=== PATIENT | female | born 1955 | race Caucasian/White ===

== ENCOUNTER → 2017-08-07 | Outpatient (CLI) | payer OTHER ==
--- NOTE | 2017-08-08 08:01 | MM ---
Reason for exam: screening (asymptomatic). Last mammogram was performed 1 year ago. History: Patient is postmenopausal. Physical Findings: A clinical breast exam by your physician is recommended on an annual basis and results should be correlated with mammographic findings. MG Screening Mammo w CAD Bilateral CC and MLO view(s) were taken. Prior study comparison: August 02, 2016, bilateral MG screening mammo w CAD. July 15, 2015, bilateral MG screening mammo w CAD. The breast tissue is heterogeneously dense. This may lower the sensitivity of mammography. There is no discrete abnormality. No significant changes when compared with prior studies. ASSESSMENT: Negative, BI-RAD 1 RECOMMENDATION: Routine screening mammogram of both breasts in 1 year.
== END | disposition home or self-care (01) ==
LOC: RADMAMWWP 10:19
PROVIDERS: ATTEND Family Medicine
DX: Z12.31 Encounter for screening mammogram for malignant neoplasm of breast (principal)

== ENCOUNTER → 2018-08-22 | Outpatient (CLI) | payer OTHER ==
--- NOTE | 2018-08-23 12:25 | MM ---
Reason for exam: screening (asymptomatic). Last mammogram was performed 1 year ago. History: Patient is postmenopausal. Physical Findings: A clinical breast exam by your physician is recommended on an annual basis and results should be correlated with mammographic findings. MG Screening Mammo w CAD Bilateral CC and MLO view(s) were taken. Prior study comparison: August 07, 2017, bilateral MG screening mammo w CAD. August 02, 2016, bilateral MG screening mammo w CAD. The breast tissue is heterogeneously dense. This may lower the sensitivity of mammography. There is chronic nodularity in the left breast. There is no dominant lesion. No significant changes when compared with prior studies. ASSESSMENT: Benign, BI-RAD 2 RECOMMENDATION: Routine screening mammogram of both breasts in 1 year.
== END | disposition home or self-care (01) ==
LOC: RADMAMWWP 09:32
PROVIDERS: ATTEND Family Medicine
DX: Z12.31 Encounter for screening mammogram for malignant neoplasm of breast (principal)
CPT/HCPCS: 77067

== ENCOUNTER → 2019-10-04 | Outpatient (CLI) | payer OTHER ==
--- NOTE | 2019-10-10 10:01 | MM ---
Reason for exam: screening (asymptomatic). Last mammogram was performed 1 year and 1 month ago. History: Patient is postmenopausal. Physical Findings: A clinical breast exam by your physician is recommended on an annual basis and results should be correlated with mammographic findings. MG 3D Screening Mammo W/Cad Bilateral CC and MLO view(s) were taken. Prior study comparison: August 22, 2018, bilateral MG screening mammo w CAD. August 07, 2017, bilateral MG screening mammo w CAD. There are scattered fibroglandular densities. There is chronic nodularity in the left breast. No significant changes when compared with prior studies. ASSESSMENT: Benign, BI-RAD 2 RECOMMENDATION: Routine screening mammogram of both breasts in 1 year.
== END | disposition home or self-care (01) ==
LOC: RADMAMWWP 09:51
PROVIDERS: ATTEND Family Medicine
DX: Z12.31 Encounter for screening mammogram for malignant neoplasm of breast (principal)
CPT/HCPCS: 77063; 77067

== ENCOUNTER → 2021-01-19 | Outpatient (CLI) | payer OTHER ==
--- NOTE | 2021-01-19 15:41 | US ---
EXAMINATION TYPE: US thyroid st tissue head/neck DATE OF EXAM: 01/19/2021 COMPARISON: NONE CLINICAL HISTORY: R94.6 Abn thyroid labs. Tekes Levothyroxine GLAND SIZE: Right Lobe: 6.1 x 3.5 x 3.6 cm Overall Parenchyma: heterogenous Left Lobe: 5.7 x 2.3 x 2.6 cm Overall Parenchyma: heterogeneous Isthmus Thickness: 0.9 cm NODULES RIGHT: # of nodules measured on right: 3 largest of multiple 1. 1.8 X 1.9 x 2.0 cm, upper, solid, hyperechoic nodule, which is taller than wide, with smooth mar gins, without echogenic foci. 2. 1.8 X 2.0 x 2.0 cm, mid pole, solid or almost completely solid, hypoechoic nodule, which is wide as tall, with smooth margins, without echogenic foci. 3. 1.9 1.3x 1.5m, lower pole, mixed cystic and solid, hypoechoic nodule, which is taller than wide, with ill-defined margins, with echogenic foci. LEFT: # of nodules measured on left: 2 largest of multiple 1.1.4 X 1.7 x 1.0 cm, mid pole , solid or almost completely solid, hyperechoic nodule, which is wide r than tall, with ill-defined margins, without echogenic foci. 2. 0.6 X 0.4 x 0.4 cm, lower , mixed cystic and solid, hyperechoic nodule, which is wide as is milton l, with ill-defined margins, with echogenic foci. ISTHMUS: # of nodules measured in the isthmus: 0 Bilateral neck scanned: no evidence of lymphadenopathy. IMPRESSION: 1. Thyroidomegaly with nonspecific, multiple thyroid nodules as noted above. The need to biopsy shoul d be made clinically.
--- NOTE | 2021-01-19 15:44 | US ---
EXAMINATION TYPE: US carotid duplex BILAT DATE OF EXAM: 01/19/2021 COMPARISON: NONE CLINICAL HISTORY: I10 HTN R09.89 Carotid bruit.... Controlled HTN EXAM MEASUREMENTS: RIGHT: Peak Systolic Velocity (PSV) cm/sec ----- Right CCA: 76.3 ----- Right ICA: 87.9 ----- Right ECA: 73.3 ICA/CCA ratio: 1.2 RIGHT: End Diastole cm/sec ----- Right CCA: 22.3 ----- Right ICA: 22.2 ----- Right ECA: 21.2 LEFT: Peak Systolic Velocity (PSV) cm/sec ----- Left CCA: 66.9 ----- Left ICA: 91.0 ----- Left ECA: 89.9 ICA/CCA ratio: 1.4 LEFT: End Diastole cm/sec ----- Left CCA: 19.6 ----- Left ICA: 32.6 ----- Left ECA: 10.6 VERTEBRALS (direction of flow): Right Vertebral: Antegrade Left Vertebral: Antegrade Rhythm: Arrhythmia Very mild intimal wall thickening is noted at bilateral carotid bifurcation. IMPRESSION: No evidence for hemodynamically significant stenosis. Criteria for Assigning % of Stenosis / Diameter reduction (Estimation based on the indirect measurements of the internal carotid artery velocities (ICA PSV). 1. Normal (no stenosis)=ICA PSV < 125 cm/s: ratio < 2.0: ICA EDV<40 cm/s. 2. Less than 50% stenosis=ICA PSV < 125 cm/s: ratio < 2.0: ICA EDV<40 cm/s. 3. 50 to 69% stenosis=ICA PSV of 125 to 230 cm/s: ration 2.0 ? 4.0: ICA EDV 40-100 cm/s. 4. Greater than 70% stenosis to near occlusion= ICA PSV > 230 cm/s: ratio > 4.0: ICA EDV > 100 cm/s. 5. Near occlusion= ICA PSV velocities may be low or undetectable: variable ratio and ICA EDV. 6. Total occlusion=unable to detect flow.
--- NOTE | 2021-01-20 10:52 | ECHOF ---
Referral Reason:R94.1 Abn EKG I10 HTN R09.89 Carotid bruit... MEASUREMENTS -------- HEIGHT: 160.0 cm WEIGHT: 120.2 kg BP: IVSd: 1.4 cm (0.6 - 1.1) LVIDd: 4.3 cm (3.9 - 5.3) LVPWd: 1.4 cm (0.6 - 1.1) EDV(Teich): 84 ml IVSs: 1.6 cm LVIDs: 2.8 cm LVPWs: 1.8 cm %IVS Thck: 14 % ESV(Teich): 30 ml EF(Teich): 64 % %FS: 35 % SV(Teich): 54 ml RVIDd: 3.8 cm (< 3.3) IVC: 24.78 mm RA Diam: 5.1 cm LALs A4C: 5.3 cm LAAs A4C: 19.1 cm LAESV A-L A4C: 58 ml LAESV MOD A4C: 56 ml LALs A2C: 6.0 cm LAAs A2C: 23.7 cm LAESV A-L A2C: 80 ml LAESV MOD A2C: 76 ml LAESV(A-L): 72 ml LAESV Index (A-L): 33.11 ml/m Ao Diam: 2.9 cm (2.0 - 3.7) LA Diam: 4.6 cm (2.7 - 3.8) AV Cusp: 2.2 cm (1.5 - 2.6) EPSS: 0.4 cm MV E [place]: 1.19 m/s MV DecT: 209 ms MV Dec [place]: 5.7 m/s MV A [place]: 1.37 m/s MV E/A Ratio: 0.87 MV PHT: 61 ms LVOT Vmax: 1.14 m/s LVOT maxP.20 mmHg AV Vmax: 1.75 m/s AV maxP.47 mmHg TR Vmax: 3.18 m/s TR maxP.37 mmHg RAP: 5.00 mmHg RVSP: 45.37 mmHg MV EF SLOPE: 43.85 mm/s (70 - 150) MV EXCURSION: 13.26 mm (> 18.000) FINDINGS -------- Sinus rhythm. This was a technically difficult study with suboptimal apical views. The left ventricular size is normal. There is moderate concentric left ventricular hypertrophy. O verall left ventricular systolic function is normal with, an EF between 55 - 60 %. The right ventricle is mild to moderately enlarged. LA is midly dilated 29-33ml/m2. The right atrium is mildly enlarged. 5.0mg of Lumason was utilized for enhancement of images Interatrial and interventricular septum intact. There is no evidence of aortic regurgitation. There is no evidence of aortic stenosis. [id number]-fncggtng mitral regurgitation is present. Moderate tricuspid regurgitation present. There is moderate pulmonary hypertension. The right mariza tricular systolic pressure, as measured by Doppler, is 45.37mmHg. There is no pulmonic regurgitation present. The aortic root size is normal. The inferior vena cava is mildly dilated. There is no pericardial effusion. CONCLUSIONS -------- 1. The left ventricular size is normal. 2. There is moderate concentric left ventricular hypertrophy. 3. Overall left ventricular systolic function is normal with, an EF between 55 - 60 %. 4. The right ventricle is mild to moderately enlarged. 5. LA is midly dilated 29-33ml/m2. 6. The right atrium is mildly enlarged. 7. Rcpm-in-itmhsnkh mitral regurgitation is present. 8. Moderate tricuspid regurgitation present. 9. There is moderate pulmonary hypertension. 10. The right ventricular systolic pressure, as measured by Doppler, is 45.37mmHg. 11. The inferior vena cava is mildly dilated. SENIOR WEB ARCHITECT: Anuja Mcguire RDCS
== END | disposition home or self-care (01) ==
LOC: RADECHMAIN 12:55
PROVIDERS: ATTEND Family Medicine
DX: I08.1 Rheumatic disorders of both mitral and tricuspid valves (principal); I27.20 Pulmonary hypertension, unspecified; E04.2 Nontoxic multinodular goiter
CPT/HCPCS: 76536; 93880; C8929; Q9950; 93306

== ENCOUNTER → 2021-02-24 | Outpatient (CLI) | payer MEDICARE, OTHER ==
--- NOTE | 2021-02-25 13:17 | MM ---
Reason for exam: screening (asymptomatic). Last mammogram was performed 1 year and 5 months ago. History: Patient is postmenopausal. Physical Findings: A clinical breast exam by your physician is recommended on an annual basis and results should be correlated with mammographic findings. MG Screening Mammo w CAD Bilateral CC and MLO view(s) were taken. XCCL view(s) were taken of the left breast. Prior study comparison: October 04, 2019, bilateral MG 3d screening mammo w/cad. August 22, 2018, bilateral MG screening mammo w CAD. There are scattered fibroglandular densities. There is no discrete abnormality. No significant changes when compared with prior studies. ASSESSMENT: Negative, BI-RAD 1 RECOMMENDATION: Routine screening mammogram of both breasts in 1 year.
== END | disposition home or self-care (01) ==
LOC: RADMAMWWP 08:48
PROVIDERS: ATTEND Family Medicine
DX: Z12.31 Encounter for screening mammogram for malignant neoplasm of breast (principal); Z78.0 Asymptomatic menopausal state
CPT/HCPCS: 77067

== ENCOUNTER → 2022-03-22 | Outpatient (CLI) | payer MEDICARE, OTHER ==
--- NOTE | 2022-03-23 16:44 | BD ---
EXAMINATION TYPE: Axial Bone Density DATE OF EXAM: 03/22/2022 COMPARISON: NONE CLINICAL HISTORY: 67 years year old Female. ICD-10 CODE: N95.1 POST MENOPAUSAL SYMPTOMS Height: 63.5 Weight: 251 FRAX RISK QUESTIONS: Alcohol (3 or more units per day): NO Family History (Parent hip fracture): YES MOTHER AND FATHER Glucocorticoids (More than 3mos): NO History of Fracture in Adulthood: NO Secondary Osteoporosis: 1. Type 1 Diabetes: NO 2. Hyperthyroidism: NO 3. Menopause before 45: NO 4. Malnutrition: NO 5. Chronic liver disease: NO Rheumatoid Arthritis: NO Current Tobacco Use: NO RISK FACTORS HISTORY OF: Hip Fracture (Right/Left): NO Spine Fracture: NO History of Wrist Fracture: NO Surgery to Spine/Hip(right/left)/Wrist (right/left): NO Family History of Osteoporosis: NO Active: NO Diet low in dairy products/other sources of calcium: NO Postmenopausal woman: YES Take estrogen and/or progesterone medications: NO Lost more than 2 inches in height since high school: NO Frequent falls: NO Poor Health: NO Hyperparathyroidism: NO Adrenal Insufficiency: NO MEDICATIONS: Prednisone or other steroids: NO` Thyroid Medications: LEVOTHYROXINE How Long: PAST 4 YEARS Osteoporosis Medications:NO Additional Medications: ENALAPRIL, CHOLESTEROL MEDS, MULTI VIT., EXAM MEASUREMENTS: Bone mineral densitometry was performed using the Videoflow System. Bone mineral density as measured about the Lumbar spine is: ----- L1-L4(G/cm2): 1.158 T Score Values are as follows: ----- L1: -0.9 ----- L2: -1.0 ----- L3: 1.4 ----- L4: -0.6 ----- L1-L4: -0.2 BASELINE STUDY Bone mineral density about the R hip (g/cm2): 0.932 Bone mineral density about the L hip (g/cm2): 0.912 T Score values are as follows: -----R Neck: -0.8 -----L Neck: -0.9 -----R Total: -0.2 -----L Total: 0.1 BASELINE STUDY FRAX%s: The graph provided illustrates a 4.9% chance for a major osteoporotic fx and a 0.4% chance fo r the hips probability for fx in 10 years time. IMPRESSION: Normal (Values between +1 and -1 indicate normal bone mass). Consider repeating this study in 5 year s or sooner if there is some new clinical indication. NOTE: T-SCORE=SD OF THE YOUNG ADULT MEAN.
--- NOTE | 2022-03-27 17:37 | MM ---
Reason for Exam: Screening (asymptomatic). Last mammogram was performed 1 year(s) and 1 month(s) ago. Patient History: Menarche at age 14. Patient has no children. Postmenopausal. Risk Values: Shahana 5 year model risk: 1.9%. NCI Lifetime model risk: 6.7%. Prior Study Comparison: 08/22/2018 Bilateral Screening Mammogram, [facility]. 10/04/2019 Bilateral Screening Mammogram, [facility]. 02/24/2021 Bilateral Screening Mammogram, [facility]. Tissue Density: There are scattered fibroglandular densities. Findings: Analyzed By CAD. Chronic nodularity central left breast. No significant change from prior exams. Overall Assessment: Benign, BI-RAD 2 Management: Screening Mammogram of both breasts in 1 year. 1. A clinical breast exam by your physician is recommended on an annual basis and results should be correlated with mammographic findings. 2. The patient should continue monthly self breast exams. 3. A negative mammogram should not preclude additional follow-up of suspicious palpable abnormalities. Electronically signed and approved by: Michael Silva M.D. Radiologist
== END | disposition home or self-care (01) ==
LOC: RADMAMWWP 14:27
PROVIDERS: ATTEND Family Medicine
DX: Z12.31 Encounter for screening mammogram for malignant neoplasm of breast (principal); Z78.0 Asymptomatic menopausal state
CPT/HCPCS: 77067; 77080

== ENCOUNTER 2022-04-09 08:03 | Emergency (ER) | payer MEDICARE, OTHER ==
[2022-04-09 08:11] VITALS: RESP 16
--- NOTE | 2022-04-09 08:22 | ED ---
Fall HPI - General Chief Complaint: Fall Stated Complaint: Abd pain/IHS Time Seen by Provider: 04/09/22 08:13 Source: patient, RN notes reviewed Mode of arrival: ambulatory Limitations: no limitations - History of Present Illness Initial Comments: This is a 67-year-old female presents emergency Department chief complaint of right-sided rib pain. Patient states that she had a trip and fall on falling onto the ground. Patient states she no other injuries but melena right side is complaining of right-sided rib pain. She denies any significant bruising or shortness breath at rest she does complain of pain with certain movements especially twisting, bending and deep inspiration. Patient denies any hematuria and no abdominal bruising or abdominal pain. - Related Data Previous Rx's Medication Instructions Recorded traMADol HCl [Ultram] 50 mg PO Q6H PRN #12 tab 04/09/22 Allergies Allergy/AdvReac Type Severity Reaction Status Date / Time acetaminophen Allergy Rash/Hives Verified 04/09/22 08:05 Review of Systems ROS Statement: Those systems with pertinent positive or pertinent negative responses have been documented in the HPI. ROS Other: All systems not noted in ROS Statement are negative. Past Medical History Past Medical History: Hyperlipidemia, Hypertension, Thyroid Disorder History of Any Multi-Drug Resistant Organisms: None Reported Past Surgical History: No Surgical Hx Reported Past Psychological History: No Psychological Hx Reported Smoking Status: Current every day smoker Past Alcohol Use History: None Reported Past Drug Use History: None Reported General Exam Limitations: no limitations General appearance: alert, in no apparent distress Head exam: Present: atraumatic, normocephalic, normal inspection Eye exam: Present: normal appearance, PERRL, EOMI. Absent: scleral icterus, conjunctival injection, periorbital swelling Neck exam: Present: normal inspection, full ROM. Absent: tenderness, meningismus, lymphadenopathy Respiratory exam: Present: normal lung sounds bilaterally, chest wall tenderness (Right sided anterior lateral rib tenderness). Absent: respiratory distress, wheezes, rales, rhonchi, stridor Cardiovascular Exam: Present: regular rate, normal rhythm, normal heart sounds. Absent: systolic murmur, diastolic murmur, rubs, gallop, clicks Back exam: Present: full ROM. Absent: tenderness, paraspinal tenderness, vertebral tenderness Neurological exam: Present: alert, oriented X3, CN II-XII intact, reflexes normal. Absent: motor sensory deficit Skin exam: Present: warm, dry, intact, normal color. Absent: rash Course Vital Signs 04/09/22 08:06 Temperature 97.9 F Pulse Rate 105 H Respiratory 16 Rate Blood Pressure 150/76 O2 Sat by Pulse 99 Oximetry Medical Decision Making - Medical Decision Making X-rays and is negative for acute fracture, pneumothorax. Patient has right- sided rib contusion. Patient discharged with pain control return parameters were discussed rediscussed deep inspiration. Disposition Clinical Impression: Fall, Contusion of rib on right side Disposition: HOME SELF-CARE Condition: Stable Instructions (If sedation given, give patient instructions): Rib Contusion (ED) Additional Instructions: Please return to the Emergency Department if symptoms worsen or any other concerns. Prescriptions: traMADol HCl [Ultram] 50 mg PO Q6H PRN #12 tab PRN Reason: Pain Is patient prescribed a controlled substance at d/c from ED?: Yes When asked, does pt state using other controlled substances?: No If prescribed controlled substance>3 days was MAPS reviewed?: Prescribed <3 Days If opioid is for acute pain is fill amount 7 days or less?: Yes If Rx opioid, was Start Talking consent form obtained?: Yes Referrals: Page Stahl MD [Primary Care Provider] - 1-2 days Time of Disposition: 09:03
--- NOTE | 2022-04-09 08:44 | XR ---
EXAMINATION TYPE: XR ribs RT w pa chest xray DATE OF EXAM: 04/09/2022 COMPARISON: NONE HISTORY: Pain TECHNIQUE: Single view of the chest 4 views of the ribs are submitted. FINDINGS: The lungs are clear. No Evidence for pneumothorax. No evidence for focal contusion. Medi astinal structures are midline. Evaluation of the ribs fails to demonstrate evidence for displaced r ib fracture or secondary sign of rib fracture. IMPRESSION: Negative study
[2022-04-09 09:14] VITALS: BP 175/84; PULSE 87; TEMP 98
== END 2022-04-09 09:12 | disposition home or self-care (01) ==
LOC: EC 08:03
DX: S20.211A Contusion of right front wall of thorax, initial encounter (principal); I10 Essential (primary) hypertension; E78.5 Hyperlipidemia, unspecified; F17.200 Nicotine dependence, unspecified, uncomplicated; W01.0XXA Fall on same level from slipping, tripping and stumbling without subsequent striking against object, initial encounter
CPT/HCPCS: 99284

== ENCOUNTER → 2022-04-13 | Outpatient (CLI) | payer MEDICARE, OTHER ==
--- NOTE | 2022-04-13 12:50 | US ---
EXAMINATION TYPE: US thyroid st tissue head/neck DATE OF EXAM: 04/13/2022 COMPARISON: US 01/19/2021 CLINICAL HISTORY: E04.2 NONTOXIC MULTINODULAR GOITER. Multinodular Goiter, Enlarged Thyroid GLAND SIZE: Right Lobe: 6.9 x 3.1 x 2.9 cm Overall Parenchyma: heterogenous Left Lobe: 4.8 x 2.9 x 2.5 cm Overall Parenchyma: heterogeneous Isthmus Thickness: 0.6 cm NODULES RIGHT: # of nodules measured on right: 3 1. 2.1 X 2.0 x 2.2 cm, upper , solid , hyperechoic nodule, which is wider than tall, with smooth ma rgins, without echogenic foci. Prior size: 1.8 x 1.9 x 2.0 cm 2. 1.8 X 2.0 x 1.9 cm, mid pole, solid, hypoechoic nodule, which is taller than wide, with smooth m argins, without echogenic foci. Prior size: 1.8 x 2.0 x 2.0 cm 3. 1.1 X 1.2 x 1.4 cm, lower pole, mixed cystic and solid, hypoechoic nodule, which is wider than t all, with ill-defined margins, with echogenic foci. Prior size: 1.9 x 1.3 x 1.5 cm LEFT: # of nodules measured on left: 2 1. 2.2 X 1.3 x 1.9 cm, mid pole, solid or almost completely solid, hypoechoic nodule, which is wide r than tall, with ill-defined margins, without echogenic foci. Prior size: 1.4 x 1.7 x 1.5 cm 2. 0.5 X 0.5 x 0.7 cm, lower polemixed cystic and solid, hyperechoic nodule, which is wider than ta ll, with ill-defined margins, with echogenic foci. Prior size: 0.6x0.4x 0.4m ISTHMUS: # of nodules measured in the isthmus: 0 Bilateral neck scanned, no evidence of lymphadenopathy. IMPRESSION: 1. Enlarging nodule midpole left thyroid lobe. Remaining nodularity remains stable. Glandular heterog eneity.
== END | disposition home or self-care (01) ==
LOC: RADUSWWP 10:48
PROVIDERS: ATTEND Internal Medicine
DX: E04.2 Nontoxic multinodular goiter (principal)
CPT/HCPCS: 76536

== ENCOUNTER → 2022-08-16 | Outpatient (CLI) | payer MEDICARE, OTHER ==
--- NOTE | 2022-08-16 18:10 | CT ---
EXAMINATION TYPE: CT abdomen pelvis w con CT DLP: 2475.9 mGycm, Automated exposure control for dose reduction was used. DATE OF EXAM: 08/16/2022 5:35 PM COMPARISON: None CLINICAL INDICATION:Female, 67 years old with history of R10.11 RIGHT UPPER QUADRANT PAIN,[id number]; RIGH T UPPER QUADRANT PAIN TECHNIQUE: Axial CT of the abdomen and pelvis. Sagittal and coronal reformats were created on a [employer] workstation. Contrast used:70ml mL of Isovue 300 with IV Contrast, Oral contrast used: with Oral Contrast FINDINGS: LOWER CHEST: Unremarkable ABDOMEN LIVER: Unremarkable GALLBLADDER AND BILE DUCTS: Unremarkable. PANCREAS: Unremarkable. SPLEEN: Unremarkable. ADRENAL GLANDS: Unremarkable. KIDNEYS AND URETERS: Is a dominant mass within the right kidney measuring 10.4 x 9.4 x 10.7 cm. Saccu lar outpouching extends more cephalad measuring at least 4.3 x 1.8 cm which is better appreciated on sagittal imaging series 8 image 52. No evidence of hydronephrosis within either kidney. There is no c ontrast seen on delayed imaging of the right kidney. Around the right renal mass there is vascular re cruitment with tortuous vessels noted. This mass displaces the IVC medially. PELVIS BLADDER: Unremarkable REPRODUCTIVE: Somewhat lobulated contour to the uterus. ABDOMEN & PELVIS STOMACH AND BOWEL: No evidence of bowel obstruction. PERITONEUM: No evidence of pneumoperitoneum or free fluid. VASCULATURE: No evidence of aortic aneurysm. MUSCULOSKELETAL: No acute osseous abnormalities, multilevel disc degeneration changes are seen throug hout the spine. LYMPH NODES: No gross evidence for lymphadenopathy. SOFT TISSUE/ABDOMINAL WALL: Small fat-containing umbilical hernia. IMPRESSION: 1. Right renal mass measuring up to at least 10.7 cm which extends beyond the renal margin is felt t o be extending more superiorly. Findings highly concerning for renal cell carcinoma. Further workup i s recommended. 2. Lobulated uterus which could represent underlying fibroid changes. Consider pelvic ultrasound if n ot recently performed for evaluation of the endometrium.
== END | disposition home or self-care (01) ==
LOC: RADCTMAIN 15:11
PROVIDERS: ATTEND Family Medicine
DX: N28.89 Other specified disorders of kidney and ureter (principal); N85.8 Other specified noninflammatory disorders of uterus
CPT/HCPCS: 74177; Q9967

== ENCOUNTER 2022-08-21 11:44 | Observation (INO) | payer MEDICARE, OTHER ==
[2022-08-21 12:13] LABS: Basophils % (A) 0 %; Eosinophils # (A) 0.1 k/uL (0-0.7); Eosinophils % (A) 1 %; HCT 34.2 % (34.0-46.0); HGB 11.1 gm/dL (11.4-16.0); Hypochromasia Slight; Lymphocytes # (A) 0.5 k/uL (1.0-4.8); Lymphocytes % (A) 3 %; MCH 27.5 pg (25.0-35.0); MCHC 32.4 g/dL (31.0-37.0); MCV 84.7 fL (80.0-100.0); Mean Platelet Volume 8.3; Monocytes # (A) 0.6 k/uL (0-1.0); Monocytes % (A) 4 %; Neutrophils # (A) 13.5 k/uL (1.3-7.7); Neutrophils % (A) 91 %; Platelet Count 437 k/uL (150-450); RBC 4.04 m/uL (3.80-5.40); WBC 14.9 k/uL (3.8-10.6)
[2022-08-21 12:35] LABS: Albumin 3.8 g/dL (3.5-5.0); Calcium 8.6 mg/dL (8.4-10.2); Potassium 4.2 mmol/L (3.5-5.1); Total Bilirubin 0.5 mg/dL (0.2-1.3); Total Protein 6.9 g/dL (6.3-8.2)
[2022-08-21 12:36] LABS: INR 1.1 (<1.2); Partial Thromboplastin Time 26.6 sec (22.0-30.0); Prothrombin Time 11.8 sec (9.0-12.0)
--- NOTE | 2022-08-21 12:58 | ED ---
General Adult HPI - General Source: patient, RN notes reviewed, old records reviewed Mode of arrival: ambulatory Limitations: no limitations - History of Present Illness -: hour(s) Location: chest (ribs right side) Radiation: flank (right) Severity scale (1-10): 5 Quality: aching Consistency: constant Improves with: immobilization Worsens with: other (palpation) Associated Symptoms: syncope Treatments Prior to Arrival: none <Pool Alonso - Last Filed: 08/21/22 15:50> <Pedro Luis Hudson - Last Filed: 08/21/22 19:15> - General Chief complaint: Syncope Stated complaint: rt sided chest pain, syncope Time Seen by Provider: 08/21/22 12:55 - History of Present Illness Initial comments: 67-year-old female presents to the emergency room with complaints of having a syncopal episode while at work today. Patient states that she was walking and felt a little dizzy and then woke up on the ground. She landed on her right side and is complaining of right rib pain. States she has a history of hypertension. Recently had a CT scan for right sided abdominal pain by her primary care doctor and was found to have a right renal carcinoma. She did call her primary care doctor today after her syncopal episode who recommended she come to the emergency room for evaluation. She denies any chest pain or difficulty in breathing. States that she did not hit her head when she fell. (Pool Alonso) - Related Data Home Medications Medication Instructions Recorded Confirmed Enalapril [Vasotec] 10 mg PO BID 08/21/22 08/21/22 Levothyroxine Sodium 25 mcg PO DAILY 08/21/22 08/21/22 Simvastatin [Zocor] 20 mg PO HS 08/21/22 08/21/22 Allergies Allergy/AdvReac Type Severity Reaction Status Date / Time acetaminophen Allergy Rash/Hives Verified 08/21/22 15:50 Review of Systems ROS Other: All systems not noted in ROS Statement are negative. <Pool Alonso - Last Filed: 08/21/22 15:50> ROS Other: All systems not noted in ROS Statement are negative. <Pedro Luis Hudson - Last Filed: 08/21/22 19:15> ROS Statement: Those systems with pertinent positive or pertinent negative responses have been documented in the HPI. Past Medical History Past Medical History: Hyperlipidemia, Hypertension, Thyroid Disorder History of Any Multi-Drug Resistant Organisms: None Reported Past Surgical History: No Surgical Hx Reported Past Psychological History: No Psychological Hx Reported Smoking Status: Current every day smoker Past Alcohol Use History: None Reported Past Drug Use History: None Reported <Pool Alonso - Last Filed: 08/21/22 15:50> General Exam Limitations: no limitations General appearance: alert, in no apparent distress Head exam: Present: atraumatic, normocephalic. Absent: normal inspection Eye exam: Absent: scleral icterus, conjunctival injection, periorbital swelling ENT exam: Present: mucous membranes moist Neck exam: Present: normal inspection, full ROM. Absent: tenderness, meningismus Respiratory exam: Present: normal lung sounds bilaterally. Absent: respiratory distress, wheezes, rales, rhonchi, stridor, chest wall tenderness, accessory muscle use Cardiovascular Exam: Present: normal rhythm. Absent: regular rate GI/Abdominal exam: Present: soft, tenderness (right upper). Absent: distended, guarding, rebound, rigid Extremities exam: Present: normal inspection, full ROM, normal capillary refill. Absent: pedal edema, calf tenderness Back exam: Present: normal inspection, full ROM, tenderness, CVA tenderness (R). Absent: muscle spasm, paraspinal tenderness, vertebral tenderness, rash noted Neurological exam: Present: alert, oriented X3 Psychiatric exam: Present: normal affect, normal mood Skin exam: Present: warm, dry, normal color. Absent: cyanosis, diaphoretic, petechiae, pallor <Pool Alonso - Last Filed: 08/21/22 15:50> Course Vital Signs 08/21/22 08/21/22 08/21/22 11:47 16:00 18:00 Temperature 98 F 98.9 F Pulse Rate 87 93 75 Respiratory 16 18 18 Rate Blood Pressure 145/72 147/70 148/95 O2 Sat by Pulse 99 97 96 Oximetry EKG Findings - EKG Results: EKG: sinus rhythm (Ventricular rate 70, LA interval 0.136, QRS 0.100, QTC 0.400) <Pool Alonso Last Filed: 08/21/22 15:50> Medical Decision Making - Lab Data Result diagrams: 08/21/22 11:56 08/21/22 11:56 <Pool Alonso - Last Filed: 08/21/22 15:50> - Lab Data Result diagrams: 08/21/22 11:56 08/21/22 11:56 - Radiology Data Radiology results: report reviewed (CT angios chest shows suboptimal study without central acute pulmonary embolism. Mild cardiomegaly and suggesting edema versus poor inspiration) <Pedro Luis Hudson - Last Filed: 08/21/22 19:15> - Medical Decision Making Patient presents with a syncopal episode today at work. Did feel dizzy before falling from standing position. States landed on her right side and has right- sided pain. Patient had an outpatient CT scan of the abdomen pelvis on August 16 for right sided pain and was found to have a right renal mass measuring 10.7 cm highly concerning for renal cell carcinoma. White blood cell count 14.9 with a left shift. Troponin negative at 0.012 , EKG shows sinus rhythm. Creatinine 1.31 with a GFR of 42. D-dimer elevated 10. IV fluids were given prior to and will be given post CT. Case signed out to Dr. Hudson. (Pool Alonso) Patient reevaluated and resting complain bed. Patient does have right-sided chest discomfort however feels this is likely how she landed when she passed out. No dyspnea. Patient was recently diagnosed with renal mass this week and has not had a chance follow-up yet. Case was discussed with Dr. Logan, who will admit covering Dr. Freedman. (Pedro Luis Hudson) - Lab Data Lab Results 08/21/22 08/21/22 08/21/22 Range/Units 11:56 11:56 11:56 WBC 14.9 H (3.8-10.6) k/uL RBC 4.04 (3.80-5.40) m/uL Hgb 11.1 L (11.4-16.0) gm/dL Hct 34.2 (34.0-46.0) % MCV 84.7 (80.0-100.0) fL MCH 27.5 (25.0-35.0) pg MCHC 32.4 (31.0-37.0) g/dL RDW 13.0 (11.5-15.5) % Plt Count 437 (150-450) k/uL MPV 8.3 Neutrophils % 91 % Lymphocytes % 3 % Monocytes % 4 % Eosinophils % 1 % Basophils % 0 % Neutrophils # 13.5 H (1.3-7.7) k/uL Lymphocytes # 0.5 L (1.0-4.8) k/uL Monocytes # 0.6 (0-1.0) k/uL Eosinophils # 0.1 (0-0.7) k/uL Basophils # 0.0 (0-0.2) k/uL Hypochromasia Slight PT 11.8 (9.0-12.0) sec INR 1.1 (<1.2) APTT 26.6 (22.0-30.0) sec D-Dimer 10.63 H (<0.60) mg/L FEU Sodium 139 (137-145) mmol/L Potassium 4.2 (3.5-5.1) mmol/L Chloride 102 (98-107) mmol/L Carbon Dioxide 27 (22-30) mmol/L Anion Gap 10 mmol/L BUN 17 (7-17) mg/dL Creatinine 1.31 H (0.52-1.04) mg/dL Est GFR (CKD-EPI)AfAm 49 (>60 ml/min/1.73 sqM) Est GFR (CKD-EPI)NonAf 42 (>60 ml/min/1.73 sqM) Glucose 141 H (74-99) mg/dL Calcium 8.6 (8.4-10.2) mg/dL Magnesium 2.0 (1.6-2.3) mg/dL Total Bilirubin 0.5 (0.2-1.3) mg/dL AST 24 (14-36) U/L ALT 22 (4-34) U/L Alkaline Phosphatase 118 (38-126) U/L Troponin I (0.000-0.034) ng/mL Total Protein 6.9 (6.3-8.2) g/dL Albumin 3.8 (3.5-5.0) g/dL Urine Color Urine Appearance (Clear) Urine pH (5.0-8.0) Ur Specific [place] (1.001-1.035) Urine Protein (Negative) Urine Glucose (UA) (Negative) Urine Ketones (Negative) Urine Blood (Negative) Urine Nitrite (Negative) Urine Bilirubin (Negative) Urine Urobilinogen (<2.0) mg/dL Ur Leukocyte Esterase (Negative) Urine RBC (0-5) /hpf Urine WBC (0-5) /hpf Ur Squamous Epith Cells (0-4) /hpf Urine Bacteria (None) /hpf Hyaline Casts (0-2) /lpf Urine Mucus (None) /hpf 08/21/22 08/21/22 Range/Units 11:56 16:20 WBC (3.8-10.6) k/uL RBC (3.80-5.40) m/uL Hgb (11.4-16.0) gm/dL Hct (34.0-46.0) % MCV (80.0-100.0) fL MCH (25.0-35.0) pg MCHC (31.0-37.0) g/dL RDW (11.5-15.5) % Plt Count (150-450) k/uL MPV Neutrophils % % Lymphocytes % % Monocytes % % Eosinophils % % Basophils % % Neutrophils # (1.3-7.7) k/uL Lymphocytes # (1.0-4.8) k/uL Monocytes # (0-1.0) k/uL Eosinophils # (0-0.7) k/uL Basophils # (0-0.2) k/uL Hypochromasia PT (9.0-12.0) sec INR (<1.2) APTT (22.0-30.0) sec D-Dimer (<0.60) mg/L FEU Sodium (137-145) mmol/L Potassium (3.5-5.1) mmol/L Chloride (98-107) mmol/L Carbon Dioxide (22-30) mmol/L Anion Gap mmol/L BUN (7-17) mg/dL Creatinine (0.52-1.04) mg/dL Est GFR (CKD-EPI)AfAm (>60 ml/min/1.73 sqM) Est GFR (CKD-EPI)NonAf (>60 ml/min/1.73 sqM) Glucose (74-99) mg/dL Calcium (8.4-10.2) mg/dL Magnesium (1.6-2.3) mg/dL Total Bilirubin (0.2-1.3) mg/dL AST (14-36) U/L ALT (4-34) U/L Alkaline Phosphatase (38-126) U/L Troponin I <0.012 (0.000-0.034) ng/mL Total Protein (6.3-8.2) g/dL Albumin (3.5-5.0) g/dL Urine Color Yellow Urine Appearance Cloudy H (Clear) Urine pH 5.5 (5.0-8.0) Ur Specific [place] 1.032 (1.001-1.035) Urine Protein 1+ H (Negative) Urine Glucose (UA) Negative (Negative) Urine Ketones Negative (Negative) Urine Blood Negative (Negative) Urine Nitrite Negative (Negative) Urine Bilirubin Negative (Negative) Urine Urobilinogen 3.0 (<2.0) mg/dL Ur Leukocyte Esterase Large H (Negative) Urine RBC 5 (0-5) /hpf Urine WBC 47 H (0-5) /hpf Ur Squamous Epith Cells 10 H (0-4) /hpf Urine Bacteria Rare H (None) /hpf Hyaline Casts 8 H (0-2) /lpf Urine Mucus Moderate H (None) /hpf Disposition <Pool Alonso - Last Filed: 08/21/22 15:50> Is patient prescribed a controlled substance at d/c from ED?: No Time of Disposition: 19:14 <Pedro Luis Hudson - Last Filed: 08/21/22 19:15> Clinical Impression: Syncope, Renal mass Disposition: ADMITTED IP TO THIS HOSP Referrals: Page Stahl MD [Primary Care Provider] - 1-2 days
[2022-08-21] MEDS ORDERED: SODIUM CHLORIDE 0.9% 500 ML 500 ML IV STA (13:50)
[2022-08-21] MEDS ORDERED: SODIUM CHLORIDE 0.9% 500 ML 500 ML IV ONE (13:51)
--- NOTE | 2022-08-21 16:19 | CT ---
EXAMINATION TYPE: CT angio chest DATE OF EXAM: 08/21/2022 COMPARISON: Chest x-ray April 09, 2022 HISTORY: weakness, fall right side chest pain CT DLP: 634.4 mGycm. Automated Exposure Control for Dose Reduction was Utilized. CONTRAST: CTA scan of the thorax is performed with IV Contrast, patient injected with 80 mL of Isovue 370, pulm onary embolism protocol. MIP Images are created on CT scanner and reviewed. FINDINGS: LUNGS: Exam suboptimal as patient unable to hold breath causing motion artifact limiting evaluation f or subcentimeter nodules. Overall Mosaic attenuation. No suspicious consolidation. No pleural effusio n or pneumothorax seen bilaterally. Low lung volumes noted. MEDIASTINUM: There is near equal contrast in the aorta versus main pulmonary arteries. Most dense con trast noted in the SVC. Heterogeneity in the periphery. No central pulmonary embolism. Cardiomegaly i s redemonstrated. No pericardial effusion. No greater than 1 cm mediastinal lymph nodes. No thoracic aortic aneurysm or dissection. Heterogeneous enlarged right thyroid with calcified lateral nodules. M ultinodular goiter seen on thyroid ultrasound April 13, 2022. OTHER: Partial visualization of known right renal mass or neoplasm correlating with CT abdomen and pe lvis study 5 days earlier. Some residual oral contrast in distal colon is partially imaged. IMPRESSION: 1. Suboptimal study without central acute pulmonary embolism. 2. Mild cardiomegaly and mosaic attenuation suggesting mild edema. Correlate for CHF exacerbation mike jose product of poor inspiration.
[2022-08-21 16:39] LABS: Appearance,Urine Cloudy (Clear); Bacteria,Urine Rare /hpf; Bilirubin,Urine Negative (Negative); Blood,Urine Negative (Negative); Color,Urine Yellow; Glucose,Urine (UA) Negative (Negative); Hyaline Casts,Urine 8 /lpf (0-2); Ketones,Urine Negative (Negative); Leukocyte Esterase,Urine Large (Negative); Mucus,Urine Moderate /hpf; Nitrite,Urine Negative (Negative); PH, Urine 5.5 (5.0-8.0); Protein,Urine 1+ (Negative); RBC,Urine 5 /hpf (0-5); Specific Gravity,Urine 1.032 (1.001-1.035); Squamous Epithelial Cell,Urine 10 /hpf (0-4); WBC,Urine 47 /hpf (0-5)
[2022-08-21] MEDS ORDERED: NALOXONE 0.4 MG/ML 1 ML VIAL IV PRN (19:16)
[2022-08-21] MEDS: ATORVASTATIN 10 MG TAB PO SCH (21:26)
[2022-08-21] MEDS: lisinopriL 20 MG TAB PO SCH (21:26)
[2022-08-21] MEDS: SODIUM CHLORIDE 0.9% 1,000 ML IV SCH (21:26)
--- NOTE | 2022-08-22 03:01 | P.HPIM ---
History of Present Illness H&P Date: 08/21/22 The patient is a 67-year-old female with a PMH of hypertension, hyperlipidemia, and hypothyroidism who presents to the emergency room after of syncope. The patient reports that over the past few weeks, she has been experiencing a vague diffuse abdominal discomfort, rated as mild, for which she was following up with her PCP. She underwent a CT abdomen and pelvis on 08/16, which revealed a right renal mass measuring up to at least 10.7 cm extending beyond the renal margin, highly concerning for renal cell carcinoma. The patient was called this morning at around 8 AM while she was at work by her PCP and informed that she has this renal mass, suspicious for malignancy. The patient states that that at around 10:30 AM, she developed lightheadedness, no positional, for which she attempted to sit down and take some deep breaths, for roughly 30 minutes. She denied experiencing palpitations, chest discomfort, or shortness of breath during this time. States that she subsequently lost consciousness, where a coworker saw her fall to the ground, hitting the right hip and right shoulder. The patient reportedly regained consciousness within 1-2 minutes with no reported seizure-like activity, urinary incontinence, or tongue biting. The patient had no post ictal confusion but did appear to be pale by her colleagues. The patient denied ever experiencing such symptoms in the past. She reported that soon after, her symptoms resolved and at time of interview, that she feels esse ntially back at her baseline except for right lateral chest wall pain, sharp in nature, nonpleuritic. The patient denies a history of anxiety or panic disorder. In the emergency room, an EKG revealed sinus rhythm at 70 bpm with LVH and T-wave inversion in lead 3. Chest CTA revealed a suboptimal study without central acute PE with mild cardiomegaly with findings consistent with mild CHF versus poor inspiration. Laboratory evaluation was remarkable for leukocytosis of 14.9, d-dimer 10.63, creatinine 1.31, and troponin less than 0.012, with UA consistent with UTI. Review of systems: Pertinent positives and negatives as discussed in HPI, a complete review of systems was performed and all other systems are negative. Physical examination: General: non toxic, no distress, appears at stated age, obese Derm: no unusual rashes/lesions, warm Head: atraumatic, normocephalic, symmetric Eyes: EOMI, no lid lag, anicteric sclera, pupils equal round reactive to light ENT: Nose and ears atraumatic Neck: No cervical lymphadenopathy, trachea midline, supple Mouth: no lip lesion, mucus membranes moist Cardiovascular: S1S2 reg, no murmur, positive dorsalis pedis pulse bilateral, no edema Lungs: CTA bilateral, no rhonchi, no rales, no accessory muscle use, no chest wall bruising noted Abdominal: soft, nontender to palpation, no guarding Ext: muscle strength 5 out of 5 in all 4 extremities grossly, no gross muscle atrophy, no contractures, Neuro: CN II-XI grossly intact, no gross focal neuro deficits Psych: Alert, oriented, appropriate affect Assessment/plan Syncope, unclear etiology, possibly secondary to panic attack -Cardiac monitoring -Fall precautions -Echocardiogram -Obtain orthostatics Elevated d-dimer -Suspect may be elevated due to ongoing malignancy Recently diagnosed large renal mass -Urology consulted UTI -Continue ceftriaxone -Follow up urine cultures DVT prophylaxis -Heparin subq The patient is admitted with an anticipated [] than 2 midnight stay for evaluation of []. CODE STATUS: Full Code Discussed with: Patient Anticipated discharge date: [] Anticipated discharge place: Home Past Medical History Past Medical History: Hyperlipidemia, Hypertension, Thyroid Disorder History of Any Multi-Drug Resistant Organisms: None Reported Past Surgical History: No Surgical Hx Reported Past Psychological History: No Psychological Hx Reported Smoking Status: Current every day smoker Past Alcohol Use History: None Reported Past Drug Use History: None Reported - Past Family History Mother Family Medical History: Hypertension Medications and Allergies Home Medications Medication Instructions Recorded Confirmed Type Enalapril [Vasotec] 10 mg PO BID 08/21/22 08/21/22 History Levothyroxine Sodium 25 mcg PO DAILY 08/21/22 08/21/22 History Simvastatin [Zocor] 20 mg PO HS 08/21/22 08/21/22 History Allergies Allergy/AdvReac Type Severity Reaction Status Date / Time acetaminophen Allergy Rash/Hives Verified 08/21/22 15:50 Physical Exam Vitals: Vital Signs Temp Pulse Resp BP Pulse Ox 08/21/22 21:25 85 18 118/70 99 08/21/22 18:00 98.9 F 75 18 148/95 96 08/21/22 16:00 93 18 147/70 97 08/21/22 11:47 98 F 87 16 145/72 99 Intake and Output 08/21/22 08/21/22 08/21/22 06:59 14:59 22:59 Other: Weight 107.501 kg Results CBC & Chem 7: 08/21/22 11:56 11 11:56 Labs: Abnormal Lab Results - Last 24 Hours (Table) 08/21/22 08/21/22 08/21/22 Range/Units 11:56 11:56 11:56 WBC 14.9 H (3.8-10.6) k/uL Hgb 11.1 L (11.4-16.0) gm/dL Neutrophils # 13.5 H (1.3-7.7) k/uL Lymphocytes # 0.5 L (1.0-4.8) k/uL D-Dimer 10.63 H (<0.60) mg/L FEU Creatinine 1.31 H (0.52-1.04) mg/dL Glucose 141 H (74-99) mg/dL Urine Appearance (Clear) Urine Protein (Negative) Ur Leukocyte Esterase (Negative) Urine WBC (0-5) /hpf Ur Squamous Epith Cells (0-4) /hpf Urine Bacteria (None) /hpf Hyaline Casts (0-2) /lpf Urine Mucus (None) /hpf 08/21/22 Range/Units 16:20 WBC (3.8-10.6) k/uL Hgb (11.4-16.0) gm/dL Neutrophils # (1.3-7.7) k/uL Lymphocytes # (1.0-4.8) k/uL D-Dimer (<0.60) mg/L FEU Creatinine (0.52-1.04) mg/dL Glucose (74-99) mg/dL Urine Appearance Cloudy H (Clear) Urine Protein 1+ H (Negative) Ur Leukocyte Esterase Large H (Negative) Urine WBC 47 H (0-5) /hpf Ur Squamous Epith Cells 10 H (0-4) /hpf Urine Bacteria Rare H (None) /hpf Hyaline Casts 8 H (0-2) /lpf Urine Mucus Moderate H (None) /hpf Microbiology - Last 24 Hours (Table) 08/21/22 16:20 Urine Culture - Preliminary Urine,Voided
[2022-08-22] MEDS: LEVOTHYROXINE 25 MCG TAB PO SCH (06:45)
[2022-08-22] MEDS ORDERED: HEPARIN SODIUM,PORCINE/PF 5,000 UNIT/0.5 ML SYRINGE SQ SCH (08:00)
[2022-08-22] MEDS: lisinopriL 20 MG TAB PO SCH ×2 (08:37→20:08)
[2022-08-22] MEDS: SODIUM CHLORIDE 0.9% 1,000 ML IV SCH (08:38)
--- NOTE | 2022-08-22 09:41 | P.GSCN ---
History of Present Illness Consult date: 08/22/22 Reason for Consult: Right renal mass Requesting physician: Pedro Luis Hudson History of present illness: The patient is a 67-year-old female with a PMH of hypertension, hyperlipidemia, and hypothyroidism. She presented to the emergency room on 08/21/22 after syncope. The patient reports that over the past few weeks, she has been experiencing a vague diffuse abdominal discomfort, rated as mild, for which she was following up with her PCP. She underwent a CT abdomen and pelvis on 08/16, which revealed a right renal mass measuring up to at least 10.7 cm extending beyond the renal margin, highly concerning for renal cell carcinoma. The patient states that she developed lightheadedness, not positional, for which she attempted to sit down and take some deep breaths, for roughly 30 minutes. She denied experiencing palpitations or shortness of breath. States that she subsequently lost consciousness, where a coworker saw her fall to the ground, hitting the right hip and right shoulder. The patient reportedly regained consciousness within 1-2 minutes with no reported seizure-like activity, urinary incontinence, or tongue biting. The patient had no post ictal confusion but did appear to be pale by her colleagues. The patient denied ever experiencing such symptoms in the past. She also reported right lateral chest wall pain, sharp in nature, nonpleuritic. The patient denies a history of anxiety or panic dis order. In the emergency room, an EKG revealed sinus rhythm at 70 bpm with LVH and T-wave inversion in lead 3. Chest CTA revealed a suboptimal study without central acute PE with mild cardiomegaly with findings consistent with mild CHF versus poor inspiration. Laboratory evaluation was remarkable for leukocytosis of 14.9, d-dimer 10.63, creatinine 1.31, and troponin less than 0.012, with UA consistent with UTI. Review of Systems - Constitutional Reports weight loss, Denies chills, Denies fever - EENT Ears, nose, mouth and throat: Denies dysphagia - Cardiovascular Denies edema, Denies palpitations, Denies shortness of breath - Gastrointestinal Reports abdominal pain, Reports loss of appetite, Denies nausea, Denies vomiting - Genitourinary Genitourinary: Denies difficulty voiding, Denies flank pain - Integumentary Denies rash, Denies unusual bruising - Neurological Reports syncope Past Medical History Past Medical History: Hyperlipidemia, Hypertension, Thyroid Disorder History of Any Multi-Drug Resistant Organisms: None Reported Past Surgical History: No Surgical Hx Reported Past Psychological History: No Psychological Hx Reported Smoking Status: Current every day smoker Past Alcohol Use History: None Reported Past Drug Use History: None Reported - Past Family History Mother Family Medical History: Hypertension Medications and Allergies Home Medications Medication Instructions Recorded Confirmed Type Enalapril [Vasotec] 10 mg PO BID 08/21/22 08/21/22 History Levothyroxine Sodium 25 mcg PO DAILY 08/21/22 08/21/22 History Simvastatin [Zocor] 20 mg PO HS 08/21/22 08/21/22 History Allergies Allergy/AdvReac Type Severity Reaction Status Date / Time acetaminophen Allergy Rash/Hives Verified 08/21/22 15:50 Surgical - Exam Vital Signs Temp Pulse Resp BP Pulse Ox 98 F 87 16 145/72 99 08/21/22 11:47 08/21/22 11:47 08/21/22 11:47 08/21/22 11:47 08/21/22 11:47 - General well developed, well nourished, no distress, obese - Eyes normal ocular movement - ENT no hearing loss - Respiratory normal expansion, normal respiratory effort - Abdomen Abdomen: soft, tender, masses (Palpable right fixed abdominal mass) - Psychiatric oriented to time, oriented to person, oriented to place, speech is normal Results - Labs 08/22/22 09:58 08/22/22 09:58 Abnormal Lab Results - Last 24 Hours (Table) 08/21/22 08/21/22 08/21/22 Range/Units 11:56 11:56 11:56 WBC 14.9 H (3.8-10.6) k/uL Hgb 11.1 L (11.4-16.0) gm/dL Neutrophils # 13.5 H (1.3-7.7) k/uL Lymphocytes # 0.5 L (1.0-4.8) k/uL D-Dimer 10.63 H (<0.60) mg/L FEU Creatinine 1.31 H (0.52-1.04) mg/dL Glucose 141 H (74-99) mg/dL Urine Appearance (Clear) Urine Protein (Negative) Ur Leukocyte Esterase (Negative) Urine WBC (0-5) /hpf Ur Squamous Epith Cells (0-4) /hpf Urine Bacteria (None) /hpf Hyaline Casts (0-2) /lpf Urine Mucus (None) /hpf 08/21/22 Range/Units 16:20 WBC (3.8-10.6) k/uL Hgb (11.4-16.0) gm/dL Neutrophils # (1.3-7.7) k/uL Lymphocytes # (1.0-4.8) k/uL D-Dimer (<0.60) mg/L FEU Creatinine (0.52-1.04) mg/dL Glucose (74-99) mg/dL Urine Appearance Cloudy H (Clear) Urine Protein 1+ H (Negative) Ur Leukocyte Esterase Large H (Negative) Urine WBC 47 H (0-5) /hpf Ur Squamous Epith Cells 10 H (0-4) /hpf Urine Bacteria Rare H (None) /hpf Hyaline Casts 8 H (0-2) /lpf Urine Mucus Moderate H (None) /hpf Microbiology - Last 24 Hours (Table) 08/21/22 16:20 Urine Culture - Preliminary Urine,Voided Diabetes panel 08/21/22 Range/Units 11:56 Sodium 139 (137-145) mmol/L Potassium 4.2 (3.5-5.1) mmol/L Chloride 102 (98-107) mmol/L Carbon Dioxide 27 (22-30) mmol/L BUN 17 (7-17) mg/dL Creatinine 1.31 H (0.52-1.04) mg/dL Glucose 141 H (74-99) mg/dL Calcium 8.6 (8.4-10.2) mg/dL AST 24 (14-36) U/L ALT 22 (4-34) U/L Alkaline Phosphatase 118 (38-126) U/L Total Protein 6.9 (6.3-8.2) g/dL Albumin 3.8 (3.5-5.0) g/dL Calcium panel 08/21/22 Range/Units 11:56 Calcium 8.6 (8.4-10.2) mg/dL Albumin 3.8 (3.5-5.0) g/dL Pituitary panel 08/21/22 Range/Units 11:56 Sodium 139 (137-145) mmol/L Potassium 4.2 (3.5-5.1) mmol/L Chloride 102 (98-107) mmol/L Carbon Dioxide 27 (22-30) mmol/L BUN 17 (7-17) mg/dL Creatinine 1.31 H (0.52-1.04) mg/dL Glucose 141 H (74-99) mg/dL Calcium 8.6 (8.4-10.2) mg/dL Adrenal panel 08/21/22 Range/Units 11:56 Sodium 139 (137-145) mmol/L Potassium 4.2 (3.5-5.1) mmol/L Chloride 102 (98-107) mmol/L Carbon Dioxide 27 (22-30) mmol/L BUN 17 (7-17) mg/dL Creatinine 1.31 H (0.52-1.04) mg/dL Glucose 141 H (74-99) mg/dL Calcium 8.6 (8.4-10.2) mg/dL Total Bilirubin 0.5 (0.2-1.3) mg/dL AST 24 (14-36) U/L ALT 22 (4-34) U/L Alkaline Phosphatase 118 (38-126) U/L Total Protein 6.9 (6.3-8.2) g/dL Albumin 3.8 (3.5-5.0) g/dL - Imaging CT scan - chest: report reviewed US - abdomen: image reviewed (Large mass difficult to assess whether to arising from the kidney or the adrenal. To be more likely arising from the kidney. Mass is draping over the vena cava. Was not able to visualize the right renal vein) Assessment and Plan Assessment: This is 67-year-old female presents with a 10.7 cm right-sided renal mass. Mass is locally advanced area on abdominal exam it is fixed. Unable to visualize the adrenal gland on the right side or the right renal vein. Most likely the mass is arising from the right kidney, but possibly also could be arising from the right adrenal gland. No evidence of metastatic disease on CT abdomen and CT chest. Had a prolonged discussion with the patient about this finding, discussed this is highly concerning for renal cell carcinoma. But she would require further images to confirm (1) Renal mass Current Visit: Yes Status: Acute Code(s): N28.89 - OTHER SPECIFIED DISORDERS OF KIDNEY AND URETER SNOMED Code(s): 843145342 Plan: - MRI abdomen with contrast - Plasma metanephrines, PTH, aldosterone, renin, and cortisol level pending - + UA, possible contamination - Awaiting final urine culture - Continue Rocephin - Due to complexity of mass, patient was more likely require a right-sided nephrectomy at a tertiary center Impression and plan of care have been directed as dictated by the signing physician. Norma Abarca nurse practitioner acting as scribe for signing physician. Norma Abarca [facility] Palliative Care/Urology Spectralink [id number] Email: [email or web address] I personally performed and participated in the history, physical, the decision making, I agree with the assessment and plan of BEHAVIORAL MODIFICATION ASSISTANT Time with Patient: Greater than 30
[2022-08-22 10:52] LABS: Basophils % (A) 0 %; Eosinophils # (A) 0.1 k/uL (0-0.7); Eosinophils % (A) 1 %; HCT 34.6 % (34.0-46.0); HGB 10.9 gm/dL (11.4-16.0); Hypochromasia Slight; Lymphocytes # (A) 0.9 k/uL (1.0-4.8); Lymphocytes % (A) 9 %; MCH 26.8 pg (25.0-35.0); MCHC 31.4 g/dL (31.0-37.0); MCV 85.4 fL (80.0-100.0); Mean Platelet Volume 7.9; Monocytes # (A) 0.5 k/uL (0-1.0); Monocytes % (A) 5 %; Neutrophils # (A) 8.3 k/uL (1.3-7.7); Neutrophils % (A) 83 %; Platelet Count 472 k/uL (150-450); RBC 4.06 m/uL (3.80-5.40); RDW 13.2 % (11.5-15.5); WBC 9.9 k/uL (3.8-10.6)
--- NOTE | 2022-08-22 11:07 | P.PN ---
Subjective Progress Note Date: 08/22/22 Principal diagnosis: syncope Hospital Course: 67-year-old female with history of hypertension, hyperlipidemia, hypothyroidism, recent diagnosis of right renal mass concerning for renal cell carcinoma presented with a syncopal episode. Given prodromal symptoms, possible vasovagal syncope. Cardiology consulted. Troponin negative 3. Negative orthostatics. Patient had a recent echo in cardiology office. CTA chest showed no central acute pulmonary embolism, mild cardiomegaly, possible CHF exacerbation versus poor inspiration. Urology consulted, MRI abdomen with contrast pending. Subjective: Patient seen and examined at bedside. No acute events overnight. She denies any ongoing chest pain, shortness of breath, abdominal pain, diarrhea, consti pation, urinary complaints. She does have mild tenderness under her right arm from her fall. Pertinent positives and negatives as discussed above, a complete review of systems was performed and all other systems are negative. Vitals Signs Reviewed. General: nontoxic, no distress, appears at stated age Derm: warm, dry Head: atraumatic, normocephalic, symmetric Eyes: EOMI, no lid lag, anicteric sclera Mouth: no lip lesion, mucus membranes moist Cardiovascular: S1S2 reg, no murmur Lungs: CTA bilateral, no rhonchi, no rales , no accessory muscle use Abdominal: soft, nontender to palpation, no guarding, no appreciable organomegaly Ext: no gross muscle atrophy, no edema, no contractures, right axillary tenderness to palpation Neuro: CN II-XI grossly intact, no focal neuro deficits Psych: Alert, oriented, appropriate affect Assessment and Plan: Syncope, possible vasovagal -Cardiac monitoring -Fall precautions -Recent echo at cardiology office -Negative orthostatics -Cardiology consulted Elevated d-dimer -Possible secondary to malignancy Right renal mass, possible renal cell carcinoma -Urology consulted -MRI of abdomen pending Possible UTI -Was on ceftriaxone, now discontinued -Patient asymptomatic -Follow up urine cultures DVT ppx: Lovenox Code status: Full code Anticipated discharge place: Home Anticipated discharge time: Likely tomorrow Objective - Vital Signs Vital signs: Vital Signs Temp 97.9 F 08/22/22 03:15 Pulse 88 08/22/22 08:35 Resp 16 08/22/22 08:35 BP 135/71 08/22/22 08:35 Pulse Ox 95 08/22/22 08:35 FiO2 Intake & Output 08/21/22 08/22/22 08/22/22 18:59 06:59 18:59 Intake Total 0 Balance 0 Weight 107.501 kg 105.7 kg Intake: Oral 0 Other: Voiding Method Toilet # Voids 1 - Labs CBC & Chem 7: 08/22/22 09:58 08/21/22 11:56 Labs: Abnormal Lab Results - Last 24 Hours (Table) 08/21/22 08/21/22 08/21/22 Range/Units 11:56 11:56 11:56 WBC 14.9 H (3.8-10.6) k/uL Hgb 11.1 L (11.4-16.0) gm/dL Plt Count (150-450) k/uL Neutrophils # 13.5 H (1.3-7.7) k/uL Lymphocytes # 0.5 L (1.0-4.8) k/uL D-Dimer 10.63 H (<0.60) mg/L FEU Creatinine 1.31 H (0.52-1.04) mg/dL Glucose 141 H (74-99) mg/dL Urine Appearance (Clear) Urine Protein (Negative) Ur Leukocyte Esterase (Negative) Urine WBC (0-5) /hpf Ur Squamous Epith Cells (0-4) /hpf Urine Bacteria (None) /hpf Hyaline Casts (0-2) /lpf Urine Mucus (None) /hpf 08/21/22 08/22/22 Range/Units 16:20 09:58 WBC (3.8-10.6) k/uL Hgb 10.9 L (11.4-16.0) gm/dL Plt Count 472 H (150-450) k/uL Neutrophils # 8.3 H (1.3-7.7) k/uL Lymphocytes # 0.9 L (1.0-4.8) k/uL D-Dimer (<0.60) mg/L FEU Creatinine (0.52-1.04) mg/dL Glucose (74-99) mg/dL Urine Appearance Cloudy H (Clear) Urine Protein 1+ H (Negative) Ur Leukocyte Esterase Large H (Negative) Urine WBC 47 H (0-5) /hpf Ur Squamous Epith Cells 10 H (0-4) /hpf Urine Bacteria Rare H (None) /hpf Hyaline Casts 8 H (0-2) /lpf Urine Mucus Moderate H (None) /hpf Microbiology - Last 24 Hours (Table) 08/21/22 16:20 Urine Culture - Preliminary Urine,Voided
[2022-08-22 11:48] LABS: ALT 21 U/L (4-34); AST 25 U/L (14-36); African American GFR (CKD) 61 (>60 ml/min/1.73 sqM); Albumin 3.6 g/dL (3.5-5.0); Albumin/Globulin Ratio 1.1; Alkaline Phosphatase 120 U/L (38-126); Anion Gap 8 mmol/L; Blood Urea Nitrogen 17 mg/dL (7-17); Calcium 8.9 mg/dL (8.4-10.2); Carbon Dioxide 26 mmol/L (22-30); Chloride 105 mmol/L (98-107); Globulin 3.3 g/dL; Glucose 103 mg/dL (74-99); Non-African American GFR(CKD) 53 (>60 ml/min/1.73 sqM); Potassium 4.6 mmol/L (3.5-5.1); Sodium 139 mmol/L (137-145); Total Bilirubin 0.2 mg/dL (0.2-1.3); Total Protein 6.9 g/dL (6.3-8.2)
--- NOTE | 2022-08-22 12:03 | P.CRDCN ---
History of Present Illness History of present illness: This is a 67 year old female with a past medical history of palpitations correlated with PVCs, pulmonary hypertension, possible sleep apnea, hypertension, dyslipidemia, mild to moderate mitral regurgitation, recent diagnosis of a right renal mass concerning for recurrent cell carcinoma. She follows with Dr. Page. We are consulted for syncope. Patient presents to the ER with complaints of a syncopal episode yesterday. She states that she got a call yesterday from her PCP about a new diagnosis of renal mass. At work, felt "warm" and "whoozy". She was not feeling well. She had some shortness of breath. She went to the back room sat down took some deep breaths and apparently passed out for about 1 minute. She denies any symptoms of chest pain, palpitations, dizziness, nausea, vomiting. No reported seizure-like activity, urine/bowel incontinence. No other symptoms reported. She came to the ER for further evaluation. She has never passed out before, but thought it may be related to the news she heard of the renal mass. Overall she is feeling well, no symptoms of chest pain or shortness of breath and lightheadedness or dizziness. She has no history of CAD, NH, Stroke or diabetes. DIAGNOSTICS * EKG reveals sinus rhythm, heart rate 70, nonspecific T-wave abnormalities. * Recent echocardiogram in the office 07/20/2022 revealed EF 55%, grade 2 diastolic dysfunction, mild mitral regurgitation, mild tricuspid regurgitation, mildly increased pulmonary artery systolic pressure RVSP 39 mm * Telemetry tracings indicate sinus rhythm with heart rates in the 6070s * CTA of the chest suboptimal study without central acute pulmonary embolism * Laboratory reviewed troponin negative 3, WBC 9.9, hemoglobin 10.9, platelets 472, sodium 139, potassium 4.6, BUN 17, serum creatinine 1.1 * Current home medications include enalapril 10 mg twice a day, Synthroid, simvastatin 20 mg nightly REVIEW OF SYSTEMS At the time of my exam: CONSTITUTIONAL: Denies fever or chills. CARDIOVASCULAR: Denies chest pain, shortness of breath, orthopnea, PND or palpitations. RESPIRATORY: Denies cough. GASTROINTESTINAL: Denies abdominal pain, diarrhea, constipation, nausea or vomiting. MUSCULOSKELETAL: Denies myalgias. NEUROLOGIC: Denies numbness, tingling, headacbe or weakness. ENDOCRINE: Denies fatigue, weight change, polydipsia or polyurina. GENITOURINARY: Denies burning, hematuria or urgency with micturation. HEMATOLOGIC: Denies history of anemia or bleeding. PHYSICAL EXAMINATION Blood pressure 121/63, heart 73, afebrile, oxygen saturations 97% on room air Orthostatics negative CONSTITUTIONAL: No apparent distress. HEENT: Head is normocephalic. Pupils are equal, round. Sclerae anicteric. Mucous membranes of the mouth are moist. No JVD. No carotid bruit. CHEST EXAMINATION: Lungs are clear to auscultation. No chest wall tenderness is noted on palpation or with deep breathing. HEART EXAMINATION: Regular rate and rhythm. S1, S2 heard. Systolic murmur at apex, no gallops or rub. ABDOMEN: Soft, nontender. Positive bowel sounds. EXTREMITIES: 2+ peripheral pulses, no lower extremity edema and no calf tenderness. NEUROLOGIC EXAMINATION: Patient is awake, alert and oriented x3. ASSESSMENT Syncopal episode, likely vasovagal Recent diagnosis of right renal mass History of palpitations, correlated with PVCs Hypertension Dyslipidemia Mild mitral regurgitation PLAN From cardiology perspective, no further inpatient workup indicated at this time. Patient's syncopal episode likely vasovagal, acute coronary syndrome has been ruled out, maintaining sinus rhythm no arrythmia noted. Orthostatics negative. Urology following secondary to diagnosis of renal mass Rest of management per primary Recommend follow up outpatient Please reach out with any further questions or concerns Nurse practitioner note has been reviewed by physician. Signing provider agrees with the documented findings, assessment, and plan of care. Past Medical History Past Medical History: Hyperlipidemia, Hypertension, Thyroid Disorder History of Any Multi-Drug Resistant Organisms: None Reported Past Surgical History: No Surgical Hx Reported Past Psychological History: No Psychological Hx Reported Smoking Status: Current every day smoker Past Alcohol Use History: None Reported Past Drug Use History: None Reported - Past Family History Mother Family Medical History: Hypertension Medications and Allergies Home Medications Medication Instructions Recorded Confirmed Type Enalapril [Vasotec] 10 mg PO BID 08/21/22 08/21/22 History Levothyroxine Sodium 25 mcg PO DAILY 08/21/22 08/21/22 History Simvastatin [Zocor] 20 mg PO HS 08/21/22 08/21/22 History Allergies Allergy/AdvReac Type Severity Reaction Status Date / Time acetaminophen Allergy Rash/Hives Verified 08/21/22 15:50 Physical Exam Vitals: Vital Signs Temp Pulse Pulse Resp BP BP BP 08/22/22 05:00 140/78 08/22/22 03:15 97.9 F 80 18 117/66 08/21/22 21:25 85 18 118/70 08/21/22 18:00 98.9 F 75 18 148/95 08/21/22 16:00 93 18 147/70 08/21/22 11:47 98 F 87 16 145/72 BP BP Pulse Ox 08/22/22 05:00 134/63 119/68 08/22/22 03:15 97 08/21/22 21:25 99 08/21/22 18:00 96 08/21/22 16:00 97 08/21/22 11:47 99 Intake and Output 08/21/22 08/22/22 08/22/22 22:59 06:59 14:59 Other: Voiding Method Toilet # Voids 1 Weight 107.501 kg Results 08/22/22 09:58 08/22/22 09:58 Cardiac Enzymes 08/21/22 08/21/22 08/21/22 Range/Units 11:56 11:56 20:16 AST 24 (14-36) U/L Troponin I <0.012 <0.012 (0.000-0.034) ng/mL 08/21/22 Range/Units 23:55 AST (14-36) U/L Troponin I <0.012 (0.000-0.034) ng/mL Coagulation 08/21/22 Range/Units 11:56 PT 11.8 (9.0-12.0) sec APTT 26.6 (22.0-30.0) sec CBC 08/21/22 Range/Units 11:56 WBC 14.9 H (3.8-10.6) k/uL RBC 4.04 (3.80-5.40) m/uL Hgb 11.1 L (11.4-16.0) gm/dL Hct 34.2 (34.0-46.0) % Plt Count 437 (150-450) k/uL Comprehensive Metabolic Panel 08/21/22 Range/Units 11:56 Sodium 139 (137-145) mmol/L Potassium 4.2 (3.5-5.1) mmol/L Chloride 102 (98-107) mmol/L Carbon Dioxide 27 (22-30) mmol/L BUN 17 (7-17) mg/dL Creatinine 1.31 H (0.52-1.04) mg/dL Glucose 141 H (74-99) mg/dL Calcium 8.6 (8.4-10.2) mg/dL AST 24 (14-36) U/L ALT 22 (4-34) U/L Alkaline Phosphatase 118 (38-126) U/L Total Protein 6.9 (6.3-8.2) g/dL Albumin 3.8 (3.5-5.0) g/dL Current Medications Generic Name Dose Route Start Last Admin Trade Name Freq PRN Reason Stop Dose Admin Atorvastatin Calcium 10 mg 08/21/22 21:00 08/21/22 21:26 Atorvastatin 10 Mg Tab PO 10 mg HS CECE Administration Heparin Sodium (Porcine) 5,000 unit 08/22/22 08:00 Heparin Sodium,Porcine/Pf 5,000 Unit/0.5 Ml Syringe SQ Q8HR CECE Sodium Chloride 1,000 mls @ 75 mls/hr 08/21/22 19:30 08/21/22 21:26 Saline 0.9% IV 75 mls/hr .[id number] CECE Administration Ceftriaxone Sodium 2 gm/ 50 mls @ 100 mls/hr 08/22/22 03:00 08/22/22 03:40 Sodium Chloride IVPB 100 mls/hr Q24HR CECE Administration Protocol Levothyroxine Sodium 25 mcg 08/22/22 06:30 08/22/22 06:45 Levothyroxine 25 Mcg Tab PO 25 mcg 0630 CECE Administration Lisinopril 20 mg 08/21/22 21:00 08/21/22 21:26 Lisinopril 20 Mg Tab PO 20 mg BID CECE Administration Naloxone HCl 0.2 mg 08/21/22 19:16 Naloxone 0.4 Mg/Ml 1 Ml Vial IV Q2M PRN Opioid Reversal Intake and Output 08/21/22 08/22/22 08/22/22 22:59 06:59 14:59 Other: Voiding Method Toilet # Voids 1 Weight 107.501 kg 08/21/22 11:56 08/21/22 11:56
[2022-08-22 15:48] VITALS: RESP 18
--- NOTE | 2022-08-22 19:26 | MR ---
EXAMINATION TYPE: MR abdomen wo/w con DATE OF EXAM: 08/22/2022 3:06 PM INDICATION: Patient age:Female; 67 years old; Reason for study: right renal mass; COMPARISON: CT abdomen pelvis 08/16/2022. TECHNIQUE: Multiplanar multi-sequence imaging was performed without contrast. Post contrast imaging was performed. IV Contrast: 10 cc Gadavist FINDINGS: LOWER CHEST: No gross irregularity. ABDOMEN Liver: Unremarkable. Gallbladder and Bile ducts: Multiple low signal cholelithiasis are demonstrated. Pancreas: Unremarkable. Spleen: Unremarkable. Adrenal glands: Unremarkable. Kidneys: Heterogenous signal right renal mass as seen on prior CT imaging measuring 11.2 x 9.2 x 11.5 cm. Postcontrast imaging demonstrates predominantly peripheral enhancement. An area near the right a drenal gland is felt to be separate from the dominant mass and could be an extension of the large erwin or versus a lymph node measuring up to 5.1 x 4.5 cm. No convincing hydronephrosis there is mass effec t upon the renal vein and inferior vena cava medially. No definitive invasion into the basilar near t he inferior vena cava. The left kidney demonstrates nonenhancing renal cysts. No evidence of hydronephrosis. Stomach and Bowel: Unremarkable as visualized. Peritoneum: No evidence of pneumoperitoneum, free fluid, or adenopathy. Vasculature: Unremarkable. No aortic aneurysm. Abdominal wall: Unremarkable. Musculoskeletal: The osseous structures appear intact. No suspicious osseous lesions. IMPRESSION: 1. Right renal mass most consistent with renal cell carcinoma. Urological consultation recommended. 2. A more superior round lesion is seen near the right adrenal gland unclear whether this is a separ ate mass such as a metastatic lymph node or extension of dominant mass.
[2022-08-22] MEDS: ATORVASTATIN 10 MG TAB PO SCH (20:08)
[2022-08-23 02:42] VITALS: TEMP 98.2
[2022-08-23] MEDS: SODIUM CHLORIDE 0.9% 1,000 ML IV SCH (06:24)
[2022-08-23] MEDS: LEVOTHYROXINE 25 MCG TAB PO SCH (06:24)
[2022-08-23 07:21] VITALS: BP 123/68; PULSE 72
[2022-08-23] MEDS ORDERED: ENOXAPARIN 40 MG/0.4 ML SYRINGE SQ SCH (09:00)
--- NOTE | 2022-08-23 09:12 | P.PN ---
Subjective Progress Note Date: 08/23/22 Principal diagnosis: Right renal mass The patient is a 67-year-old female with a PMH of hypertension, hyperlipidemia, and hypothyroidism. She presented to the emergency room on 08/21/22 after syncope. The patient reports that over the past few weeks, she has been exper iencing a vague diffuse abdominal discomfort, rated as mild, for which she was following up with her PCP. She underwent a CT abdomen and pelvis on 08/16, which revealed a right renal mass measuring up to at least 10.7 cm extending beyond the renal margin, highly concerning for renal cell carcinoma. The patient states that she developed lightheadedness, not positional, for which she attempted to sit down and take some deep breaths, for roughly 30 minutes. She denied experiencing palpitations or shortness of breath. States that she subsequently lost consciousness, where a coworker saw her fall to the ground, hitting the right hip and right shoulder. The patient reportedly regained consciousness within 1-2 minutes with no reported seizure-like activity, urinary incontinence, or tongue biting. The patient had no post ictal confusion but did appear to be pale by her colleagues. The patient denied ever experiencing such symptoms in the past. She also reported right lateral chest wall pain, sharp in nature, nonpleuritic. The patient denies a history of anxiety or panic disorder. In the emergency room, an EKG revealed sinus rhythm at 70 bpm with LVH and T-wave inversion in lead 3. Chest CTA revealed a suboptimal study without central acute PE with mild cardiomegaly with findings consistent with mild CHF versus poor inspiration. Laboratory evaluation was remarkable for leukocytosis of 14.9, d-dimer 10.63, creatinine 1.31, and troponin less than 0.012, with UA consistent with UTI. 08/22 Mass is locally advanced area on abdominal exam it is fixed. Unable to v isualize the adrenal gland on the right side or the right renal vein. Most likely the mass is arising from the right kidney, but possibly also could be arising from the right adrenal gland. No evidence of metastatic disease on CT abdomen and CT chest. Had a prolonged discussion with the patient about this finding, discussed this is highly concerning for renal cell carcinoma. But she would require further images to confirm Objective - Vital Signs Vital signs: Vital Signs Temp 98.2 F 08/23/22 07:20 Pulse 72 08/23/22 07:20 Resp 18 08/23/22 07:20 BP 123/68 08/23/22 07:20 Pulse Ox 97 08/23/22 07:20 FiO2 Intake & Output 08/22/22 08/23/22 08/23/22 18:59 06:59 18:59 Intake Total 0 Balance 0 Intake: Oral 0 Other: Voiding Method Toilet Toilet # Voids 2 - Labs CBC & Chem 7: 08/22/22 09:58 08/22/22 09:58 Labs: Abnormal Lab Results - Last 24 Hours (Table) 08/22/22 08/22/22 Range/Units 09:58 09:58 Hgb 10.9 L (11.4-16.0) gm/dL Plt Count 472 H (150-450) k/uL Neutrophils # 8.3 H (1.3-7.7) k/uL Lymphocytes # 0.9 L (1.0-4.8) k/uL Creatinine 1.10 H (0.52-1.04) mg/dL Glucose 103 H (74-99) mg/dL Microbiology - Last 24 Hours (Table) 08/21/22 16:20 Urine Culture - Final Urine,Voided Assessment and Plan Assessment: The patient reports a history of UTI's. No history of kidney stones or previous abdominal/pelvic surgery. No family history of bladder or kidney cancer. She has had a loss of appetite and a recent 13 lb weight loss. She describes her abdomen as feeling tight and swollen, especially at night. She has RUQ tenderness and a hard mass can be palpated. (1) Renal mass Status: Acute Code(s): N28.89 - OTHER SPECIFIED DISORDERS OF KIDNEY AND URETER SNOMED Code(s): 244532973 Plan: - MRI abdomen with contrast consistent with renal cell carcinoma with mets to adrenal gland vs. lymph node - Due to complexity of mass, we will refer patient to tertiary facility - Final urine culture - no evidence of UTI, Rocephin discontinued Impression and plan of care have been directed as dictated by the signing physician. Norma Abarca nurse practitioner acting as scribe for signing physician. Norma Abarca [facility] Palliative Care/Urology [facility] [id number] Email: [email or web address] I personally performed and participated in the history, physical, the decision making, I agree with the assessment and plan of REGIONAL OFFICE COORDINATOR Time with Patient: Less than 30
[2022-08-23] MEDS: lisinopriL 20 MG TAB PO SCH (10:16)
--- NOTE | 2022-08-23 12:50 | P.DS ---
Providers Date of admission: 08/21/22 19:16 Expected date of discharge: 08/23/22 Attending physician: Jose Cardona MD Consults: 08/21/22 19:16 Consult Physician Routine Consulting Provider: Stephon Milan Consult Reason/Comments: renal mass Do you want consulting provider notified?: Yes [facility] Course: Discharge Diagnosis: Syncope, likely vasovagal Elevated d-dimer Right renal mass, possible renal cell carcinoma Hypertension Hypothyroidism Dyslipidemia Hospital Course: 67-year-old female with history of hypertension, hyperlipidemia, hypothyroidism, recent diagnosis of right renal mass concerning for renal cell carcinoma presented with a syncopal episode. Given prodromal symptoms, possible vasovagal syncope. Cardiology consulted. Troponin negative 3. Negative orthostatics. Patient had a recent echo in cardiology office. Cardiology recommended no further work up. CTA chest showed no central acute pulmonary embolism, mild cardiomegaly, possible CHF exacerbation versus poor inspiration. Urology consulted, MRI abdomen with contrast showed right renal mass most consistent with renal cell carcinoma. A superior round lesion is also seen near the right adrenal gland. Patient to follow-up for possible nephrectomy at the large tertiary center. Patient seen and examined at bedside. Vital signs reviewed and stable. General: nontoxic, no distress, appears at stated age Derm: warm, dry Head: atraumatic, normocephalic, symmetric Eyes: EOMI, no lid lag, anicteric sclera Mouth: no lip lesion, mucus membranes moist Cardiovascular: S1S2 reg, no murmur Lungs: CTA bilateral, no rhonchi, no rales , no accessory muscle use Abdominal: soft, nontender to palpation, no guarding, no appreciable orga nomegaly Ext: no gross muscle atrophy, no edema, no contractures Neuro: CN II-XI grossly intact, no focal neuro deficits Psych: Alert, oriented, appropriate affect A total of 37 minutes of time were spent preparing this complex discharge summary. Patient was discharged on 08/23/22 at 9:32. Patient Condition at Discharge: Stable Plan - Discharge Summary Discharge Rx Participant: No New Discharge Prescriptions: Continue Simvastatin [Zocor] 20 mg PO HS Levothyroxine Sodium 25 mcg PO DAILY Enalapril [Vasotec] 10 mg PO BID Discharge Medication List Enalapril [Vasotec] 10 mg PO BID 08/21/22 [History] Levothyroxine Sodium 25 mcg PO DAILY 08/21/22 [History] Simvastatin [Zocor] 20 mg PO HS 08/21/22 [History] Follow up Appointment(s)/Referral(s): Page Stahl MD [Primary Care Provider] - 08/24/22 1:30 pm Patient Instructions/Handouts: Syncope (GEN) Activity/Diet/Wound Care/Special Instructions: Please see your PCP as soon as possible to get referral for [facility].
== END 2022-08-23 10:58 ==
LOC: EC 11:44 → 6NMEDSUR 19:16 → 3SCARD 08-22 02:16 → 4SSUR 08-22 23:22
PROVIDERS: ADMIT Family Medicine; ATTEND Family Medicine
DX: R55 Syncope and collapse (principal); R79.89 Other specified abnormal findings of blood chemistry; N28.89 Other specified disorders of kidney and ureter; R07.89 Other chest pain; I10 Essential (primary) hypertension; E78.5 Hyperlipidemia, unspecified; I27.20 Pulmonary hypertension, unspecified; G47.30 Sleep apnea, unspecified; I34.0 Nonrheumatic mitral (valve) insufficiency; E03.9 Hypothyroidism, unspecified; N39.0 Urinary tract infection, site not specified; F17.200 Nicotine dependence, unspecified, uncomplicated; Z87.440 Personal history of urinary (tract) infections; Z79.890 Hormone replacement therapy; Z79.899 Other long term (current) drug therapy; Z88.6 Allergy status to analgesic agent; Z82.49 Family history of ischemic heart disease and other diseases of the circulatory system
CPT/HCPCS: 96361; 96365; 96366; 96372 ×2; 99285; 36415; 93005; 83835; 85379; 80053 ×2; 82533; 82088; 84244; 83735; 84484; 85025 ×2; 85610; 85730; 81001; 83970; 87086; 71275; 74183; G0378 ×4; J0696; J1650; A9585; Q9967; J1644

== ENCOUNTER 2022-10-24 12:56 | Emergency (ER) | payer MEDICARE, OTHER ==
[2022-10-24] MEDS ORDERED: SODIUM CHLORIDE 0.9% 1,000 ML IV STA (13:18)
[2022-10-24] MEDS ORDERED: PANTOPRAZOLE 40 MG/10 ML VIAL IVP STA (13:18)
--- NOTE | 2022-10-24 13:24 | ED ---
Abdominal Pain HPI - General Source: patient, RN notes reviewed, old records reviewed Mode of arrival: ambulatory Limitations: no limitations - History of Present Illness MD Complaint: abdominal pain (n/v) -: week(s) (1) Location: diffuse Severity scale (1-10): 3 Quality: aching Consistency: intermittent Context: recent surgery/procedure Associated Symptoms: nausea, vomiting <Pool Alonso - Last Filed: 10/24/22 17:18> <Onesimo Aburto - Last Filed: 10/24/22 19:56> - General Chief Complaint: Abdominal Pain Stated Complaint: vomiting Time Seen by Provider: 10/24/22 13:04 - History of Present Illness Initial Comments: Nontoxic-appearing 67-year-old female presents ambulatory with complaints of ab dominal pain with nausea vomiting and loss of appetite for one week. Patient states that she underwent surgery at [facility] in [place] on 09/28/[address] Dawn after diagnosed with renal cell carcinoma with metastasis. She states that they aborted surgery after they found a tumor on her duodenum they could not remove. She has had increased nausea with vomiting. Described once emesis as dark in color and is concerned for bleeding. She was referred to oncology at [facility] but has not gotten an appointment yet. She is hoping she can see someone from oncology here today. (Pool Alonso) - Related Data Home Medications Medication Instructions Recorded Confirmed Enalapril [Vasotec] 10 mg PO BID 08/21/22 10/24/22 Levothyroxine Sodium 25 mcg PO DAILY 08/21/22 10/24/22 Simvastatin [Zocor] 20 mg PO HS 08/21/22 10/24/22 Cholecalciferol [Vitamin D3 (25 25 mcg PO DAILY 10/24/22 10/24/22 Mcg = 1000 Iu)] Docusate [Colace] 100 mg PO DAILY 10/24/22 10/24/22 Multivitamins, Thera [Multivitamin 1 tab PO DAILY 10/24/22 10/24/22 (formulary)] Allergies Allergy/AdvReac Type Severity Reaction Status Date / Time acetaminophen Allergy Rash/Hives Verified 10/24/22 14:15 Review of Systems ROS Other: All systems not noted in ROS Statement are negative. <Pool Alonso - Last Filed: 10/24/22 17:18> ROS Other: All systems not noted in ROS Statement are negative. <Onesimo Aburto - Last Filed: 10/24/22 19:56> ROS Statement: Those systems with pertinent positive or pertinent negative responses have been documented in the HPI. Past Medical History Past Medical History: Hyperlipidemia, Hypertension, Thyroid Disorder History of Any Multi-Drug Resistant Organisms: None Reported Past Surgical History: No Surgical Hx Reported Additional Past Surgical History / Comment(s): laproscopy Past Psychological History: No Psychological Hx Reported Smoking Status: Never smoker Past Alcohol Use History: None Reported Past Drug Use History: None Reported - Past Family History Mother Family Medical History: Hypertension <Pool Alonso - Last Filed: 10/24/22 17:18> General Exam Limitations: no limitations General appearance: alert, in no apparent distress Head exam: Present: atraumatic Eye exam: Absent: scleral icterus, conjunctival injection, periorbital swelling Neck exam: Absent: meningismus Respiratory exam: Present: normal lung sounds bilaterally. Absent: respiratory distress, accessory muscle use Cardiovascular Exam: Present: tachycardia GI/Abdominal exam: Present: soft, tenderness (surgical site horizontal across abdomen, steri-strips intact , no erythema or drainage) Neurological exam: Present: alert, oriented X3 Psychiatric exam: Present: normal affect, normal mood Skin exam: Present: warm, dry, normal color. Absent: cyanosis, diaphoretic, petechiae <Pool Alonso - Last Filed: 10/24/22 17:18> Course - Reevaluation(s) Time: 16:14 <Pool Alonso - Last Filed: 10/24/22 17:18> Vital Signs 10/24/22 10/24/22 10/24/22 12:57 15:41 18:55 Temperature 98 F Pulse Rate 118 H 87 94 Respiratory 20 16 18 Rate Blood Pressure 141/102 126/68 111/75 O2 Sat by Pulse 97 98 97 Oximetry - Reevaluation(s) Reevaluation #1: 10/24/22 16:[address] Garcia at [facility] accepted admission and transfer. (Pool Alonso) Medical Decision Making - Lab Data Result diagrams: 10/24/22 13:28 10/24/22 13:28 <Pool Alonso - Last Filed: 10/24/22 17:18> - Lab Data Result diagrams: 10/24/22 13:28 10/24/22 13:28 <Onesimo Aburto - Last Filed: 10/24/22 19:56> - Medical Decision Making CT abdomen shows interval enlargement of right kidney consistent with known renal carcinoma. Cholelithiasis with mild dilatation of the common hepatic duct which may be related to an inpatient stricture from renal mass with choledocholithiasis not excluded. No intrahepatic biliary ductal dilatation. Consider further evaluation with MRCP as clinically indicated. Fibroid changes of the uterus. Fatty infiltration of the pancreas. Labs show lipase of 2299 amylase at 282. No evidence of lactic acidosis. Labs obtained from [facility]. Patient will be transferred to [facility] where her surgery was performed on September 28 and discharged on October 01. She is agreeable to this plan of care. Case discussed with Dr. Aburto. Was pt. sent in by a medical professional or institution? @ -No Did you speak to anyone other than the patient for history? @ -No Did you review nursing and triage notes? @ -Yes I agree Were old charts reviewed? @ -Outside hospital records Differential Diagnosis? @ -Differential Abdominal Pain Women: Appendicitis, Cholecystitis, diverticulosis, ischemic bowel, pancreatitis, hepatitis, UTI, gastroenteritis, AAA, incarcerated hernia, bowel obstruction, constipation, inflammatory bowel, hepatitis, peptic ulcer disease, splenic infarction, perforated viscus, vulvitis, ovarian torsion, PID, kidney stone, placenta abruption, this is not meant to be an all-inclusive list CT interpreted by me (1pt min.)? @ -No What testing was considered but not performed? (CT, X-rays, U/S, labs)? Why? @None What meds were considered but not given? Why? @ -None Did you discuss the management of the patient with other professionals? @ -I did discuss this case with Dr. Oates regarding possible medical management until a bed available at [facility] and she declined. Did you reconcile home meds? @ -No Was smoking cessation discussed for >3mins.? @ -No Was critical care preformed (if so, how long)? @ -No Were there social determinants of health that impacted care today? How? (Homelessness, low income, unemployed, alcoholism, drug addiction, transportation, low edu. Level, literacy, decrease access to med. care, snf, rehab)? @ -None Was there de-escalation of care discussed even if they declined? (Discuss DNR or withdrawal of care, Hospice)? @ -No What co-morbidities impacted this encounter? (DM, HTN, Smoking, COPD, CAD, Cancer, CVA, Hep., AIDS, mental health diagnosis, sleep apnea, morbid obesity)? @ -Hypertension, renal cell carcinoma with metastasis Was patient admitted / discharged? @ -Admitted for transfer Undiagnosed new problem with uncertain prognosis? @ -[none] Drug Therapy requiring intensive monitoring for toxicity (Heparin, Nitro, Insulin, Cardizem)? @ -No Were any procedures done? @ -No Diagnosis/symptom? @ -Renal cell carcinoma with metastasis, pancreatitis Acute, or Chronic, or Acute on Chronic? @ -Acute Uncomplicated (without systemic symptoms) or Complicated (systemic symptoms)? @ -[default] Side effects of treatment? @ -[none] Exacerbation, Progression, or Severe Exacerbation] @ -[no] Poses a threat to life or bodily function? @ -[no] (Pool Alonso) The patient was seen and examined. Case is discussed with the physician assistant art director as well. Please see their documentation for additional details. The patient apparently does have a history of renal cancer. This has metastasized throughout her abdominal region. She was seen at [facility] and had surgery recently. They apparently were going to do a nephrectomy but found additional significant cancer and did not do a nephrectomy. She apparently may need a Whipple's type of procedure in the future. She has had continued pain a nd nausea and vomiting. She has not ate anything in the last 3 days. She is nauseated with fluid intake. She has mild diffuse abdominal pain as well. Her workup in the emergency department does show an elevation of the lipase consistent with pancreatitis. Her computed tomography scan of the abdomen and pelvis does show dilation of her common bile duct which could potentially be related to mass versus choledocholithiasis. It is felt as though she would benefit from transfer to [facility] for further evaluation and treatment. We do not currently have any GI coverage. She likely will require ERCP or similar. The patient is agreeable to this plan. We do attempt to send patient to [facility] and they accept her for transfer but apparently inform us that she has never 31 on the list to get transferred. In the meantime, we attempted to admit the patient to the hospital. Case is discussed with Dr. Oates from internal medicine and she refuses to admit the patient until patient is able to be transferred to [facility]. Upon discussion with the physician at [facility], they feel as though she potentially may get a bed this evening. It is felt as though it would be difficult to send to another hospital as patient has significant morbidity and also is a complex gastroenterology type of case that will require further expertise. She will be watched in the emergency department until we are able to transfer to [facility]. She is somewhat improved on recheck but still having additional pain and nausea and additional medications are ordered. She'll be kept in an nothing by mouth status. (Onesimo Aburto) - Lab Data Lab Results 10/24/22 10/24/22 10/24/22 Range/Units 13:28 13:28 13:28 WBC 12.1 H (3.8-10.6) k/uL RBC 3.97 (3.80-5.40) m/uL Hgb 10.5 L (11.4-16.0) gm/dL Hct 33.1 L (34.0-46.0) % MCV 83.3 (80.0-100.0) fL MCH 26.4 (25.0-35.0) pg MCHC 31.7 (31.0-37.0) g/dL RDW 14.0 (11.5-15.5) % Plt Count 495 H (150-450) k/uL MPV 8.0 Neutrophils % 83 % Lymphocytes % 9 % Monocytes % 4 % Eosinophils % 3 % Basophils % 0 % Neutrophils # 10.0 H (1.3-7.7) k/uL Lymphocytes # 1.1 (1.0-4.8) k/uL Monocytes # 0.5 (0-1.0) k/uL Eosinophils # 0.3 (0-0.7) k/uL Basophils # 0.1 (0-0.2) k/uL Hypochromasia Moderate PT 12.7 H (9.0-12.0) sec INR 1.2 H (<1.2) APTT 26.3 (22.0-30.0) sec Sodium 142 (137-145) mmol/L Potassium 3.8 (3.5-5.1) mmol/L Chloride 100 (98-107) mmol/L Carbon Dioxide 28 (22-30) mmol/L Anion Gap 14 mmol/L BUN 23 H (7-17) mg/dL Creatinine 0.85 (0.52-1.04) mg/dL Est GFR (CKD-EPI)AfAm 83 (>60 ml/min/1.73 sqM) Est GFR (CKD-EPI)NonAf 72 (>60 ml/min/1.73 sqM) Glucose 113 H (74-99) mg/dL Plasma Lactic Acid Devon (0.7-2.0) mmol/L Calcium 9.0 (8.4-10.2) mg/dL Total Bilirubin 0.6 (0.2-1.3) mg/dL AST 20 (14-36) U/L ALT 18 (4-34) U/L Alkaline Phosphatase 151 H (38-126) U/L Total Protein 7.1 (6.3-8.2) g/dL Albumin 3.6 (3.5-5.0) g/dL Amylase 282 H (30-110) U/L Lipase 2299 H (23-300) U/L Coronavirus (PCR) (Not Detectd) 10/24/22 10/24/22 Range/Units 13:28 17:00 WBC (3.8-10.6) k/uL RBC (3.80-5.40) m/uL Hgb (11.4-16.0) gm/dL Hct (34.0-46.0) % MCV (80.0-100.0) fL MCH (25.0-35.0) pg MCHC (31.0-37.0) g/dL RDW (11.5-15.5) % Plt Count (150-450) k/uL MPV Neutrophils % % Lymphocytes % % Monocytes % % Eosinophils % % Basophils % % Neutrophils # (1.3-7.7) k/uL Lymphocytes # (1.0-4.8) k/uL Monocytes # (0-1.0) k/uL Eosinophils # (0-0.7) k/uL Basophils # (0-0.2) k/uL Hypochromasia PT (9.0-12.0) sec INR (<1.2) APTT (22.0-30.0) sec Sodium (137-145) mmol/L Potassium (3.5-5.1) mmol/L Chloride (98-107) mmol/L Carbon Dioxide (22-30) mmol/L Anion Gap mmol/L BUN (7-17) mg/dL Creatinine (0.52-1.04) mg/dL Est GFR (CKD-EPI)AfAm (>60 ml/min/1.73 sqM) Est GFR (CKD-EPI)NonAf (>60 ml/min/1.73 sqM) Glucose (74-99) mg/dL Plasma Lactic Acid Devon 1.2 (0.7-2.0) mmol/L Calcium (8.4-10.2) mg/dL Total Bilirubin (0.2-1.3) mg/dL AST (14-36) U/L ALT (4-34) U/L Alkaline Phosphatase (38-126) U/L Total Protein (6.3-8.2) g/dL Albumin (3.5-5.0) g/dL Amylase (30-110) U/L Lipase (23-300) U/L Coronavirus (PCR) Not Detected (Not Detectd) Disposition Decision Date: 10/24/22 Decision Time: 15:01 - Out of Hospital Transfer - Req. Specs Out of Hospital Transfer - Requested Specifics: Other Emergency Center ([facility]) <Pool Alonso - Last Filed: 10/24/22 17:18> <Onesimo Aburto - Last Filed: 10/24/22 19:56> Clinical Impression: Pancreatitis, Metastatic renal cell carcinoma to intra-abdominal site Disposition: OTHER INSTITUTION NOT DEFINED Referrals: Page Stahl MD [Primary Care Provider] - 1-2 days
[2022-10-24 13:55] LABS: Basophils # (A) 0.1 k/uL (0-0.2); Basophils % (A) 0 %; Eosinophils # (A) 0.3 k/uL (0-0.7); Eosinophils % (A) 3 %; HCT 33.1 % (34.0-46.0); HGB 10.5 gm/dL (11.4-16.0); Hypochromasia Moderate; Lymphocytes # (A) 1.1 k/uL (1.0-4.8); Lymphocytes % (A) 9 %; MCH 26.4 pg (25.0-35.0); MCHC 31.7 g/dL (31.0-37.0); MCV 83.3 fL (80.0-100.0); Monocytes # (A) 0.5 k/uL (0-1.0); Monocytes % (A) 4 %; Neutrophils % (A) 83 %; Platelet Count 495 k/uL (150-450); RBC 3.97 m/uL (3.80-5.40); WBC 12.1 k/uL (3.8-10.6)
[2022-10-24 14:03] LABS: INR 1.2 (<1.2); Partial Thromboplastin Time 26.3 sec (22.0-30.0); Prothrombin Time 12.7 sec (9.0-12.0)
[2022-10-24 14:17] LABS: Albumin 3.6 g/dL (3.5-5.0); Potassium 3.8 mmol/L (3.5-5.1); Total Bilirubin 0.6 mg/dL (0.2-1.3); Total Protein 7.1 g/dL (6.3-8.2)
--- NOTE | 2022-10-24 14:34 | CT ---
EXAMINATION TYPE: CT abdomen pelvis wo con CT DLP: 1036.2 mGycm, Automated exposure control for dose reduction was used. DATE OF EXAM: 10/24/2022 1:59 PM COMPARISON: MR abdomen 08/22/2022, CT abdomen and pelvis 08/16/2022. CLINICAL INDICATION:Female, 67 years old with history of abdominal pain hx renal carcinoma with mets; vomiting TECHNIQUE: Standard CT of the abdomen and pelvis without IV or oral contrast. Lack of IV or oral co ntrast limits evaluation of solid and hollow organ viscera. Coronal and sagittal reformats were perfo rmed. FINDINGS: LOWER CHEST: The lungs are clear. Myocardial megaly. ABDOMEN LIVER: Loss of fat plane with the renal mass along its inferior aspect. No focal lesion within the li mitations of a noncontrast exam. GALLBLADDER AND BILE DUCTS: Layering increased densities within the lumen consistent with gallstones are present. Mildly prominent common bile duct measuring up to 1.2 cm, previously 8 mm. No intrahepat ic biliary duct dilatation. PANCREAS: Fatty infiltration. SPLEEN: Unremarkable noncontrast appearance ADRENAL GLANDS: Unremarkable noncontrast appearance. KIDNEYS AND URETERS: Unremarkable left kidney without evidence of hydronephrosis or renal calculi. In terval enlargement of the right kidney with heterogenous attenuation measuring 16.6 x 10.6 x 14.0 cm in TV, AP, CC dimensions. There is a suprarenal component identified abutting the right psoas muscle. There is loss of fat plane with the IVC and right iliopsoas muscle. Show loss of fat plane with the gallbladder and proximal duodenum/gastric antrum. There is minimal surrounding fat stranding. PELVIS BLADDER: Unremarkable REPRODUCTIVE: Lobulated enlarged uterus with uterine slightly hyperdense mass measuring up to 4.6 cm to be a fibroid. Dystrophic else occasions are noted. ABDOMEN & PELVIS STOMACH AND BOWEL: Mildly distended fluid-filled stomach. Loss of fat plane with the proximal duodenu m from the renal mass. No evidence of bowel obstruction. PERITONEUM: No evidence of pneumoperitoneum or free fluid. VASCULATURE: Mild atherosclerotic calcifications are present throughout the abdominal aorta and its b ranches. No evidence of aortic aneurysm. MUSCULOSKELETAL: No acute osseous abnormalities. Mild multilevel degenerative disc disease. No aggres sive osseous lesions. LYMPH NODES: No gross evidence for lymphadenopathy. SOFT TISSUE/ABDOMINAL WALL: Fatty changes and scarring within the anterior abdominal wall likely from prior surgical intervention. IMPRESSION: Evaluation is limited due to lack of IV contrast. 1. Interval enlargement of heterogenous right kidney consistent with known renal carcinoma. There is loss of fat plane with surrounding structures as described above. 2. Cholelithiasis with mild dilatation of the common hepatic duct which may related to invasion/stric ture from renal mass with choledocholithiasis is not excluded. No intrahepatic biliary duct dilatatio n. Consider further evaluation with MRCP as clinically indicated. 3. Fibroid changes of the uterus.
[2022-10-24] MEDS ORDERED: HYDROmorphone 0.5 MG/0.5 ML SYRINGE IVP STA (16:06)
[2022-10-24] MEDS ORDERED: ONDANSETRON 4 MG/2 ML VIAL IVP STA (16:06)
[2022-10-24] MEDS ORDERED: MORPHINE SULFATE 4 MG/ML SYRINGE IVP PRN (16:16)
[2022-10-24] MEDS ORDERED: ONDANSETRON 4 MG/2 ML VIAL IVP PRN (16:16)
[2022-10-24] MEDS: SODIUM CHLORIDE 0.9% 1,000 ML IV SCH (16:27)
[2022-10-25] MEDS: SODIUM CHLORIDE 0.9% 1,000 ML IV SCH ×4 (06:38→23:08)
[2022-10-25] MEDS: MULTIVITAMINS, THERA 1 EACH TAB PO SCH (09:03)
[2022-10-25] MEDS: CHOLECALCIFEROL 25 MCG (1000 IU) TABLET PO SCH (09:04)
[2022-10-25] MEDS: lisinopriL 20 MG TAB PO SCH (09:04)
[2022-10-25] MEDS: DOCUSATE 100 MG CAP PO SCH (09:04)
[2022-10-25 13:22] LABS: Basophils % (A) 0 %; Eosinophils # (A) 0.2 k/uL (0-0.7); Eosinophils % (A) 2 %; HCT 30.3 % (34.0-46.0); HGB 9.5 gm/dL (11.4-16.0); Hypochromasia Slight; Lymphocytes % (A) 10 %; MCH 26.3 pg (25.0-35.0); MCHC 31.5 g/dL (31.0-37.0); MCV 83.5 fL (80.0-100.0); Mean Platelet Volume 8.1; Monocytes # (A) 0.5 k/uL (0-1.0); Monocytes % (A) 5 %; Neutrophils # (A) 8.9 k/uL (1.3-7.7); Neutrophils % (A) 82 %; Platelet Count 418 k/uL (150-450); RBC 3.63 m/uL (3.80-5.40); RDW 14.6 % (11.5-15.5); WBC 10.8 k/uL (3.8-10.6)
[2022-10-25 13:31] LABS: Albumin 3.2 g/dL (3.5-5.0); Calcium 8.5 mg/dL (8.4-10.2); Potassium 4.2 mmol/L (3.5-5.1); Total Bilirubin 0.5 mg/dL (0.2-1.3); Total Protein 6.5 g/dL (6.3-8.2)
[2022-10-26 03:58] LABS: Basophils % (A) 0 %; Eosinophils # (A) 0.3 k/uL (0-0.7); Eosinophils % (A) 4 %; HCT 28.8 % (34.0-46.0); HGB 8.9 gm/dL (11.4-16.0); Hypochromasia Slight; Lymphocytes % (A) 12 %; MCH 25.9 pg (25.0-35.0); MCHC 30.8 g/dL (31.0-37.0); MCV 84.1 fL (80.0-100.0); Mean Platelet Volume 7.8; Monocytes # (A) 0.5 k/uL (0-1.0); Monocytes % (A) 6 %; Neutrophils # (A) 6.6 k/uL (1.3-7.7); Neutrophils % (A) 78 %; Platelet Count 341 k/uL (150-450); RBC 3.42 m/uL (3.80-5.40); RDW 14.2 % (11.5-15.5); WBC 8.6 k/uL (3.8-10.6)
[2022-10-26 04:20] LABS: Albumin 2.8 g/dL (3.5-5.0); Calcium 8.1 mg/dL (8.4-10.2); Potassium 3.7 mmol/L (3.5-5.1); Total Bilirubin 0.6 mg/dL (0.2-1.3); Total Protein 5.8 g/dL (6.3-8.2)
[2022-10-26] MEDS ORDERED: IBUPROFEN 600 MG TAB PO PRN (06:18)
[2022-10-26] MEDS: SODIUM CHLORIDE 0.9% 1,000 ML IV SCH (06:23)
[2022-10-26] MEDS ORDERED: LEVOTHYROXINE 25 MCG TAB PO SCH (06:30)
[2022-10-26] MEDS: MULTIVITAMINS, THERA 1 EACH TAB PO SCH (10:15)
[2022-10-26] MEDS: lisinopriL 20 MG TAB PO SCH (10:15)
[2022-10-26] MEDS: DOCUSATE 100 MG CAP PO SCH (10:15)
[2022-10-26] MEDS: CHOLECALCIFEROL 25 MCG (1000 IU) TABLET PO SCH (10:15)
[2022-10-26 10:55] VITALS: BP 161/79; PULSE 92; RESP 20; TEMP 98
== END 2022-10-26 10:12 | disposition left against medical advice (07) ==
LOC: EC 12:56
DX: C64.9 Malignant neoplasm of unspecified kidney, except renal pelvis (principal); C79.89 Secondary malignant neoplasm of other specified sites; K85.90 Acute pancreatitis without necrosis or infection, unspecified; I10 Essential (primary) hypertension; E07.9 Disorder of thyroid, unspecified; E78.5 Hyperlipidemia, unspecified; Z20.822 Contact with and (suspected) exposure to COVID-19; Z53.29 Procedure and treatment not carried out because of patient's decision for other reasons; Z79.890 Hormone replacement therapy; Z79.899 Other long term (current) drug therapy
CPT/HCPCS: 36415 ×2; 80053 ×2; 82150 ×2; 83605; 83615; 83690 ×2; 85025 ×2; 85610; 85730; 87635; 74176; 99284; 96374; 96375; 96361; J2270; J2405; C9113; J1170

== ENCOUNTER 2022-11-15 17:08 | Inpatient (IN) | payer MEDICARE, OTHER ==
[2022-11-15 17:23] LABS: Glucose,Whole Blood 134 mg/dL (70-110)
[2022-11-15 18:43] LABS: Basophils % (A) 0 %; Eosinophils # (A) 0.2 k/uL (0-0.7); Eosinophils % (A) 1 %; HCT 25.8 % (34.0-46.0); HGB 8.2 gm/dL (11.4-16.0); Lymphocytes # (A) 0.3 k/uL (1.0-4.8); Lymphocytes % (A) 2 %; MCH 26.7 pg (25.0-35.0); MCHC 31.6 g/dL (31.0-37.0); MCV 84.5 fL (80.0-100.0); Mean Platelet Volume 8.2; Monocytes # (A) 0.5 k/uL (0-1.0); Monocytes % (A) 3 %; Neutrophils # (A) 13.5 k/uL (1.3-7.7); Neutrophils % (A) 93 %; Platelet Count 316 k/uL (150-450); RBC 3.05 m/uL (3.80-5.40); RDW 15.7 % (11.5-15.5); WBC 14.6 k/uL (3.8-10.6)
[2022-11-15 18:55] LABS: INR 1.1 (<1.2); Partial Thromboplastin Time 24.8 sec (22.0-30.0); Prothrombin Time 11.1 sec (9.0-12.0)
[2022-11-15 18:56] LABS: ALT 62 U/L (4-34); AST 38 U/L (14-36); African American GFR (CKD) >90 (>60 ml/min/1.73 sqM); Albumin 2.5 g/dL (3.5-5.0); Alkaline Phosphatase 781 U/L (38-126); Anion Gap 7 mmol/L; Blood Urea Nitrogen 30 mg/dL (7-17); Calcium 8.2 mg/dL (8.4-10.2); Carbon Dioxide 23 mmol/L (22-30); Chloride 113 mmol/L (98-107); Glucose 131 mg/dL (74-99); Magnesium 2.3 mg/dL (1.6-2.3); Non-African American GFR(CKD) 81 (>60 ml/min/1.73 sqM); Potassium 4.2 mmol/L (3.5-5.1); Sodium 143 mmol/L (137-145); Total Bilirubin 2.3 mg/dL (0.2-1.3); Total Protein 5.9 g/dL (6.3-8.2)
--- NOTE | 2022-11-15 20:05 | ED ---
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 She was seen in the emergency department on October 24 for vomiting. She was transferred on the [facility]. Patient was supposed to have a nephrectomy however during surgery they found the large wad mass and aborted the surgery. Further consultation with oncology was performed and they recommended radiation treatment only. Patient was discharged from [facility] today on palliative care. [id number] reports that she was not ready to be discharged as she is still so weak. He could barely get the patient in the house and she ended up having a fall. Denies any injuries from the fall as she was slowly lowered to the floor. The patient is on TPN through a PICC line. [id number] states that she does not have all the accommodation set at home for the TPN. Patient does not have a hospital bed. They are unclear as to what medications the patient is supposed to get. Patient and family are requesting rehab placement. They were told that the patient can delay her radiation treatments by one month for rehab. They also report that they were going to transfer her care out to Dr. barton and Dr. Bowling as the only recommended treatment at this time is radiation. Patient was told that while she is on radiation she has not a hospice candidate but in the future if radiation fails to control her symptoms, hospice will be consulte d. Patient denies any pain at this time. No nausea or vomiting. She does have a palliative gastrojejunostomy and is nothing by mouth. No change in output. No other alleviating, Perceptin or modifying factors - Related Data Home Medications Medication Instructions Recorded Confirmed Buprenorphine [Butrans 10 MCG/HOUR] 1 patch TRANSDERM TU 11/15/22 11/15/22 MORPHINE ORAL STEVE 2mg/mL [Morphine 5 mg PO Q6H PRN 11/15/22 11/15/22 Oral Soln 2 MG/ML] Ondansetron Odt [Zofran Odt] 4 mg PO Q8H PRN 11/15/22 11/15/22 Allergies Allergy/AdvReac Type Severity Reaction Status Date / Time acetaminophen Allergy Rash/Hives Verified 11/15/22 20:40 Review of Systems ROS Statement: Those systems with pertinent positive or pertinent negative responses have been documented in the HPI. ROS Other: All systems not noted in ROS Statement are negative. Past Medical History Past Medical History: Cancer, Hyperlipidemia, Hypertension, Thyroid Disorder Additional Past Medical History / Comment(s): Kidney Cancer - on Palliative care History of Any Multi-Drug Resistant Organisms: None Reported Past Surgical History: No Surgical Hx Reported Additional Past Surgical History / Comment(s): laproscopy Past Psychological History: No Psychological Hx Reported Smoking Status: Never smoker Past Alcohol Use History: None Reported Past Drug Use History: None Reported - Past Family History Mother Family Medical History: Hypertension General Exam Limitations: physical limitation Course Vital Signs 11/15/22 11/15/22 11/15/22 17:09 17:15 18:48 Temperature 97.8 F Pulse Rate 100 55 L Pulse Rate [ 97 Red Cap ] Respiratory 18 18 Rate Blood Pressure 121/59 118/74 O2 Sat by Pulse 98 98 Oximetry 11/15/22 11/15/22 19:44 20:39 Temperature Pulse Rate 90 92 Pulse Rate [ Red Cap ] Respiratory 16 18 Rate Blood Pressure 128/66 132/70 O2 Sat by Pulse 100 99 Oximetry EKG Findings - EKG Comments: EKG Findings:: EKG demonstrates sinus rhythm with a rate of 87. IN interval 129. QRS 88. QTC 399. No acute ST segment elevations or depressions Medical Decision Making - Medical Decision Making Was pt. sent in by a medical professional or institution (, PA, [employer]TER [employer], urgent care, hospital, or fci...) When possible be specific @ -[No] Did you speak to anyone other than the patient for history (EMS, parent, family, police, friend...)? What history was obtained from this source @ -[No] Did you review nursing and triage notes (agree or disagree)? Why? @ -[I reviewed and agree with nursing and triage notes] Were old charts reviewed (outside hosp., previous admission, EMS record, old EKG, old radiological studies, urgent care reports/EKG's, fci records)? Report findings @ -[No old charts were reviewed] Differential Diagnosis (chest pain, altered mental status, abdominal pain women, abdominal pain men, vaginal bleeding, weakness, fever, dyspnea, syncope, headache, dizziness, GI bleed, back pain, seizure, CVA, palpatations, mental health)? @ -[not applicable] EKG interpreted by me (3pts min.). @ -[As above] X-rays interpreted by me (1pt min.). @ -[None done] CT interpreted by me (1pt min.). @ -[None done] U/S interpreted by me (1pt. min.). @ -[None done] What testing was considered but not performed or refused? (CT, X-rays, U/S, labs)? Why? @ -[None] What meds were considered but not given or refused? Why? @ -[None] Did you discuss the management of the patient with other professionals (professionals i.e. , PA, [employer], lab, RT, psych nurse, social service technician, geospatial program management officer, teacher, motorized squad commanding officer, case making machine operator)? Give summary @ -[No] Was smoking cessation discussed for >3mins.? @ -[No] Was critical care preformed (if so, how long)? @ -[No] Were there social determinants of health that impacted care today? How? (Homelessness, low income, unemployed, alcoholism, drug addiction, transportation, low edu. Level, literacy, decrease access to med. care, prison, rehab)? @ -[No] Was there de-escalation of care discussed even if they declined (Discuss DNR or withdrawal of care, Hospice)? DNR status @ -[No] What co-morbidities impacted this encounter? (DM, HTN, Smoking, COPD, CAD, Cancer, CVA, ARF, Chemo, Hep., AIDS, mental health diagnosis, sleep apnea, morbid obesity)? @ -[None] Was patient admitted / discharged? Hospital course, mention meds given and route, prescriptions, significant lab abnormalities, going to OR and other pertinent info. Upon arrival patient is placed into trauma 2. There are history and physical exam is performed. I did review her discharge paperwork from [facility]. Patient is too weak to go home and accommodations are not in place. Patient needs rehab and additional nursing care. Patient will be admitted to [facility] emergency department physicians. Spoke with Dr. romero who is agreeable Undiagnosed new problem with uncertain prognosis? @ -[No] Drug Therapy requiring intensive monitoring for toxicity (Heparin, Nitro, Insulin, Cardizem)? @ -[No] Were any procedures done? @ -[No] Diagnosis/symptom? @ -[default] Acute, or Chronic, or Acute on Chronic? @ -[default] Uncomplicated (without systemic symptoms) or Complicated (systemic symptoms)? @ -[default] Side effects of treatment? @ -[No] Exacerbation, Progression, or Severe Exacerbation? @ -[No] Poses a threat to life or bodily function? How? (Chest pain, USA, ID, pneumonia, PE, COPD, DKA, ARF, appy, cholecystitis, CVA, Diverticulitis, Homicidal, Suicidal, threat to staff... and all critical care pts) @ -[No] - Lab Data Result diagrams: 11/15/22 18:25 11/15/22 18:25 Lab Results 11/15/22 11/15/22 11/15/22 Range/Units 17:21 18:25 18:25 WBC 14.6 H (3.8-10.6) k/uL RBC 3.05 L (3.80-5.40) m/uL Hgb 8.2 L (11.4-16.0) gm/dL Hct 25.8 L (34.0-46.0) % MCV 84.5 (80.0-100.0) fL MCH 26.7 (25.0-35.0) pg MCHC 31.6 (31.0-37.0) g/dL RDW 15.7 H (11.5-15.5) % Plt Count 316 (150-450) k/uL MPV 8.2 Neutrophils % 93 % Lymphocytes % 2 % Monocytes % 3 % Eosinophils % 1 % Basophils % 0 % Neutrophils # 13.5 H (1.3-7.7) k/uL Lymphocytes # 0.3 L (1.0-4.8) k/uL Monocytes # 0.5 (0-1.0) k/uL Eosinophils # 0.2 (0-0.7) k/uL Basophils # 0.0 (0-0.2) k/uL PT 11.1 (9.0-12.0) sec INR 1.1 (<1.2) APTT 24.8 (22.0-30.0) sec Sodium (137-145) mmol/L Potassium (3.5-5.1) mmol/L Chloride (98-107) mmol/L Carbon Dioxide (22-30) mmol/L Anion Gap mmol/L BUN (7-17) mg/dL Creatinine (0.52-1.04) mg/dL Est GFR (CKD-EPI)AfAm (>60 ml/min/1.73 sqM) Est GFR (CKD-EPI)NonAf (>60 ml/min/1.73 sqM) Glucose (74-99) mg/dL POC Glucose (mg/dL) 134 H (70-110) mg/dL POC Glu Pharmacy Clinical Coordinator ID Ciales, Lacho Plasma Lactic Acid Devon (0.7-2.0) mmol/L Calcium (8.4-10.2) mg/dL Magnesium (1.6-2.3) mg/dL Total Bilirubin (0.2-1.3) mg/dL AST (14-36) U/L ALT (4-34) U/L Alkaline Phosphatase (38-126) U/L Troponin I (0.000-0.034) ng/mL NT-Pro-B Natriuret Pep pg/mL Total Protein (6.3-8.2) g/dL Albumin (3.5-5.0) g/dL 11/15/22 11/15/22 11/15/22 Range/Units 18:25 18:25 18:25 WBC (3.8-10.6) k/uL RBC (3.80-5.40) m/uL Hgb (11.4-16.0) gm/dL Hct (34.0-46.0) % MCV (80.0-100.0) fL MCH (25.0-35.0) pg MCHC (31.0-37.0) g/dL RDW (11.5-15.5) % Plt Count (150-450) k/uL MPV Neutrophils % % Lymphocytes % % Monocytes % % Eosinophils % % Basophils % % Neutrophils # (1.3-7.7) k/uL Lymphocytes # (1.0-4.8) k/uL Monocytes # (0-1.0) k/uL Eosinophils # (0-0.7) k/uL Basophils # (0-0.2) k/uL PT (9.0-12.0) sec INR (<1.2) APTT (22.0-30.0) sec Sodium 143 (137-145) mmol/L Potassium 4.2 (3.5-5.1) mmol/L Chloride 113 H (98-107) mmol/L Carbon Dioxide 23 (22-30) mmol/L Anion Gap 7 mmol/L BUN 30 H (7-17) mg/dL Creatinine 0.77 (0.52-1.04) mg/dL Est GFR (CKD-EPI)AfAm >90 (>60 ml/min/1.73 sqM) Est GFR (CKD-EPI)NonAf 81 (>60 ml/min/1.73 sqM) Glucose 131 H (74-99) mg/dL POC Glucose (mg/dL) (70-110) mg/dL POC Glu Pharmacy Clinical Coordinator ID Plasma Lactic Acid Devon 1.2 (0.7-2.0) mmol/L Calcium 8.2 L (8.4-10.2) mg/dL Magnesium 2.3 (1.6-2.3) mg/dL Total Bilirubin 2.3 H (0.2-1.3) mg/dL AST 38 H (14-36) U/L ALT 62 H (4-34) U/L Alkaline Phosphatase 781 H (38-126) U/L Troponin I <0.012 (0.000-0.034) ng/mL NT-Pro-B Natriuret Pep pg/mL Total Protein 5.9 L (6.3-8.2) g/dL Albumin 2.5 L (3.5-5.0) g/dL 11/15/22 Range/Units 18:25 WBC (3.8-10.6) k/uL RBC (3.80-5.40) m/uL Hgb (11.4-16.0) gm/dL Hct (34.0-46.0) % MCV (80.0-100.0) fL MCH (25.0-35.0) pg MCHC (31.0-37.0) g/dL RDW (11.5-15.5) % Plt Count (150-450) k/uL MPV Neutrophils % % Lymphocytes % % Monocytes % % Eosinophils % % Basophils % % Neutrophils # (1.3-7.7) k/uL Lymphocytes # (1.0-4.8) k/uL Monocytes # (0-1.0) k/uL Eosinophils # (0-0.7) k/uL Basophils # (0-0.2) k/uL PT (9.0-12.0) sec INR (<1.2) APTT (22.0-30.0) sec Sodium (137-145) mmol/L Potassium (3.5-5.1) mmol/L Chloride (98-107) mmol/L Carbon Dioxide (22-30) mmol/L Anion Gap mmol/L BUN (7-17) mg/dL Creatinine (0.52-1.04) mg/dL Est GFR (CKD-EPI)AfAm (>60 ml/min/1.73 sqM) Est GFR (CKD-EPI)NonAf (>60 ml/min/1.73 sqM) Glucose (74-99) mg/dL POC Glucose (mg/dL) (70-110) mg/dL POC Glu Pharmacy Clinical Coordinator ID Plasma Lactic Acid Devon (0.7-2.0) mmol/L Calcium (8.4-10.2) mg/dL Magnesium (1.6-2.3) mg/dL Total Bilirubin (0.2-1.3) mg/dL AST (14-36) U/L ALT (4-34) U/L Alkaline Phosphatase (38-126) U/L Troponin I (0.000-0.034) ng/mL NT-Pro-B Natriuret Pep 804 pg/mL Total Protein (6.3-8.2) g/dL Albumin (3.5-5.0) g/dL Disposition Clinical Impression: Weakness, Renal cancer, Metastasis, Fall Disposition: ADMITTED IP TO THIS [facility] Condition: Stable Is patient prescribed a controlled substance at d/c from ED?: No Time of Disposition: 20:04 Decision to Admit Reason: Admit from EC Decision Date: 11/15/22 Decision Time: 20:05
[2022-11-15] MEDS ORDERED: NALOXONE 0.4 MG/ML 1 ML VIAL IV PRN (20:17)
--- NOTE | 2022-11-16 03:45 | P.HPIM ---
History of Present Illness H&P Date: 11/16/22 The patient is a 67-year-old female with a PMH of metastatic renal cell carcinoma recently diagnosed who had recently presented to the hospital on October 24. The patient was subsequently transferred to [facility] where the patient was scheduled to undergo nephrectomy but was noted to have an extensive disease burden with metastasis throughout the peritoneum, due to which the surgery was aborted. Oncology at that time recommended radiation therapy with possible chemotherapy down the road. The patient underwent a gastrojejunostomy and was subsequently discharged from [facility] on palliative care, however after returning home, the patient was weak and was unable to care for herself. The patient and her family subsequently brought her back to the emergency room for possible SNF/rehab placement. The patient was informed that she will undergo a hospice evaluation if the radiation does not produce significant results. At time of interview, patient reports chronic dif fuse abdominal pain and states that she has been NPO. Review of systems: Pertinent positives and negatives as discussed in HPI, a complete review of systems was performed and all other systems are negative. Physical examination: General: non toxic, no distress, appears at stated age, normal weight Derm: no unusual rashes/lesions, warm Head: atraumatic, normocephalic, symmetric Eyes: EOMI, no lid lag, anicteric sclera, pupils equal round reactive to light ENT: Nose and ears atraumatic Neck: No cervical lymphadenopathy, trachea midline, supple Mouth: no lip lesion, mucus membranes moist Cardiovascular: S1S2 reg, no murmur, positive dorsalis pedis pulse bilateral, no edema Lungs: CTA bilateral, no rhonchi, no rales, no accessory muscle use Abdominal: soft, gastric drain in place, mild diffuse tenderness to palpation, no guarding Ext: muscle strength 3 out of 5 in all 4 extremities grossly, no gross muscle atrophy, no contractures, Neuro: CN II-XI grossly intact, no gross focal neuro deficits Psych: Alert, oriented, appropriate affect Assessment/plan Diffuse weakness in patient with metastatic RCC and gastrojejunostomy tube (used for drainage) -PT consult -Patient notes that she has been NPO since discharge from [facility] -Document Scanner and Oncology consults for plan regarding patient refeeding (?TPN) DVT prophylaxis -Lovenox The patient is admitted with an anticipated greater than 2 midnight stay for evaluation of diffuse weakness CODE STATUS: Full Code Discussed with: Patient Anticipated discharge date: 2-[address]: [facility] Past Medical History Past Medical History: Cancer, Hyperlipidemia, Hypertension, Thyroid Disorder Additional Past Medical History / Comment(s): Kidney Cancer - on Palliative care History of Any Multi-Drug Resistant Organisms: None Reported Past Surgical History: No Surgical Hx Reported Additional Past Surgical History / Comment(s): laproscopy Past Psychological History: No Psychological Hx Reported Smoking Status: Never smoker Past Alcohol Use History: None Reported Past Drug Use History: None Reported - Past Family History Mother Family Medical History: Hypertension Medications and Allergies Home Medications Medication Instructions Recorded Confirmed Type Buprenorphine [Butrans 10 MCG/HOUR] 1 patch TRANSDERM TU 11/15/22 11/15/22 History MORPHINE ORAL STEVE 2mg/mL [Morphine 5 mg PO Q6H PRN 11/15/22 11/15/22 History Oral Soln 2 MG/ML] Ondansetron Odt [Zofran Odt] 4 mg PO Q8H PRN 11/15/22 11/15/22 History Allergies Allergy/AdvReac Type Severity Reaction Status Date / Time acetaminophen Allergy Rash/Hives Verified 11/15/22 20:40 Physical Exam Vitals: Vital Signs Temp Pulse Pulse Resp BP BP Pulse Ox 11/16/22 02:27 98.3 F 89 18 113/68 94 L 11/15/22 22:01 99 F 98 18 136/73 97 11/15/22 20:39 92 18 132/70 99 11/15/22 19:44 90 16 128/66 100 11/15/22 18:48 55 L 18 118/74 98 11/15/22 17:15 97 11/15/22 17:09 97.8 F 100 18 121/59 98 Intake and Output 11/15/22 11/15/22 11/16/22 14:59 22:59 06:59 Other: Voiding Method Toilet Weight 68 kg Results CBC & Chem 7: 11/15/22 18:25 11/15/22 18:25 Labs: Abnormal Lab Results - Last 24 Hours (Table) 11/15/22 11/15/22 11/15/22 Range/Units 17:21 18:25 18:25 WBC 14.6 H (3.8-10.6) k/uL RBC 3.05 L (3.80-5.40) m/uL Hgb 8.2 L (11.4-16.0) gm/dL Hct 25.8 L (34.0-46.0) % RDW 15.7 H (11.5-15.5) % Neutrophils # 13.5 H (1.3-7.7) k/uL Lymphocytes # 0.3 L (1.0-4.8) k/uL Chloride 113 H (98-107) mmol/L BUN 30 H (7-17) mg/dL Glucose 131 H (74-99) mg/dL POC Glucose (mg/dL) 134 H (70-110) mg/dL Calcium 8.2 L (8.4-10.2) mg/dL Total Bilirubin 2.3 H (0.2-1.3) mg/dL AST 38 H (14-36) U/L ALT 62 H (4-34) U/L Alkaline Phosphatase 781 H (38-126) U/L Total Protein 5.9 L (6.3-8.2) g/dL Albumin 2.5 L (3.5-5.0) g/dL Thrombosis Risk Factor Assmnt - Choose All That Apply Any of the Below Risk Factors Present?: Yes Each Factor Represents 1 point: Obesity (BMI >25), Swollen legs (current) Other Risk Factors: Yes Each Risk Factor Represents 2 Points: Age 61-74 years, Malignancy Other congenital or acquired thrombophilia - If yes, enter type in comment: No Thrombosis Risk Factor Assessment Total Risk Factor Score: 6 Thrombosis Risk Factor Assessment Level: High Risk
[2022-11-16] MEDS: MORPHINE ORAL SOLN 10 MG/5 ML CUP PO PRN ×2 (08:27→20:34)
[2022-11-16 09:12] LABS: Basophils # (A) 0.03 X 10*3/uL (0.00-0.10); Basophils % (A) 0.2 %; Eosinophils # (A) 0.16 X 10*3/uL (0.04-0.35); Eosinophils % (A) 1.2 %; HCT 24.4 % (37.2-46.3); Immature Grans, Automated 0.9 %; Lymphocytes # (A) 0.34 X 10*3/uL (0.90-5.00); Lymphocytes % (A) 2.4 %; MCH 25.6 pg (27.0-32.0); MCHC 28.7 g/dL (32.0-37.0); MCV 89.4 fL (80.0-97.0); Mean Platelet Volume 11.2 fL (9.5-12.2); Monocytes # (A) 0.78 X 10*3/uL (0.20-1.00); Monocytes % (A) 5.6 %; NRBC Per 100 WBC 0 /100 WBCS (0.0-0.0); Neutrophils # (A) 12.45 X 10*3/uL (1.80-7.70); Neutrophils % (A) 89.7 %; Platelet Count 331 X 10*3/uL (140-440); RBC 2.73 X 10*6/uL (4.10-5.20); RDW 17.6 % (11.5-14.5); WBC 13.89 X 10*3/uL (4.50-10.00)
[2022-11-16 09:26] LABS: African American GFR (CKD) 77.2 (60.0-200.0); Anion Gap 9.5 mmol/L (10.00-18.00); BUN/Creat Ratio 27.11 Ratio (12.00-20.00); Blood Urea Nitrogen 24.4 mg/dL (9.0-27.0); Calcium 8.4 mg/dL (8.7-10.3); Carbon Dioxide 22.5 mmol/L (20.0-27.5); Non-African American GFR(CKD) 66.6 (60.0-200.0); Potassium 4.3 mmol/L (3.5-5.5)
[2022-11-16] MEDS: ENOXAPARIN 40 MG/0.4 ML SYRINGE SQ SCH (10:14)
[2022-11-16] MEDS: ONDANSETRON ODT 4 MG TAB PO PRN ×2 (13:18→20:34)
[2022-11-16 13:27] VITALS: BMI 25.7
--- NOTE | 2022-11-16 14:58 | P.PN ---
Progress Note - Text Progress Note Date: 11/16/22 Hospitalist Interval Note Patient seen and examined at bedside. Vital signs reviewed General: non toxic, no distress, appears at stated age, normal weight Derm: no unusual rashes/lesions, warm Head: atraumatic, normocephalic, symmetric Eyes: EOMI, no lid lag, anicteric sclera, pupils equal round reactive to light ENT: Nose and ears atraumatic Neck: No cervical lymphadenopathy, trachea midline, supple Mouth: no lip lesion, mucus membranes moist Cardiovascular: S1S2 reg, no murmur, positive dorsalis pedis pulse bilateral, no edema Lungs: CTA bilateral, no rhonchi, no rales, no accessory muscle use Abdominal: soft, gastric drain in place, mild diffuse tenderness to palpation, no guarding Ext: muscle strength 3 out of 5 in all 4 extremities grossly, no gross muscle atrophy, no contractures, Neuro: CN II-XI grossly intact, no gross focal neuro deficits Psych: Alert, oriented, appropriate affect Assessment/Plan: Metastatic renal cell carcinoma Unable to tolerate oral intake Gastrojejunostomy tube used for drainage -Spoke with patient with regards to goals of care, patient would like to be functional again. Reiterated the extent of cancer, and possible need for hospice services. -Palliative care consulted. -Oncology following -The patient consult for TPN -Possible discharge to inpatient rehab. Will likely continue radiation during rehab. This is an update note for patient. There is no charge associated with this note.
--- NOTE | 2022-11-16 15:50 | P.HPCAR ---
History of Present Illness H&P Date: 11/16/22 Chief Complaint: "I have a sarcoma" Ms. 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 She is status post aborted nephrectomy and has initiated radiation therapy at [facility], having completed 06/13 treatments. The patient was first diagnosed with a large right renal mass in 08/2022. Accordingly, she was transferred to [facility] in [place]. There, she was seen by Dr. Darren Isbell and radical nephrectomy was attempted. However, intraoperatively the tumor involved the colonic mesentery, duodenum, vena cava, pancreas, and SMA. A complete oncological resection would have required a Whipple with caval dissection. A biopsy only was performed. I do not have pathology but do have MDM2 amplification report so I suspect it is a sarcoma (which is corroborated by the patient). She was then discussed at their tumor board and initiated radiation therapy. She underwent treatment yesterday having completed 06/13 treatments and then was discharged home but she has no means of transportation to [place]. She was unable to care for herself at home so presented to the ED. She has PEG tube and is not taking PO intake due to her mass. She notes diffuse abdominal pain which she does not feel improved with radiation treatments. She is requesting rehabilitation placement. She is motivated for continuation of treatment but is weak and needs to regain her strength. Review of Systems All systems: negative (abdominal pain, regurgitation) Physical Exam Vitals: Vital Signs Temp Pulse Pulse Pulse Resp BP BP 11/16/22 12:45 98.3 F 89 18 119/66 11/16/22 07:15 98.3 F 88 18 104/57 11/16/22 02:27 98.3 F 89 18 113/68 11/15/22 22:01 99 F 98 18 136/73 11/15/22 20:39 92 18 132/70 11/15/22 19:44 90 16 128/66 11/15/22 18:48 55 L 18 118/74 11/15/22 17:15 97 11/15/22 17:09 97.8 F 100 18 121/59 Pulse Ox 11/16/22 12:45 95 11/16/22 07:15 94 L 11/16/22 02:27 94 L 11/15/22 22:01 97 11/15/22 20:39 99 11/15/22 19:44 100 11/15/22 18:48 98 11/15/22 17:15 11/15/22 17:09 98 Intake and Output 11/16/22 11/16/22 11/16/22 06:59 14:59 22:59 Other: Voiding Method Toilet Toilet # Voids 2 Weight 68 kg - Constitutional General appearance: mild distress - Respiratory Respiratory: negative: prolonged expiration, prolonged inspiration - Cardiovascular Rhythm: regular - Gastrointestinal General gastrointestinal: distended, organomegaly, soft, tenderness Past Medical History Past Medical History: Cancer, Hyperlipidemia, Hypertension, Thyroid Disorder Additional Past Medical History / Comment(s): Kidney Cancer - on Palliative care History of Any Multi-Drug Resistant Organisms: None Reported Past Surgical History: No Surgical Hx Reported Additional Past Surgical History / Comment(s): laproscopy Past Psychological History: No Psychological Hx Reported Smoking Status: Never smoker Past Alcohol Use History: None Reported Past Drug Use History: None Reported - Past Family History Mother Family Medical History: Hypertension Physical Examination Vital Signs Temp Pulse Pulse Pulse Resp BP BP 11/16/22 12:45 98.3 F 89 18 119/66 11/16/22 07:15 98.3 F 88 18 104/57 11/16/22 02:27 98.3 F 89 18 113/68 11/15/22 22:01 99 F 98 18 136/73 11/15/22 20:39 92 18 132/70 11/15/22 19:44 90 16 128/66 11/15/22 18:48 55 L 18 118/74 11/15/22 17:15 97 11/15/22 17:09 97.8 F 100 18 121/59 Pulse Ox 11/16/22 12:45 95 11/16/22 07:15 94 L 11/16/22 02:27 94 L 11/15/22 22:01 97 11/15/22 20:39 99 11/15/22 19:44 100 11/15/22 18:48 98 11/15/22 17:15 11/15/22 17:09 98 Intake and Output 11/16/22 11/16/22 11/16/22 06:59 14:59 22:59 Other: Voiding Method Toilet Toilet # Voids 2 Weight 68 kg Results 11/16/22 06:49 11/16/22 06:49 Cardiac Enzymes 11/15/22 11/15/22 Range/Units 18:25 18:25 AST 38 H (14-36) U/L Troponin I <0.012 (0.000-0.034) ng/mL Coagulation 11/15/22 Range/Units 18:25 PT 11.1 (9.0-12.0) sec APTT 24.8 (22.0-30.0) sec CBC 11/15/22 11/16/22 Range/Units 18:25 06:49 WBC 14.6 H 13.89 H (3.8-10.6) k/uL RBC 3.05 L 2.73 L (3.80-5.40) m/uL Hgb 8.2 L 7.0 L (11.4-16.0) gm/dL Hct 25.8 L 24.4 L (34.0-46.0) % Plt Count 316 331 (150-450) k/uL Comprehensive Metabolic Panel 11/15/22 11/16/22 Range/Units 18:25 06:49 Sodium 143 143 (137-145) mmol/L Potassium 4.2 4.3 (3.5-5.1) mmol/L Chloride 113 H 111 H (98-107) mmol/L Carbon Dioxide 23 22.5 (22-30) mmol/L BUN 30 H 24.4 (7-17) mg/dL Creatinine 0.77 0.9 (0.52-1.04) mg/dL Glucose 131 H 101 (74-99) mg/dL Calcium 8.2 L 8.4 L (8.4-10.2) mg/dL AST 38 H (14-36) U/L ALT 62 H (4-34) U/L Alkaline Phosphatase 781 H (38-126) U/L Total Protein 5.9 L (6.3-8.2) g/dL Albumin 2.5 L (3.5-5.0) g/dL Current Medications Generic Name Dose Route Start Last Admin Trade Name Freq PRN Reason Stop Dose Admin Enoxaparin Sodium 40 mg 11/16/22 09:00 11/16/22 10:14 Enoxaparin 40 Mg/0.4 Ml Syringe SQ 40 mg DAILY CECE Administration Morphine Sulfate 5 mg 11/16/22 01:09 11/16/22 08:27 Morphine Oral Soln 10 Mg/5 Ml Cup PO 5 mg Q6H PRN Administration Pain Naloxone HCl 0.2 mg 11/15/22 20:17 Naloxone 0.4 Mg/Ml 1 Ml Vial IV Q2M PRN Opioid Reversal Non-Formulary Medication 1 patch 11/21/22 09:00 Buprenorphine [Butrans 10 Mcg/Hour] TRANSDERM Tu@0900 CECE Ondansetron HCl 4 mg 11/16/22 01:09 11/16/22 13:18 Ondansetron Odt 4 Mg Tab PO 4 mg Q8H PRN Administration Nausea Intake and Output 11/16/22 11/16/22 11/16/22 06:59 14:59 22:59 Other: Voiding Method Toilet Toilet # Voids 2 Weight 68 kg Patient Weight 11/17/22 06:59 Weight 68 kg 11/16/22 06:49 11/16/22 06:49 Assessment and Plan Assessment: Ms. 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 She is status post aborted nephrectomy and has initiated radiation therapy at [facility], having completed 06/13 treatments. Plan: I need to obtain additional records from [facility] to clarify her pathology and radiation treatment to date. 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 I am not sure if the team in [place] felt she could become resectable with radiation and/or chemotherapy. She would like to transfer her care here. There is no urgent indication for radiation therapy. I recommend that she undergo rehabilitation evaluation. Agree with oncology consultation. Lc Perez MD Time with Patient: Greater than 30
[2022-11-16 16:23] LABS: Albumin 2.4 g/dL (3.8-4.9); Magnesium 2.2 mg/dL (1.5-2.4); Phosphorus 4.2 mg/dL (2.4-5.1)
--- NOTE | 2022-11-16 16:26 | P.CONS ---
History of Present Illness - Chief Complaint General weakness - History of Present Illness I had the opportunity see patient for inpatient rehab consultation. Patient admitted to [facility] November 15 with generalized weakness and renal cell cancer. Reports recent 1 month stay [facility] for chemotherapy. She reports difficulty upon return to home, unable to manage her 3 steps into house. Did started therapy. PT reports minimal assistance bed mobility and transfer and supervision gait 100 feet with roller walker. OT reports independent with feeding, supervision for grooming, minimal assistance for upper dressing, toileting and functional mobility/transfers and moderate assistance for lower dressing and bathing. Previous functional history elicited patient corroborative by sister: 67 -year-old right-handed white female is single lives in one floor home alone. Retired. Describes previously independent with own cooking, laundry, driving, sitdown shower and gait without device. PCP Dr. Govea. Denies tobacco or alcohol. Review of Systems Review of systems: ENT: Denies sneezes or discharge. Eyes: Denies discharge or photophobia. Cardiac: Denies chest pain or palpitation. Pulmonary: Denies cough or shortness of breath. Breast: Denies discharge or lumps. Gastrointestinal: Denies nausea, emesis, constipation, diarrhea. Genitourinary: Renal cancer. Musculoskeletal: Denies muscle or bone aches. Neurologic: General weakness. Endocrine: Denies shakes or sweats. Oncology: Denies cancers. Dermatologic: Denies rash, itching, pruritus. ALLERGY/immunology: Denies sneezes, rashes. Past Medical History Past Medical History: Cancer, Hyperlipidemia, Hypertension, Thyroid Disorder Additional Past Medical History / Comment(s): Kidney Cancer - on Palliative care History of Any Multi-Drug Resistant Organisms: None Reported Past Surgical History: No Surgical Hx Reported Additional Past Surgical History / Comment(s): laproscopy Past Psychological History: No Psychological Hx Reported Smoking Status: Never smoker Past Alcohol Use History: None Reported Past Drug Use History: None Reported - Past Family History Mother Family Medical History: Hypertension Medications and Allergies Home Medications Medication Instructions Recorded Confirmed Type Buprenorphine [Butrans 10 MCG/HOUR] 1 patch TRANSDERM TU 11/15/22 11/15/22 History MORPHINE ORAL STEVE 2mg/mL [Morphine 5 mg PO Q6H PRN 11/15/22 11/15/22 History Oral Soln 2 MG/ML] Ondansetron Odt [Zofran Odt] 4 mg PO Q8H PRN 11/15/22 11/15/22 History Allergies Allergy/AdvReac Type Severity Reaction Status Date / Time acetaminophen Allergy Rash/Hives Verified 11/15/22 20:40 Physical Exam Vitals: Vital Signs Temp Pulse Pulse Pulse Resp BP BP 11/16/22 12:45 98.3 F 89 18 119/66 11/16/22 07:15 98.3 F 88 18 104/57 11/16/22 02:27 98.3 F 89 18 113/68 11/15/22 22:01 99 F 98 18 136/73 11/15/22 20:39 92 18 132/70 11/15/22 19:44 90 16 128/66 11/15/22 18:48 55 L 18 118/74 11/15/22 17:15 97 11/15/22 17:09 97.8 F 100 18 121/59 Pulse Ox 11/16/22 12:45 95 11/16/22 07:15 94 L 11/16/22 02:27 94 L 11/15/22 22:01 97 11/15/22 20:39 99 11/15/22 19:44 100 11/15/22 18:48 98 11/15/22 17:15 11/15/22 17:09 98 Intake and Output 11/16/22 11/16/22 11/16/22 06:59 14:59 22:59 Other: Voiding Method Toilet Toilet # Voids 2 Weight 68 kg Skin: Good color, texture, turgor. General: Medium build and comfortable appearance. Head: Normocephalic, atraumatic. Eyes: Symmetric. Pupils equal round. Ears: Symmetric. Hearing within normal limits. Mouth: Clear. Neck: Supple. Carotid without bruit. Cardiac: Regular rate and rhythm. Lungs: Clear anteriorly and posteriorly. Abdomen: Soft active nontender. Extremities: Normal tone. Marked limitation left shoulder, long-standing. Neurological: Mental status: Alert, cooperative, pleasant. Cranial nerves: Symmetric facial tone and trapezius. Motor: Active movement all 4 limbs of about antigravity. Sensation: Intact throughout. DTRs: Symmetric and equal throughout. Mobility: Requires physical assist to sit and stand. Results CBC & Chem 7: 11/16/22 06:49 11/16/22 06:49 Labs: Abnormal Lab Results - Last 24 Hours (Table) 11/15/22 11/15/22 11/15/22 Range/Units 17:21 18:25 18:25 WBC 14.6 H (3.8-10.6) k/uL RBC 3.05 L (3.80-5.40) m/uL Hgb 8.2 L (11.4-16.0) gm/dL Hct 25.8 L (34.0-46.0) % MCH (27.0-32.0) pg MCHC (32.0-37.0) g/dL RDW 15.7 H (11.5-15.5) % Immature Gran # (0.00-0.04) X 10*3/uL Neutrophils # 13.5 H (1.3-7.7) k/uL Lymphocytes # 0.3 L (1.0-4.8) k/uL Chloride 113 H (98-107) mmol/L Anion Gap (10.00-18.00) mmol/L BUN 30 H (7-17) mg/dL BUN/Creatinine Ratio (12.00-20.00) Ratio Glucose 131 H (74-99) mg/dL POC Glucose (mg/dL) 134 H (70-110) mg/dL Calcium 8.2 L (8.4-10.2) mg/dL Total Bilirubin 2.3 H (0.2-1.3) mg/dL AST 38 H (14-36) U/L ALT 62 H (4-34) U/L Alkaline Phosphatase 781 H (38-126) U/L Total Protein 5.9 L (6.3-8.2) g/dL Albumin 2.5 L (3.5-5.0) g/dL 11/16/22 11/16/22 Range/Units 06:49 06:49 WBC 13.89 H (3.8-10.6) k/uL RBC 2.73 L (3.80-5.40) m/uL Hgb 7.0 L (11.4-16.0) gm/dL Hct 24.4 L (34.0-46.0) % MCH 25.6 L (27.0-32.0) pg MCHC 28.7 L (32.0-37.0) g/dL RDW 17.6 H (11.5-15.5) % Immature Gran # 0.13 H (0.00-0.04) X 10*3/uL Neutrophils # 12.45 H (1.3-7.7) k/uL Lymphocytes # 0.34 L (1.0-4.8) k/uL Chloride 111 H (98-107) mmol/L Anion Gap 9.50 L (10.00-18.00) mmol/L BUN (7-17) mg/dL BUN/Creatinine Ratio 27.11 H (12.00-20.00) Ratio Glucose (74-99) mg/dL POC Glucose (mg/dL) (70-110) mg/dL Calcium 8.4 L (8.4-10.2) mg/dL Total Bilirubin (0.2-1.3) mg/dL AST (14-36) U/L ALT (4-34) U/L Alkaline Phosphatase (38-126) U/L Total Protein (6.3-8.2) g/dL Albumin (3.5-5.0) g/dL Assessment and Plan (1) Fall Current Visit: Yes Status: Acute Code(s): W19.XXXA - UNSPECIFIED FALL, INITIAL ENCOUNTER SNOMED Code(s): 9116796 (2) Renal cancer Current Visit: Yes Status: Acute Code(s): C64.9 - MALIGNANT NEOPLASM OF UNSP KIDNEY, EXCEPT RENAL PELVIS SNOMED Code(s): 239795274 (3) Weakness Current Visit: Yes Status: Acute Code(s): R53.1 - WEAKNESS SNOMED Code(s): 31934640 (4) Metastatic renal cell carcinoma to intra-abdominal site Current Visit: No Status: Acute Code(s): C79.89 - SECONDARY MALIGNANT NEOPLASM OF OTHER SPECIFIED SITES; C64.9 - MALIGNANT NEOPLASM OF UNSP KIDNEY, EXCEPT RENAL PELVIS SNOMED Code(s): 036811044 (5) Syncope Current Visit: No Status: Acute Code(s): R55 - SYNCOPE AND COLLAPSE SNOMED Code(s): 669533133 Plan: Comments and plan: At this time I discussed inpatient rehab. Her support for return to home would be the [id number]. At this time patient agreeable and hopeful for IP are stay. She did discuss that she would do this prior to any future chemotherapy or radiation therapy. Have also discussed process with regard to insurance authorization and patient and sister in law on both seem to understand.
--- NOTE | 2022-11-16 18:41 | P.CONS ---
History of Present Illness - Reason for Consult Consult date: 11/16/22 Renal mass Requesting physician: Juliet Todd - Chief Complaint Weakness - History of Present Illness Mr. Eli is a 67-year-old female we have been asked to see regarding recent diagnosis at [facility] of cancer. Patient was initially seen here in August, c/o complaints of flank pain, nausea and vomiting, she had an MRI revealing a right renal mass, urology evaluated the patient and she was transferred for surgery [facility]. Patient states that when she was in surgery the doctor described "sarcoma all across the belly" and she was closed up. Patient had difficulty eating and it was felt that the patient should not take anything by mouth because her "belly collapsed" with concerns for possible obstruction if she did eat solid food. They didn't want to do a barium to confirm. Patient also had a few episodes of hematemesis. She had d ecompression tube for the stomach placed, PICC line and TPN with complete nothing by mouth diet. She was started on radiation, she had 8 of 30 planned treatments. When I talked to the patient's niece who is also her advocate, there was never a discussion about systemic therapy. She thinks they met with a Medical Oncologist once. Patient does live locally though, and was planning to transfer her treatment here. Patient was discharged from [facility] yesterday. When she got home she was unable to make it up 3 steps into her house. She had a friend called EMS who brought her to the hospital. Patient is doing okay but, she recognizes that she needs to participate in rehabilitation to have some strength back to take care of herself as she does live on her own. No had no other physical complaints. Review of Systems 10 point review of systems is negative except as stated in HPI Past Medical History Past Medical History: Cancer, Hyperlipidemia, Hypertension, Thyroid Disorder Additional Past Medical History / Comment(s): Kidney Cancer - on Palliative care History of Any Multi-Drug Resistant Organisms: None Reported Past Surgical History: No Surgical Hx Reported Additional Past Surgical History / Comment(s): laproscopy Past Psychological History: No Psychological Hx Reported Smoking Status: Never smoker Past Alcohol Use History: None Reported Past Drug Use History: None Reported - Past Family History Mother Family Medical History: Hypertension Medications and Allergies Home Medications Medication Instructions Recorded Confirmed Type Buprenorphine [Butrans 10 MCG/HOUR] 1 patch TRANSDERM TU 11/15/22 11/15/22 History MORPHINE ORAL STEVE 2mg/mL [Morphine 5 mg PO Q6H PRN 11/15/22 11/15/22 History Oral Soln 2 MG/ML] Ondansetron Odt [Zofran Odt] 4 mg PO Q8H PRN 11/15/22 11/15/22 History Allergies Allergy/AdvReac Type Severity Reaction Status Date / Time acetaminophen Allergy Rash/Hives Verified 11/15/22 20:40 Physical Exam Vitals: Vital Signs Temp Pulse Pulse Pulse Resp BP BP 11/16/22 07:15 98.3 F 88 18 104/57 11/16/22 02:27 98.3 F 89 18 113/68 11/15/22 22:01 99 F 98 18 136/73 11/15/22 20:39 92 18 132/70 11/15/22 19:44 90 16 128/66 11/15/22 18:48 55 L 18 118/74 11/15/22 17:15 97 11/15/22 17:09 97.8 F 100 18 121/59 Pulse Ox 11/16/22 07:15 94 L 11/16/22 02:27 94 L 11/15/22 22:01 97 11/15/22 20:39 99 11/15/22 19:44 100 11/15/22 18:48 98 11/15/22 17:15 11/15/22 17:09 98 Intake and Output 11/15/22 11/16/22 11/16/22 22:59 06:59 14:59 Other: Voiding Method Toilet Toilet # Voids 2 Weight 68 kg - Constitutional General appearance: cooperative, no acute distress, obese - EENT Eyes: anicteric sclerae, EOMI ENT: hearing grossly normal, normal oropharynx - Neck Neck: no lymphadenopathy - Respiratory Respiratory: bilateral: CTA - Cardiovascular Rhythm: regular Heart sounds: normal: S1, S2 Abnormal Heart Sounds: no systolic murmur, no diastolic murmur, no rub, no S3 Gallop, no S4 Gallop, no click, no other leg Peripheral Edema: bilateral: None - Gastrointestinal Mass palpated in the right abdomen, about the size of an orange. Left upper quadrant decompression tube attached to ostomy appliance for drainage of gastric contents General gastrointestinal: decreased bowel sounds, soft, tenderness - Integumentary Integumentary: pale - Neurologic Neurologic: CNII-XII intact - Musculoskeletal Musculoskeletal: generalized weakness, strength equal bilaterally - Psychiatric Psychiatric: A&O x's 3, appropriate affect, intact judgment & insight Results CBC & Chem 7: 11/16/22 06:49 11/16/22 06:49 Labs: Abnormal Lab Results - Last 24 Hours (Table) 11/15/22 11/15/22 11/15/22 Range/Units 17:21 18:25 18:25 WBC 14.6 H (3.8-10.6) k/uL RBC 3.05 L (3.80-5.40) m/uL Hgb 8.2 L (11.4-16.0) gm/dL Hct 25.8 L (34.0-46.0) % MCH (27.0-32.0) pg MCHC (32.0-37.0) g/dL RDW 15.7 H (11.5-15.5) % Immature Gran # (0.00-0.04) X 10*3/uL Neutrophils # 13.5 H (1.3-7.7) k/uL Lymphocytes # 0.3 L (1.0-4.8) k/uL Chloride 113 H (98-107) mmol/L Anion Gap (10.00-18.00) mmol/L BUN 30 H (7-17) mg/dL BUN/Creatinine Ratio (12.00-20.00) Ratio Glucose 131 H (74-99) mg/dL POC Glucose (mg/dL) 134 H (70-110) mg/dL Calcium 8.2 L (8.4-10.2) mg/dL Total Bilirubin 2.3 H (0.2-1.3) mg/dL AST 38 H (14-36) U/L ALT 62 H (4-34) U/L Alkaline Phosphatase 781 H (38-126) U/L Total Protein 5.9 L (6.3-8.2) g/dL Albumin 2.5 L (3.5-5.0) g/dL 11/16/22 11/16/22 Range/Units 06:49 06:49 WBC 13.89 H (3.8-10.6) k/uL RBC 2.73 L (3.80-5.40) m/uL Hgb 7.0 L (11.4-16.0) gm/dL Hct 24.4 L (34.0-46.0) % MCH 25.6 L (27.0-32.0) pg MCHC 28.7 L (32.0-37.0) g/dL RDW 17.6 H (11.5-15.5) % Immature Gran # 0.13 H (0.00-0.04) X 10*3/uL Neutrophils # 12.45 H (1.3-7.7) k/uL Lymphocytes # 0.34 L (1.0-4.8) k/uL Chloride 111 H (98-107) mmol/L Anion Gap 9.50 L (10.00-18.00) mmol/L BUN (7-17) mg/dL BUN/Creatinine Ratio 27.11 H (12.00-20.00) Ratio Glucose (74-99) mg/dL POC Glucose (mg/dL) (70-110) mg/dL Calcium 8.4 L (8.4-10.2) mg/dL Total Bilirubin (0.2-1.3) mg/dL AST (14-36) U/L ALT (4-34) U/L Alkaline Phosphatase (38-126) U/L Total Protein (6.3-8.2) g/dL Albumin (3.5-5.0) g/dL Assessment and Plan (1) Renal mass Current Visit: Yes Status: Acute Priority: High Code(s): N28.89 - OTHER SPECIFIED DISORDERS OF KIDNEY AND URETER SNOMED Code(s): 013635682 Plan: Renal mass/Obstruction -We'll obtain records from [facility]. Need pathology to discuss treatment o -Radiation oncology consulted. Patient has started radiation at [facility] -Discussed with patient the importance of rehabilitation that she is strong enough to consider Systemic treatment -Agree with rehabilitation -Agree with ongoing TPN and decompression tube for now. Continue nothing by mouth -Follow-up in the office after rehab Time with Patient: Greater than 30
[2022-11-16] MEDS ORDERED: MVI, ADULT NO.4 WITH VIT K 10 ML, TRACE (CONC-1ML/DOSE) 1 ML in AMINO ACID 5%-D20W+LYTE... IV SCH ×3 (20:00)
[2022-11-17] LABS: Glucose,Whole Blood 118 mg/dL (70-110)
[2022-11-17 06:00] LABS: Glucose,Whole Blood 152 mg/dL (70-110)
[2022-11-17 06:19] LABS: Ionized Calcium 5.2 mg/dL (4.5-5.3)
[2022-11-17 06:28] LABS: African American GFR (CKD) 83 (>60 ml/min/1.73 sqM); Anion Gap 5 mmol/L; Blood Urea Nitrogen 22 mg/dL (7-17); Calcium 7.9 mg/dL (8.4-10.2); Carbon Dioxide 26 mmol/L (22-30); Chloride 112 mmol/L (98-107); Glucose 135 mg/dL (74-99); Magnesium 2.2 mg/dL (1.6-2.3); Non-African American GFR(CKD) 72 (>60 ml/min/1.73 sqM); Sodium 143 mmol/L (137-145)
[2022-11-17] MEDS ORDERED: 1: MVI, ADULT NO.4 WITH VIT K 10 ML, TRACE (CONC-1ML/DOSE) 1 ML in AMINO ACID 5%-D20W+LY IV SCH ×6 (08:00→20:00)
[2022-11-17] MEDS: ENOXAPARIN 40 MG/0.4 ML SYRINGE SQ SCH (09:26)
--- NOTE | 2022-11-17 09:47 | P.DS ---
Providers Date of admission: 11/15/22 20:25 Expected date of discharge: 11/17/22 Attending physician: Arlene Rucker MD Consults: 11/15/22 20:17 Consult Physician Urgent Consulting Provider: Sheldon Van Consult Reason/Comments: metastatic renal cancer Do you want consulting provider notified?: Yes Consult Physician Urgent Consulting Provider: Alexander Bowling Consult Reason/Comments: metastatic renal cancer Do you want consulting provider notified?: Yes 11/16/22 08:53 Consult Physician Urgent Consulting Provider: Sp Dorantes Consult Reason/Comments: in pt rehab please Do you want consulting provider notified?: Yes 11/16/22 10:30 Consult to Palliative Care Urgent Consulting Provider: Norma Abarca Consult Reason/Comments: renal cancer, inoperable, on TPN, needs goals of care disussion Do you want consulting provider notified?: Yes Primary care physician: Page [facility] Course: Discharge Diagnosis: 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 She had presented to the hospital on October 24. The patient was subsequently transferred to [facility] where she was scheduled to undergo nephrectomy but was noted to have an extensive disease burden with metastasis throughout the peritoneum and surgery was aborted. At that time oncology recommended radiation therapy with possible chemotherapy down the road. The patient underwent a gastrojejunostomy tube for decompression and was s ubsequently discharged from [facility] on palliative care. After returning home, the patient was weak and unable to care for herself. The patient and her family subsequently brought her back to the emergency room for possible SNF/rehab placement. Arrangements were made for inpatient rehab. She was seen by oncology and rad onc prior to discharge. She is aware that radiation and chemo will need to be held while at rehab. Her HgB did decrease slightly to 6.6 without signs of bleeding. She was given 1 unit of pRBC with appropriate response and discharged to inpatient rehab. Follow-up: Dr. Van, will need TPN through PICC line, Daily lab monitoring. Suggest Liquid thyroid such as Tirosint 25 mcg be started to replace her thyroid tab, that she has been off of. Continue to have GJ tube to drainage. CBC in 2 days and the weekly. Patient seen and examined at bedside. She was on thyroid prior to needing TPN and is wondering about options. She feels much better than yesterday her nasuea is resolved and he pain is much better. Vital signs reviewed and stable. General: nontoxic, no distress, appears at stated age, ill appearing Derm: warm, dry Head: atraumatic, normocephalic, symmetric Eyes: EOMI, no lid lag, anicteric sclera Mouth: no lip lesion, mucus membranes dry Cardiovascular: S1S2 reg, no murmur, positive posterior tibial pulse bilateral, Lungs: Decreased bs bilateral, no rhonchi, no rales , no accessory muscle use Abdominal: soft, + tender to palpation LUQ, no guarding, no appreciable organomegaly Ext: no gross muscle atrophy, no edema, no contractures Neuro: CN II-XI grossly intact, no focal neuro deficits Psych: Alert, oriented, appropriate affect A total of 33 minutes of time were spent preparing this complex discharge summary. Patient was discharged on 11/17/22. Patient Condition at Discharge: Stable Plan - Discharge Summary Discharge Rx Participant: Yes New Discharge Prescriptions: New Levothyroxine Sodium [Tirosint-Steve] 25 mcg PO DAILY #30 ml Continue Buprenorphine [Butrans 10 MCG/HOUR] 1 patch TRANSDERM TU Ondansetron Odt [Zofran ODT] 4 mg PO Q8H PRN PRN Reason: Nausea MORPHINE ORAL STEVE 2mg/mL [Morphine Oral Soln 2 MG/ML] 5 mg PO Q6H PRN PRN Reason: Pain Discharge Medication List Buprenorphine [Butrans 10 MCG/HOUR] 1 patch TRANSDERM TU 11/15/22 [History] MORPHINE ORAL STEVE 2mg/mL [Morphine Oral Soln 2 MG/ML] 5 mg PO Q6H PRN 11/15/22 [History] Ondansetron Odt [Zofran ODT] 4 mg PO Q8H PRN 11/15/22 [History] Levothyroxine Sodium [Tirosint-Steve] 25 mcg PO DAILY #30 ml 11/17/22 [Rx] Follow up Appointment(s)/Referral(s): Page Stahl MD [Primary Care Provider] - 1-2 days Ambulatory/Diagnostic Orders: Miscellaneous Lab Order [LAB.AMB] Location: None Selected Activity/Diet/Wound Care/Special Instructions: Activity: as tolerated, fall precautions Diet: NPO, TPN through PICC line Special Instructions: Suggest Liquid thyroid such as Tirosint 25 mcg be started to replace her thyroid tab, that she has been off of. Continue to have GJ tube to drainage. CBC in 2 days and then weekly per hematology Discharge Disposition: TRANSFER TO SNF/ECF
[2022-11-17 09:50] LABS: Basophils # (A) 0.03 X 10*3/uL (0.00-0.10); Basophils % (A) 0.2 %; Eosinophils # (A) 0.18 X 10*3/uL (0.04-0.35); Eosinophils % (A) 1.3 %; HGB 6.6 g/dL (12.0-15.0); Immature Grans, Automated 0.8 %; Lymphocytes # (A) 0.28 X 10*3/uL (0.90-5.00); Lymphocytes % (A) 2.1 %; MCH 25.6 pg (27.0-32.0); MCHC 28.7 g/dL (32.0-37.0); MCV 89.1 fL (80.0-97.0); Mean Platelet Volume 11.1 fL (9.5-12.2); Monocytes # (A) 0.84 X 10*3/uL (0.20-1.00); Monocytes % (A) 6.2 %; NRBC Per 100 WBC 0 /100 WBCS (0.0-0.0); Neutrophils # (A) 12.05 X 10*3/uL (1.80-7.70); Neutrophils % (A) 89.4 %; Platelet Count 320 X 10*3/uL (140-440); RBC 2.58 X 10*6/uL (4.10-5.20); WBC 13.49 X 10*3/uL (4.50-10.00)
[2022-11-17 11:54] LABS: Glucose,Whole Blood 157 mg/dL (70-110)
--- NOTE | 2022-11-17 14:20 | P.CONS ---
History of Present Illness - Reason for Consult Consult date: 11/17/22 Goals of care Requesting physician: Joselo Vaca - Chief Complaint Weakness - History of Present Illness The patient is a 67-year-old female with a past medical history significant for hyperlipidemia, hypertension, hypothyroid, and metastatic renal cell carcinoma. She presented to the emergency department on 11/15/22 with complaints of weakness. She was discharged from [facility] and was so weak she could not make it isn't house. She sustained a fall and EMS was called. She denies any injuries sustained from the fall. The patient's metastatic renal cell carcinoma had been recently diagnosed. She was subsequently transferred to [facility] with patient scheduled to undergo a nephrectomy. She was noted to have extensive disease burden with metastasis throughout her peritoneum and her surgery was aborted. The patient underwent a gastrojejunostomy for strict decompression. A PICC line was also placed for TPN. Review of Systems Constitutional: Reports fatigue, Reports weakness, Denies chills, Denies fever Ears, nose, mouth and throat: Denies headache Cardiovascular: Reports shortness of breath, Denies chest pain Respiratory: Denies cough Gastrointestinal: Reports nausea, Reports vomiting Past Medical History Past Medical History: Cancer, Hyperlipidemia, Hypertension, Thyroid Disorder Additional Past Medical History / Comment(s): Kidney Cancer - on Palliative care History of Any Multi-Drug Resistant Organisms: None Reported Past Surgical History: No Surgical Hx Reported Additional Past Surgical History / Comment(s): laproscopy Past Psychological History: No Psychological Hx Reported Smoking Status: Never smoker Past Alcohol Use History: None Reported Past Drug Use History: None Reported - Past Family History Mother Family Medical History: Hypertension Medications and Allergies Home Medications Medication Instructions Recorded Confirmed Type Buprenorphine [Butrans 10 MCG/HOUR] 1 patch TRANSDERM TU 11/15/22 11/15/22 History MORPHINE ORAL STEVE 2mg/mL [Morphine 5 mg PO Q6H PRN 11/15/22 11/15/22 History Oral Soln 2 MG/ML] Ondansetron Odt [Zofran ODT] 4 mg PO Q8H PRN 11/15/22 11/15/22 History Levothyroxine Sodium [Tirosint-Steve] 25 mcg PO DAILY #30 ml 11/17/22 Rx Allergies Allergy/AdvReac Type Severity Reaction Status Date / Time acetaminophen Allergy Rash/Hives Verified 11/15/22 20:40 Physical Exam Vitals: Vital Signs Temp Pulse Pulse Resp BP BP Pulse Ox 11/17/22 13:27 98 F 82 18 107/63 96 11/17/22 13:09 98.1 F 82 16 105/62 99 11/17/22 07:15 98.3 F 87 18 111/63 96 11/17/22 01:28 99.1 F 90 18 102/59 96 11/16/22 19:18 99.2 F 90 18 113/65 95 Intake and Output 11/16/22 11/17/22 11/17/22 22:59 06:59 14:59 Intake Total 0 Output Total 300 200 Balance -300 -200 0 Intake: Blood Product 0 Rc As-1 Unit 0 [id number] Output: Drainage 300 200 Left Upper Abdomen 300 200 Other: Voiding Method Toilet Toilet # Voids 3 2 Weight 93 kg General: Well developed, well nourished. No acute distress. Chronically ill appearing HEENT: Head is atraumatic, normocephalic. Sclera are clear. Mucus membranes dry. Lungs: Respirations even and nonlabored. Abdomen/GI: Soft. G-tube with pendant drainage bag present Musculoskeletal/ Extremities: DUEÑAS, no joint deformity or swelling. No gross atrophy. + generalized weakness Skin: Warm and dry Neurologic: Awake, alert and oriented times 3. CN II-XII grossly intact. No focal deficits. Psychiatric: Appropriate mood and affect. Results CBC & Chem 7: 11/17/22 05:52 11/17/22 05:44 Labs: Abnormal Lab Results - Last 24 Hours (Table) 11/16/22 11/16/22 11/17/22 Range/Units 06:49 23:58 05:44 WBC (4.50-10.00) X 10*3/uL RBC (4.10-5.20) X 10*6/uL Hgb (12.0-15.0) g/dL Hct (37.2-46.3) % MCH (27.0-32.0) pg MCHC (32.0-37.0) g/dL RDW (11.5-14.5) % Immature Gran # (0.00-0.04) X 10*3/uL Neutrophils # (1.80-7.70) X 10*3/uL Lymphocytes # (0.90-5.00) X 10*3/uL Chloride 112 H (98-107) mmol/L BUN 22 H (7-17) mg/dL Glucose 135 H (74-99) mg/dL POC Glucose (mg/dL) 118 H (70-110) mg/dL Calcium 7.9 L (8.4-10.2) mg/dL Albumin 2.4 L (3.8-4.9) g/dL Crossmatch 11/17/22 11/17/22 11/17/22 Range/Units 05:52 05:58 11:14 WBC 13.49 H (4.50-10.00) X 10*3/uL RBC 2.58 L (4.10-5.20) X 10*6/uL Hgb 6.6 L* (12.0-15.0) g/dL Hct 23.0 L (37.2-46.3) % MCH 25.6 L (27.0-32.0) pg MCHC 28.7 L (32.0-37.0) g/dL RDW 17.0 H (11.5-14.5) % Immature Gran # 0.11 H (0.00-0.04) X 10*3/uL Neutrophils # 12.05 H (1.80-7.70) X 10*3/uL Lymphocytes # 0.28 L (0.90-5.00) X 10*3/uL Chloride (98-107) mmol/L BUN (7-17) mg/dL Glucose (74-99) mg/dL POC Glucose (mg/dL) 152 H (70-110) mg/dL Calcium (8.4-10.2) mg/dL Albumin (3.8-4.9) g/dL Crossmatch See Detail 11/17/22 Range/Units 11:53 WBC (4.50-10.00) X 10*3/uL RBC (4.10-5.20) X 10*6/uL Hgb (12.0-15.0) g/dL Hct (37.2-46.3) % MCH (27.0-32.0) pg MCHC (32.0-37.0) g/dL RDW (11.5-14.5) % Immature Gran # (0.00-0.04) X 10*3/uL Neutrophils # (1.80-7.70) X 10*3/uL Lymphocytes # (0.90-5.00) X 10*3/uL Chloride (98-107) mmol/L BUN (7-17) mg/dL Glucose (74-99) mg/dL POC Glucose (mg/dL) 157 H (70-110) mg/dL Calcium (8.4-10.2) mg/dL Albumin (3.8-4.9) g/dL Crossmatch Assessment and Plan Assessment: Symptoms * Pain - 01/22 continue morphine and Buprenorphine transdermal patch * Energy level/fatigue - low energy, generalized weakness and fatigue * SOB - some with activity * Insomnia - no * N/V - yes, continue Zofran as needed * Anxiety - no * Depression - no * Confusion - no * Agitation - no * Hallucinations - no * Appetite/weight loss - patient nothing by mouth, on TPN * Dysphagia - patient nothing by mouth * Constipation - no, LBM today * Incontinence - no * Itch - no * Cough - no Plan: Summary/Goals - met with the patient and her [id number], Tammi, who is POA. Information regarding palliative care services in philosophies was provided. The patient states that when she was discharged from [facility] she was too weak to go up her stairs and sustained a fall. She states that she did not have injuries from this fall and slowly lowered herself to the ground. She is upset stating if she is too weak to get up the stairs to her house and she should not have been sent home. The patient currently lives alone. Tammi, lives a couple blocks away. The patient states that [facility] could not find a rehab facility to accept her with TPN they decided to send her home with home health care. Both the patient and Tammi were overwhelmed. He did not think he would be able to manage the patient in her weakened state with TPN and a G-tube. Education w as provided regarding the patient's metastatic renal cell carcinoma and the trajectory of the disease. She states that she wants to live and her oncologist recommended radiation with possible chemotherapy. She states that she will consider hospice if radiation does not use the results. The patient states that she has received palliative care while admitted to [facility]. It was the best part of her day. She reports it was the only time that someone came down sat down next to her and actually listened to her. She would like to continue palliative care services in rehab if available, and then at home. Her goal is to get strong enough return home and live alone. The patient states that outpatient palliative care was set up to begin when she was discharged from [facility]. servicing manager aware. Recommendations - FRANK with palliative care Advanced Directives - yes, but not on file Code Status - full code Thank you for this consultation Norma Aabrca [facility] Palliative Care Spect[place]ink [phone] Email: [email or web address]
[2022-11-17 14:39] VITALS: RESP 16
[2022-11-17 15:20] VITALS: BP 109/66; PULSE 909; TEMP 98.6
[2022-11-17 16:25] LABS: HCT 25.1 % (34.0-46.0); HGB 7.6 gm/dL (11.4-16.0); Hypochromasia Slight; MCH 26.3 pg (25.0-35.0); MCHC 30.2 g/dL (31.0-37.0); MCV 87.2 fL (80.0-100.0); Mean Platelet Volume 8.4; Platelet Count 305 k/uL (150-450); RBC 2.88 m/uL (3.80-5.40); RDW 15.9 % (11.5-15.5); WBC 11.4 k/uL (3.8-10.6)
[2022-11-17] MEDS: MORPHINE ORAL SOLN 10 MG/5 ML CUP PO PRN (16:45)
[2022-11-17 17:33] LABS: Glucose,Whole Blood 114 mg/dL (70-110)
[2022-11-18] MEDS ORDERED: FAT EMULSION 20% 250 ML in EMPTY BAG 1 BAG IV SCH (18:00)
[2022-11-21] MEDS ORDERED: NON FORMULARY DRUG (Buprenorphine [Butrans 10 Mcg/Hour] 10 MCG/HOUR Patch) TRANSDERM SCH (09:00)
== END 2022-11-17 18:15 | DRG 843 ==
LOC: EC 17:08 → 5NMEDONC 20:25
PROVIDERS: ADMIT Internal Medicine; ATTEND Internal Medicine
PROC: 3E0336Z Introduction of Nutritional Substance into Peripheral Vein, Percutaneous Approach (ICD-10-PCS; principal; 2022-11-16)
DX: C48.0 Malignant neoplasm of retroperitoneum (principal); E43 Unspecified severe protein-calorie malnutrition; C64.9 Malignant neoplasm of unspecified kidney, except renal pelvis; C79.89 Secondary malignant neoplasm of other specified sites; R55 Syncope and collapse; Z20.822 Contact with and (suspected) exposure to COVID-19; Z51.5 Encounter for palliative care; C76.2 Malignant neoplasm of abdomen; Z68.35 Body mass index [BMI] 35.0-35.9, adult; E78.5 Hyperlipidemia, unspecified; R13.10 Dysphagia, unspecified; D64.9 Anemia, unspecified; E03.9 Hypothyroidism, unspecified; Z79.890 Hormone replacement therapy; I10 Essential (primary) hypertension; W19.XXXA Unspecified fall, initial encounter; Z53.9 Procedure and treatment not carried out, unspecified reason; Z90.5 Acquired absence of kidney; Z85.528 Personal history of other malignant neoplasm of kidney; Z93.4 Other artificial openings of gastrointestinal tract status; Z88.6 Allergy status to analgesic agent
CPT/HCPCS: 36415; 80048; 80053; 82040; 82330; 83605; 83735; 83880; 84100; 84443; 84478; 84484; 85025; 85027; 85610; 85730; 86850; 86900; 86901; 86920; 87635; 93005

== ENCOUNTER 2023-01-16 15:48 | Inpatient (IN) | payer MEDICARE, OTHER ==
--- NOTE | 2023-01-16 16:59 | ED ---
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 Patient has routine labs drawn weekly. Patient had labs drawn yesterday she was called today stating her hemoglobin was low. She was also told that her so dium and bilirubin were high. Patient feels very weak. She has increased abdominal pain compared to her normal cancer pain and has not had a bowel movement in 9 days which according to family is unusual for patient. No nausea or vomiting. No fever or chills. Patient has never undergone chemotherapy. She was supposed to start radiation tomorrow. Her oncologist is Dr. Perez. She denies any bloody stools or abnormal bleeding. She does not use blood thinners. No chest pain or shortness of breath. (Sirisha Jeong) - Related Data Home Medications Medication Instructions Recorded Confirmed Buprenorphine [Butrans 10 MCG/HOUR] 1 patch TRANSDERM TU 11/15/22 01/16/23 MORPHINE ORAL STEVE 2mg/mL [Morphine 5 mg PO Q6H PRN 11/15/22 01/16/23 Oral Soln 2 MG/ML] Ondansetron Odt [Zofran ODT] 4 mg PO Q8H PRN 11/15/22 01/16/23 Allergies Allergy/AdvReac Type Severity Reaction Status Date / Time acetaminophen Allergy Rash/Hives Verified 01/16/23 19:16 Review of Systems ROS Other: All systems not noted in ROS Statement are negative. <Sirisha Jeong - Last Filed: 01/16/23 16:47> ROS Other: All systems not noted in ROS Statement are negative. <Wade Israel - Last Filed: 01/16/23 20:23> ROS Statement: Those systems with pertinent positive or pertinent negative responses have been documented in the HPI. Past Medical History Past Medical History: Cancer, Hyperlipidemia, Hypertension, Thyroid Disorder Additional Past Medical History / Comment(s): Kidney Cancer - on Palliative care History of Any Multi-Drug Resistant Organisms: None Reported Past Surgical History: No Surgical Hx Reported Additional Past Surgical History / Comment(s): laproscopy Past Psychological History: No Psychological Hx Reported Smoking Status: Never smoker Past Alcohol Use History: None Reported Past Drug Use History: None Reported - Past Family History Mother Family Medical History: Hypertension <Sirisha Jeong - Last Filed: 01/16/23 16:47> General Exam Limitations: no limitations <Sirisha Jeong - Last Filed: 01/16/23 16:47> - General Exam Comments Initial Comments: Visual Physical Exam Vital signs reviewed General: Well-appearing, nontoxic, no acute distress. Head: Normocephalic, atraumatic Eyes: PERRLA, EOMI ENT: Airway patent Chest: Nonlabored breathing Skin: No visual rash, jaundiced Neuro: Alert and oriented 3 Musculoskeletal: No gross abnormalities (Sirisha Jeong) Course <Wade Israel - Last Filed: 01/16/23 20:23> Vital Signs 01/16/23 01/16/23 01/16/23 16:07 19:10 19:31 Temperature 97.8 F Pulse Rate 107 H 101 H Respiratory 20 20 Rate Blood Pressure 116/74 122/74 O2 Sat by Pulse 97 99 97 Oximetry 01/16/23 19:45 Temperature Pulse Rate 102 H Respiratory 24 Rate Blood Pressure 122/74 O2 Sat by Pulse 95 Oximetry - Reevaluation(s) Reevaluation #1: 01/16/23 20:18 Medical record is reviewed (Wade Israel) Reevaluation #2: 01/16/23 20:18 Patient has no change in symptoms here in the ER (Wade Israel) Reevaluation #3: 01/16/23 20:18 patient informed results and questions are answered patient does not fill comfortable with discharge weakness is increasing home pain control is diminishing (Wade Israel) Reevaluation #4: 01/16/23 20:18 Was pt. sent in by a medical professional or institution? @ -no Did you speak to anyone other than the patient for history? @ -family at bedside Did you review nursing and triage notes? @ -agree Were old charts reviewed? @ -yes and prior ED notes Differential Diagnosis? @ -no EKG interpreted by me (3pts min.)? @ -no X-rays interpreted by me (1pt min.)? @ -no CT interpreted by me (1pt min.)? @ -no U/S interpreted by me (1pt. min.)? @ -no What testing was considered but not performed? (CT, X-rays, U/S, labs)? Why? @ no What meds were considered but not given? Why? @ -no Did you discuss the management of the patient with other professionals? @ -no Did you reconcile home meds? @ -no Was smoking cessation discussed for >3mins.? @ -no Was critical care preformed (if so, how long)? @ -no Were there social determinants of health that impacted care today? How? (Homelessness, low income, unemployed, alcoholism, drug addiction, transportation, low edu. Level, literacy, decrease access to med. care, long term, rehab)? @ -no Was there de-escalation of care discussed even if they declined? (Discuss DNR or withdrawal of care, Hospice)? @ -no What co-morbidities impacted this encounter? (DM, HTN, Smoking, COPD, CAD, Cancer, CVA, Hep., AIDS, mental health diagnosis, sleep apnea, morbid obesity)? @ -no Was patient admitted / discharged? @ -admit Undiagnosed new problem with uncertain prognosis? @ -no Drug Therapy requiring intensive monitoring for toxicity (Heparin, Nitro, Insulin, Cardizem)? @ -no Were any procedures done? @ -no Diagnosis/symptom? @ -no Acute, or Chronic, or Acute on Chronic? @ -no Uncomplicated (without systemic symptoms) or Complicated (systemic symptoms)? @ -complicated Side effects of treatment? @ -no Exacerbation, Progression, or Severe Exacerbation] @ -no Poses a threat to life or bodily function? @ -yes (Wade Israel) Reevaluation #5: 01/16/23 20:21 Differential Weakness: Hypoglycemia, shock, sepsis, hyponatremia, anemia, infection, [place], ETOH, adverse medicine reaction, overdose, stroke, this is not meant to be an all-inclusive list. (Wade Israel) - Consultations Consultation #1: spoke w Fuentes who will admit this patient (Wade Israel) Medical Decision Making - Lab Data Result diagrams: 01/16/23 18:37 01/16/23 18:37 <Wade Israel - Last Filed: 01/16/23 20:23> - Medical Decision Making 67 female to the ER for evaluation patient presents today for evaluation of weakness abnormal outpatient lab tests low hemoglobin and decreased energy severe cancer pain uncontrolled cancer pain at home. (Wade Israel) - Lab Data Lab Results 01/16/23 01/16/23 01/16/23 Range/Units 18:37 18:37 18:37 WBC 25.8 H (3.8-10.6) k/uL RBC 2.65 L (3.80-5.40) m/uL Hgb 7.1 L (11.4-16.0) gm/dL Hct 23.2 L (34.0-46.0) % MCV 87.4 (80.0-100.0) fL MCH 26.7 (25.0-35.0) pg MCHC 30.5 L (31.0-37.0) g/dL RDW 16.8 H (11.5-15.5) % Plt Count 448 (150-450) k/uL MPV 7.6 Neutrophils % 94 % Lymphocytes % 2 % Monocytes % 3 % Eosinophils % 0 % Basophils % 0 % Neutrophils # 24.1 H (1.3-7.7) k/uL Lymphocytes # 0.5 L (1.0-4.8) k/uL Monocytes # 0.8 (0-1.0) k/uL Eosinophils # 0.1 (0-0.7) k/uL Basophils # 0.0 (0-0.2) k/uL Hypochromasia Moderate Anisocytosis Slight PT 11.8 (9.0-12.0) sec INR 1.1 (<1.2) APTT 21.1 L (22.0-30.0) sec Sodium 150 H (137-145) mmol/L Potassium 3.8 (3.5-5.1) mmol/L Chloride 114 H (98-107) mmol/L Carbon Dioxide 26 (22-30) mmol/L Anion Gap 10 mmol/L BUN 38 H (7-17) mg/dL Creatinine 0.96 (0.52-1.04) mg/dL Est GFR (CKD-EPI)AfAm 71 (>60 ml/min/1.73 sqM) Est GFR (CKD-EPI)NonAf 62 (>60 ml/min/1.73 sqM) Glucose 84 (74-99) mg/dL Plasma Lactic Acid Devon (0.7-2.0) mmol/L Calcium 9.2 (8.4-10.2) mg/dL Total Bilirubin 5.7 H (0.2-1.3) mg/dL AST 135 H (14-36) U/L ALT 131 H (4-34) U/L Alkaline Phosphatase 1538 H (38-126) U/L Total Protein 7.0 (6.3-8.2) g/dL Albumin 2.6 L (3.5-5.0) g/dL Lipase 273 (23-300) U/L 01/16/23 Range/Units 18:37 WBC (3.8-10.6) k/uL RBC (3.80-5.40) m/uL Hgb (11.4-16.0) gm/dL Hct (34.0-46.0) % MCV (80.0-100.0) fL MCH (25.0-35.0) pg MCHC (31.0-37.0) g/dL RDW (11.5-15.5) % Plt Count (150-450) k/uL MPV Neutrophils % % Lymphocytes % % Monocytes % % Eosinophils % % Basophils % % Neutrophils # (1.3-7.7) k/uL Lymphocytes # (1.0-4.8) k/uL Monocytes # (0-1.0) k/uL Eosinophils # (0-0.7) k/uL Basophils # (0-0.2) k/uL Hypochromasia Anisocytosis PT (9.0-12.0) sec INR (<1.2) APTT (22.0-30.0) sec Sodium (137-145) mmol/L Potassium (3.5-5.1) mmol/L Chloride (98-107) mmol/L Carbon Dioxide (22-30) mmol/L Anion Gap mmol/L BUN (7-17) mg/dL Creatinine (0.52-1.04) mg/dL Est GFR (CKD-EPI)AfAm (>60 ml/min/1.73 sqM) Est GFR (CKD-EPI)NonAf (>60 ml/min/1.73 sqM) Glucose (74-99) mg/dL Plasma Lactic Acid Devon 2.7 H* (0.7-2.0) mmol/L Calcium (8.4-10.2) mg/dL Total Bilirubin (0.2-1.3) mg/dL AST (14-36) U/L ALT (4-34) U/L Alkaline Phosphatase (38-126) U/L Total Protein (6.3-8.2) g/dL Albumin (3.5-5.0) g/dL Lipase (23-300) U/L Disposition <Sirisha Jeong - Last Filed: 01/16/23 16:47> Is patient prescribed a controlled substance at d/c from ED?: No Time of Disposition: 20:15 <Wade Israel - Last Filed: 01/16/23 20:23> Clinical Impression: Weakness, Debility, Anemia, Renal cancer, Renal mass, Cancer associated pain Disposition: ADMITTED IP TO THIS HOSP Condition: Fair Referrals: Page Stahl MD [Primary Care Provider] - 1-2 days
[2023-01-16 18:50] LABS: Anisocytosis Slight; Basophils % (A) 0 %; Eosinophils # (A) 0.1 k/uL (0-0.7); Eosinophils % (A) 0 %; HCT 23.2 % (34.0-46.0); HGB 7.1 gm/dL (11.4-16.0); Hypochromasia Moderate; Lymphocytes # (A) 0.5 k/uL (1.0-4.8); Lymphocytes % (A) 2 %; MCH 26.7 pg (25.0-35.0); MCHC 30.5 g/dL (31.0-37.0); MCV 87.4 fL (80.0-100.0); Mean Platelet Volume 7.6; Monocytes # (A) 0.8 k/uL (0-1.0); Monocytes % (A) 3 %; Neutrophils # (A) 24.1 k/uL (1.3-7.7); Neutrophils % (A) 94 %; Platelet Count 448 k/uL (150-450); RBC 2.65 m/uL (3.80-5.40); RDW 16.8 % (11.5-15.5); WBC 25.8 k/uL (3.8-10.6)
[2023-01-16 19:20] LABS: Albumin 2.6 g/dL (3.5-5.0); Calcium 9.2 mg/dL (8.4-10.2); Potassium 3.8 mmol/L (3.5-5.1); Total Bilirubin 5.7 mg/dL (0.2-1.3)
[2023-01-16 19:28] LABS: INR 1.1 (<1.2); Partial Thromboplastin Time 21.1 sec (22.0-30.0); Prothrombin Time 11.8 sec (9.0-12.0)
[2023-01-16] MEDS ORDERED: SODIUM CHLORIDE 0.9% 1,000 ML IV STA ×2 (20:06)
[2023-01-16] MEDS: MORPHINE SULFATE 4 MG/ML SYRINGE IV PRN (20:15)
[2023-01-16] MEDS ORDERED: SODIUM CHLORIDE 0.9% 1,000 ML IV SCH (20:15)
[2023-01-16] MEDS: ONDANSETRON 4 MG/2 ML VIAL IVP PRN (20:17)
[2023-01-17] MEDS: MORPHINE SULFATE 4 MG/ML SYRINGE IV PRN ×3 (00:23→10:10)
[2023-01-17] MEDS: LIDOCAINE 5% PATCH TOPICAL SCH ×2 (00:56→09:29)
--- NOTE | 2023-01-17 02:32 | P.HPIM ---
History of Present Illness H&P Date: 01/16/23 Chief Complaint: uncontrolled pain 67 year old female with metastatic renal cancer. patient was recently diagnosed with renal cancer , however, upon having surgery, her tumor found to be inoperable with mets. patient then was referred to radiation to help shrink the tumor masses, she has also been on TPN since then and GJ tube for decompression. she is coming in today , due to abnormal labs, she gets her blood work done every sunday to help monitor her TPN, and she was found to have severe anemia , and was told by her doc to go to the hospital for possible blood transfusion , she also reports severe uncontrolled pain , mainly in her right side of the abd which is chronic and left shoulder. she denies any fever, chills, sob, cough, chest pain, URI symptoms , urinary changes or bleeding Review of Systems Pertinent positives as noted in HPI. All other systems were reviewed and are negative Past Medical History Past Medical History: Cancer, Hyperlipidemia, Hypertension, Thyroid Disorder Additional Past Medical History / Comment(s): Kidney Cancer - on Palliative care History of Any Multi-Drug Resistant Organisms: None Reported Past Surgical History: No Surgical Hx Reported Additional Past Surgical History / Comment(s): laproscopy Past Psychological History: No Psychological Hx Reported Smoking Status: Never smoker Past Alcohol Use History: None Reported Past Drug Use History: None Reported - Past Family History Mother Family Medical History: Hypertension Medications and Allergies Home Medications Medication Instructions Recorded Confirmed Type Buprenorphine [Butrans 10 MCG/HOUR] 1 patch TRANSDERM TU 11/15/22 01/16/23 History MORPHINE ORAL STEVE 2mg/mL [Morphine 5 mg PO Q6H PRN 11/15/22 01/16/23 History Oral Soln 2 MG/ML] Ondansetron Odt [Zofran ODT] 4 mg PO Q8H PRN 11/15/22 01/16/23 History Allergies Allergy/AdvReac Type Severity Reaction Status Date / Time acetaminophen Allergy Rash/Hives Verified 01/16/23 19:16 Physical Exam Vitals: Vital Signs Temp Pulse Resp BP Pulse Ox 01/16/23 19:45 102 H 24 122/74 95 01/16/23 19:31 97 01/16/23 19:10 101 H 20 122/74 99 01/16/23 16:07 97.8 F 107 H 20 116/74 97 Intake and Output 01/16/23 01/16/23 01/16/23 06:59 14:59 22:59 Other: Weight 92.079 kg Constitutional: No acute distress, conversant, pleasant Eyes: jaundiced sclerae, moist conjunctiva, Pupils equal round reactive to light ENMT: NC/AT Oropharynx clear, no erythema, or exudates Neck: Supple, no masses, or JVD No carotid bruits No thyromegaly Lungs: Clear to auscultation Clear to percussion Normal respiratory effort, no accessory muscle use Cardiovascular: Heart regular in rate and rhythm, No murmurs, gallops, or rubs trace bilateral peripheral edema Abdominal: distended abd with palpable abd hard masses, Abdomen moving with respiration Normoactive bowel sounds hepatomegaly appreciated No abdominal wall hernia noted Skin: Normal temperature, tone, texture, turgor Extremities: No digital cyanosis No clubbing Pedal pulses intact and symmetrical Radial pulses intact and symmetrical No calf tenderness Psychiatric: Alert and oriented to person, place and time Appropriate affect fair judgement Neuro Muscles Strength 4/5 in all 4 extremities Sensation to light touch grossly present throughout Cranial nerves II-XII grossly intact Lymphatics: no palpable cervical or supraclavicular lymph nodes Results CBC & Chem 7: 01/16/23 18:37 01/16/23 18:37 Labs: Abnormal Lab Results - Last 24 Hours (Table) 01/16/23 01/16/23 01/16/23 Range/Units 18:37 18:37 18:37 WBC 25.8 H (3.8-10.6) k/uL RBC 2.65 L (3.80-5.40) m/uL Hgb 7.1 L (11.4-16.0) gm/dL Hct 23.2 L (34.0-46.0) % MCHC 30.5 L (31.0-37.0) g/dL RDW 16.8 H (11.5-15.5) % Neutrophils # 24.1 H (1.3-7.7) k/uL Lymphocytes # 0.5 L (1.0-4.8) k/uL APTT 21.1 L (22.0-30.0) sec Sodium 150 H (137-145) mmol/L Chloride 114 H (98-107) mmol/L BUN 38 H (7-17) mg/dL Plasma Lactic Acid Devon (0.7-2.0) mmol/L Total Bilirubin 5.7 H (0.2-1.3) mg/dL AST 135 H (14-36) U/L ALT 131 H (4-34) U/L Alkaline Phosphatase 1538 H (38-126) U/L Albumin 2.6 L (3.5-5.0) g/dL 01/16/23 Range/Units 18:37 WBC (3.8-10.6) k/uL RBC (3.80-5.40) m/uL Hgb (11.4-16.0) gm/dL Hct (34.0-46.0) % MCHC (31.0-37.0) g/dL RDW (11.5-15.5) % Neutrophils # (1.3-7.7) k/uL Lymphocytes # (1.0-4.8) k/uL APTT (22.0-30.0) sec Sodium (137-145) mmol/L Chloride (98-107) mmol/L BUN (7-17) mg/dL Plasma Lactic Acid Devon 2.7 H* (0.7-2.0) mmol/L Total Bilirubin (0.2-1.3) mg/dL AST (14-36) U/L ALT (4-34) U/L Alkaline Phosphatase (38-126) U/L Albumin (3.5-5.0) g/dL Assessment and Plan Assessment: 67 year old female with metastatic renal cancer, coming in due to abnormal labs, I discussed the case with ED doc, and I accepted the admission for close monitoring of Hgb, and pain control , with anticipated length of stay < 2 midnights metastatic renal cancer chronic anemia, denies any bleeding , Hgb 7.1 intractable abd and shoulder pain plan pain control with lidocaine patch and morphine 4 mg IVP q4 hrs PRN pain oncology consult for further recommendation GJ tube care, drain to gravity , no bleeding TPN nutrition eval IVF hydration with normal saline transaminitis , chronic and worsening check liver US check bilirubin differential , rule out obstructive disease lactic acidosis , improved hypernatremia 150 continue with D5% 0.45% NS at 75 cc per hour follow up Na BUN 38 , Cr 0.96 , reflects some dehydration leukocytosis 25 , acute on chronic unidentifiable acute infectious process follow up cultures monitor vital signs for fever no antibiotics for now DVT PPX lovenox 40 mg sc daily No code
[2023-01-17] MEDS: DEXTROSE 5%-0.45% NACL 1,000 ML IV SCH ×2 (03:39→15:00)
[2023-01-17 06:58] LABS: Amorphous Sediment,Urine Rare /hpf; Appearance,Urine Turbid (Clear); Bacteria,Urine Occasional /hpf; Bilirubin,Urine 2+ (Negative); Blood,Urine Negative (Negative); Color,Urine Dark Brown; Glucose,Urine (UA) Negative (Negative); Ketones,Urine Negative (Negative); Leukocyte Esterase,Urine Negative (Negative); Mucus,Urine Rare /hpf; Nitrite,Urine Negative (Negative); PH, Urine 5.5 (5.0-8.0); Protein,Urine 1+ (Negative); RBC,Urine 2 /hpf (0-5); Specific Gravity,Urine 1.018 (1.001-1.035); Squamous Epithelial Cell,Urine 2 /hpf (0-4); Urobilinogen,Urine <2.0 mg/dL (<2.0); WBC,Urine 7 /hpf (0-5)
--- NOTE | 2023-01-17 07:59 | US ---
EXAMINATION TYPE: US liver DATE OF EXAM: 01/17/2023 COMPARISON: PET CT December 22 2022 and older studies. CLINICAL HISTORY: rule out obstruction. Jaundice, pain. History of metastatic renal cell cancer. TECHNIQUE: Multiple sonographic images of the right upper quadrant are obtained. FINDINGS: EXAM MEASUREMENTS: Liver Length: 15.3 cm Gallbladder Wall: 0.2 cm CBD: 1.5 cm HOT BOX SPOTTER NOTES: Large pt body habitus, immobile, difficult exam Pancreas: Obscured by bowel gas Liver: Limited views, Heterogeneous Gallbladder: Small gallstones with sludge Evidence for sonographic Lew's sign: Yes CBD: Dilated with possible ductal dilation within liver Right Kidney: Unable to visualize normal right kidney, large, solid mass within right renal fossa- p t has known renal CA= 19.7 x 14.0 x 12.0 cm Exam suboptimal due to body habitus along with limited mobility of the patient. Pancreas suboptimally evaluated on images saved. Visualized liver remains heterogeneously hyperechoic. Gallbladder has int ernal mobile small gallstones. No pericholecystic fluid or abnormal wall thickening. Common bile duct now dilated at 15 mm which is new finding from most recent studies. Large mass or neoplasm obscures normal right kidney. IMPRESSION: New moderate biliary dilatation presumed from local neoplastic progression causing CBD ob struction.
[2023-01-17 08:26] LABS: ALT 138 U/L (4-34); AST 152 U/L (14-36); African American GFR (CKD) 63 (>60 ml/min/1.73 sqM); Albumin 2.7 g/dL (3.5-5.0); Albumin/Globulin Ratio 0.6; Anion Gap 13 mmol/L; Bilirubin, Conjugated 3.1 mg/dL (0.0-0.3); Bilirubin,Unconjugated 0.9 mg/dL (0.0-1.1); Blood Urea Nitrogen 36 mg/dL (7-17); Carbon Dioxide 25 mmol/L (22-30); Chloride 113 mmol/L (98-107); Globulin 4.4 g/dL; Glucose 85 mg/dL (74-99); Lipase 210 U/L (23-300); Non-African American GFR(CKD) 55 (>60 ml/min/1.73 sqM); Potassium 3.8 mmol/L (3.5-5.1); Sodium 151 mmol/L (137-145); Total Bilirubin 6.1 mg/dL (0.2-1.3); Total Protein 7.1 g/dL (6.3-8.2)
[2023-01-17 08:39] LABS: Anisocytosis Slight; Basophils % (A) 0 %; Eosinophils # (A) 0.1 k/uL (0-0.7); Eosinophils % (A) 1 %; HCT 22.8 % (34.0-46.0); Hypochromasia Marked; Lymphocytes # (A) 0.6 k/uL (1.0-4.8); Lymphocytes % (A) 2 %; MCH 27.2 pg (25.0-35.0); MCHC 30.6 g/dL (31.0-37.0); MCV 88.9 fL (80.0-100.0); Mean Platelet Volume 7.7; Monocytes # (A) 0.8 k/uL (0-1.0); Monocytes % (A) 3 %; Neutrophils # (A) 25.5 k/uL (1.3-7.7); Neutrophils % (A) 94 %; Platelet Count 504 k/uL (150-450); RBC 2.56 m/uL (3.80-5.40); RDW 16.8 % (11.5-15.5)
[2023-01-17 08:46] LABS: WBC 27.1 k/uL (3.8-10.6)
[2023-01-17 10:03] LABS: Alkaline Phosphatase 1607 U/L (38-126)
[2023-01-17] MEDS: ENOXAPARIN 40 MG/0.4 ML SYRINGE SQ SCH (10:07)
[2023-01-17] MEDS ORDERED: IOPAMIDOL CONTRAST (ORAL USE) VIAL PO PRN (12:01)
--- NOTE | 2023-01-17 13:33 | US ---
EXAMINATION TYPE: US venous doppler duplex LE RT DATE OF EXAM: 01/17/2023 12:56 PM COMPARISON: NONE CLINICAL HISTORY: Unilateral swelling, right lower extremity. History of metastatic renal cell cancer . SIDE PERFORMED: Right TECHNIQUE: The lower extremity deep venous system is examined utilizing real time linear array sonog holly with graded compression, doppler sonography and color-flow sonography. VESSELS IMAGED: Common Femoral Vein Deep Femoral Vein Greater Saphenous Vein * Femoral Vein Popliteal Vein Small Saphenous Vein * Proximal Calf Veins (* superficial vessels) Right Leg: Negative for DVT. Limited due to patients ability to tolerate compression in the femoral vein mid/distal section Grayscale, color doppler, spectral doppler imaging performed of the deep veins of the right lower ext remity. There is normal flow, compressibility, vascular waveforms on images obtained. IMPRESSION: Slightly suboptimal study without acute DVT in the right lower extremity.
--- NOTE | 2023-01-17 15:21 | P.CONS ---
History of Present Illness - Reason for Consult Consult date: 01/17/23 [facility] Requesting physician: Wade Israel - Chief Complaint weakness, anemia - History of Present Illness Mr. 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 Pt was initially seen [facility] 09/05, c/o flank pain, nausea and vomiting, CT AP 08/16/2022 noted 10.4 x 9.4 x 10.7 cm dominant mass within the right kidney displacing the IVC medially. MRI 08/22/2022 noted heterogeneous right renal mass measuring 11.2 x 9.2 x 11.5 cm. An area near the right adrenal gland was felt to be separate from the dominant mass measuring 5.1 x 4.5 cm and was felt to be either lymph node or extension of large tumor. Transferred for surgery to [facility] after Urology evaluation. Nephrectomy was attempted on 09/28/2022. The right renal mass was noted to be densely adherent and possibly invading the colonic mesentery, duodenum, vena cava, possibly the pancreas, and approaching the SMA. Dr. Reaves of surgical oncology was brought to the OR for potential resectability of the mass. Given the locally advanced disease, it was determined she would likely require a Whipple procedure and caval resection. Partial nephrectomy was aborted and biopsy of the renal mass was pursued instead. Pathology was noted to be consistent with malignant sarcomatoid neoplasm. This was noted to consist of a spindle cell neoplasm with multinucleated cells and focal rhabdoid morphology being seen. MDM2 stain was equivocal with FISH being negative. 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 She unfortunately again presented to [facility] on 10/25/2022 with increased abdominal pain, nausea, and vomiting. She was found to have evidence of SBO. Palliative radiation therapy to the renal mass was initiated. She received a total of 8 radiation treatments inpatient, with the last one being on 11/15/2022. She also had palliative gastrostomy tube for decompression placed during her admission. She was started on TPN and subsequently discharged home. Plan was to transition her care to us per patient preference. She ended up being admitted to [facility] in November where we 1st saw her in consult. She was admitted for weakness, when she got home from [facility] she was unable to make it up 3 steps into her house. She had a friend called EMS who brought her to the hospital. Patient has been seen in the office for her first visit 01/09. Treatment options were discussed. 12/21 she had a immunotherapy education session. She was seen on 01/04 for PET results-increased SUV in rt kidney 30.7, 15.5x12.2x12.4cm, rt adrenal increased in size, LAD 6.1x4.7, multiple bone mets-worst in the lt clavicle, 4.1x2.7, SUV 27.5, lt prox humerous SUV 6.8, rt sacrum SUV 8, rt post acetabulum SUV 6.5 and T9 SUV 7. It was explained to her at that time that intent of treatment is palliation of symptoms and prolongation of life. At that time she reported that she wanted to do XRT to painful bone mets in left shoulder 1st. She had Radiation simulation on Sunday, she was due to start today. Patient is currently admitted with weakness, states she was told to come to the hospital for blood transfusion-There is a lab in the system a hemoglobin of 6.7, the next hemoglobin was 7.1 and the most recent one is 7.0. Patient has not received a transfusion yet. Patient is currently on palliative care. She is reporting uncontrolled pain at this time. Patient has a very difficult time d iscussing her cancer diagnosis and if she wants to pursue treatment. She denies fevers, vomiting, her right lower extremity has been swollen. Labs reveal elevated WBC/ANC, platelets elevated, significantly increased alkaline phosphatase, increased LFTs as well as creatinine. Ultrasound of the liver report reads heterogenous, hyperechoic liver, gallbladder with gallstones, common bile duct dilation 15 mm new finding, right neoplasm 19.7 x 14 x 12 cm Review of Systems 10 point ROS is neg except as stated in HPI Past Medical History Past Medical History: Cancer, Hyperlipidemia, Hypertension, Thyroid Disorder Additional Past Medical History / Comment(s): Kidney Cancer - on Palliative care History of Any Multi-Drug Resistant Organisms: None Reported Past Surgical History: No Surgical Hx Reported Additional Past Surgical History / Comment(s): laproscopy Past Anesthesia/Blood Transfusion Reactions: No Reported Reaction Past Psychological History: No Psychological Hx Reported Smoking Status: Never smoker Past Alcohol Use History: None Reported Past Drug Use History: None Reported - Past Family History Mother Family Medical History: Hypertension Medications and Allergies Home Medications Medication Instructions Recorded Confirmed Type Buprenorphine [Butrans 10 MCG/HOUR] 1 patch TRANSDERM TU 11/15/22 01/16/23 History MORPHINE ORAL STEVE 2mg/mL [Morphine 5 mg PO Q6H PRN 11/15/22 01/16/23 History Oral Soln 2 MG/ML] Ondansetron Odt [Zofran ODT] 4 mg PO Q8H PRN 11/15/22 01/16/23 History Allergies Allergy/AdvReac Type Severity Reaction Status Date / Time acetaminophen Allergy Rash/Hives Verified 01/16/23 19:16 Physical Exam Vitals: Vital Signs Temp Pulse Resp BP Pulse Ox 01/17/23 10:08 95 18 110/59 96 01/17/23 10:00 97 16 111/57 99 01/17/23 09:00 98 116/58 01/17/23 08:00 98 108/57 93 L 01/17/23 07:52 101 H 18 108/57 93 L 01/17/23 07:00 102 H 111/85 97 01/17/23 06:00 103 H 22 114/64 95 01/17/23 05:00 103 H 16 112/74 95 01/17/23 02:00 103 H 16 103/51 97 01/17/23 00:00 100 17 120/67 96 01/16/23 23:56 98.4 F 98 16 120/67 98 01/16/23 23:51 99 16 120/67 97 01/16/23 23:00 101 H 18 112/57 95 01/16/23 22:00 98 19 104/59 95 01/16/23 21:30 100 17 106/57 95 01/16/23 21:00 100 18 107/58 93 L 01/16/23 20:30 99 14 108/57 96 01/16/23 20:15 101 H 13 115/61 95 01/16/23 20:00 102 H 13 109/62 98 01/16/23 19:45 102 H 24 122/74 95 01/16/23 19:31 97 01/16/23 19:10 101 H 20 122/74 99 01/16/23 16:07 97.8 F 107 H 20 116/74 97 Intake and Output 01/16/23 01/17/23 01/17/23 22:59 06:59 14:59 Other: Weight 92.079 kg - Constitutional General appearance: cooperative, disheveled, no acute distress, obese - EENT Eyes: anicteric sclerae, EOMI ENT: hearing grossly normal, normal oropharynx (dry mucus membranes) - Neck Neck: no lymphadenopathy - Respiratory Respiratory: bilateral: diminished - Cardiovascular Rhythm: regular Heart sounds: normal: S1, S2 Abnormal Heart Sounds: no systolic murmur, no diastolic murmur, no rub, no S3 Gallop, no S4 Gallop, no click, no other leg Peripheral Edema: right: 2+, left: Trace - Gastrointestinal General gastrointestinal: no absent bowel sounds, no decreased bowel sounds, no distended, hepatomegaly, no hyperactive bowel sounds, normal bowel sounds, no organomegaly, no rigid, no scaphoid, soft, no splenomegaly, no tenderness, no umbilical hernia, no ventral hernia - Integumentary Integumentary: pale - Neurologic Neurologic: CNII-XII intact - Musculoskeletal Musculoskeletal: generalized weakness - Psychiatric Psychiatric: A&O x's 3, appropriate affect, intact judgment & insight Results CBC & Chem 7: 01/17/23 06:36 01/17/23 06:36 Labs: Abnormal Lab Results - Last 24 Hours (Table) 01/16/23 01/16/23 01/16/23 Range/Units 06:15 18:37 18:37 WBC 25.8 H (3.8-10.6) k/uL RBC 2.65 L (3.80-5.40) m/uL Hgb 7.1 L (11.4-16.0) gm/dL Hct 23.2 L (34.0-46.0) % MCHC 30.5 L (31.0-37.0) g/dL RDW 16.8 H (11.5-15.5) % Plt Count (150-450) k/uL Neutrophils # 24.1 H (1.3-7.7) k/uL Lymphocytes # 0.5 L (1.0-4.8) k/uL APTT 21.1 L (22.0-30.0) sec Sodium (137-145) mmol/L Chloride (98-107) mmol/L BUN (7-17) mg/dL Creatinine (0.52-1.04) mg/dL Plasma Lactic Acid Devon (0.7-2.0) mmol/L Total Bilirubin (0.2-1.3) mg/dL Conjugated Bilirubin (0.0-0.3) mg/dL AST (14-36) U/L ALT (4-34) U/L Alkaline Phosphatase (38-126) U/L Albumin (3.5-5.0) g/dL Urine Appearance Turbid H (Clear) Urine Protein 1+ H (Negative) Urine Bilirubin 2+ H (Negative) Urine WBC 7 H (0-5) /hpf Amorphous Sediment Rare H (None) /hpf Urine Bacteria Occasional H (None) /hpf Urine Mucus Rare H (None) /hpf 01/16/23 01/16/23 01/17/23 Range/Units 18:37 18:37 06:36 WBC 27.1 H (3.8-10.6) k/uL RBC 2.56 L (3.80-5.40) m/uL Hgb 7.0 L (11.4-16.0) gm/dL Hct 22.8 L (34.0-46.0) % MCHC 30.6 L (31.0-37.0) g/dL RDW 16.8 H (11.5-15.5) % Plt Count 504 H (150-450) k/uL Neutrophils # 25.5 H (1.3-7.7) k/uL Lymphocytes # 0.6 L (1.0-4.8) k/uL APTT (22.0-30.0) sec Sodium 150 H (137-145) mmol/L Chloride 114 H (98-107) mmol/L BUN 38 H (7-17) mg/dL Creatinine (0.52-1.04) mg/dL Plasma Lactic Acid Devon 2.7 H* (0.7-2.0) mmol/L Total Bilirubin 5.7 H (0.2-1.3) mg/dL Conjugated Bilirubin (0.0-0.3) mg/dL AST 135 H (14-36) U/L ALT 131 H (4-34) U/L Alkaline Phosphatase 1538 H (38-126) U/L Albumin 2.6 L (3.5-5.0) g/dL Urine Appearance (Clear) Urine Protein (Negative) Urine Bilirubin (Negative) Urine WBC (0-5) /hpf Amorphous Sediment (None) /hpf Urine Bacteria (None) /hpf Urine Mucus (None) /hpf 01/17/23 Range/Units 06:36 WBC (3.8-10.6) k/uL RBC (3.80-5.40) m/uL Hgb (11.4-16.0) gm/dL Hct (34.0-46.0) % MCHC (31.0-37.0) g/dL RDW (11.5-15.5) % Plt Count (150-450) k/uL Neutrophils # (1.3-7.7) k/uL Lymphocytes # (1.0-4.8) k/uL APTT (22.0-30.0) sec Sodium 151 H (137-145) mmol/L Chloride 113 H (98-107) mmol/L BUN 36 H (7-17) mg/dL Creatinine 1.07 H (0.52-1.04) mg/dL Plasma Lactic Acid Devon (0.7-2.0) mmol/L Total Bilirubin 6.1 H (0.2-1.3) mg/dL Conjugated Bilirubin 3.1 H (0.0-0.3) mg/dL AST 152 H (14-36) U/L ALT 138 H (4-34) U/L Alkaline Phosphatase 1607 H (38-126) U/L Albumin 2.7 L (3.5-5.0) g/dL Urine Appearance (Clear) Urine Protein (Negative) Urine Bilirubin (Negative) Urine WBC (0-5) /hpf Amorphous Sediment (None) /hpf Urine Bacteria (None) /hpf Urine Mucus (None) /hpf Comments: liver US report reviewed Assessment and Plan (1) Weakness Current Visit: Yes Status: Acute Priority: High Code(s): R53.1 - WEAKNESS SNOMED Code(s): 79288912 (2) Anemia Current Visit: Yes Status: Acute Priority: High Code(s): D64.9 - ANEMIA, UNSPECIFIED SNOMED Code(s): 126391028 (3) Renal cancer Current Visit: Yes Status: Acute Priority: High Code(s): C64.9 - MALIGNANT NEOPLASM OF UNSP KIDNEY, EXCEPT RENAL PELVIS SNOMED Code(s): 106963417 Plan: Weakness -Multifactorial -Anemia -Malignancy, concerns for progression of malignancy will also contribute to we akness. This was discussed with patient. Anemia -Secondary to malignancy, inability to mobilize iron properly for bone marrow utilization -Discussed with patient anemia is likely contributing to her weakness. She has at this degree of anemia since 11/06. Please transfuse for hemoglobin less than 7. Anemia workup was done 1 month ago, anemia of inflammation, Inflammation from malignancy is preventing mobilization and binding of iron properly so, additional iron at this time will not be helpful. Renal cell carcinoma -Patient is currently on palliative care -Ultrasound results suggestive of possible disease progression in the liver. Wanted to do a CT scan of the abdomen and pelvis, patient refused oral and IV contrast. We also were contacted by Radiology because it was reported to them that patient was on palliative care and not pursuing any treatment. CT scan canceled at this time. -Encouraged patient to speak with her regional clinical research associate as well as her caregivers about how she would like to proceed forward. -Patient is aware of the treatment options. -Patient does have an appointment to start immunotherapy in February if she wants to. Asked patient if she felt that she was going to be able to get stronger, she is not certain. Reviewed with her concerns that malignancy will progress without treatment, which will in turn continue to make her physically weaker and weaker and she will not be able to rehabilitate. She verbalized understanding. We will remain available if there are any other questions or concerns. Recommend palliative care. If patient does not choose to seek treatment for cancer then hospice care would be most appropriate as she will need that type of support for treatment of her symptoms. attests: I seen and examined patient, performed H&P, developed impression and plan of care. Discussed with dictator. Agree with dictation, documented as a scribe.
[2023-01-17 17:44] VITALS: BMI 35.4
--- NOTE | 2023-01-17 17:45 | P.PN ---
Subjective Progress Note Date: 01/17/23 Hospital course: Patient is a very pleasant 67-year-old female with a past medical history of metastatic renal cancer currently on palliative care. She presented to the emergency department secondary to findings of uncontrolled pain, weakness, and abnormal labs. Upon arrival to the emergency department patient underwent full evaluation. CBC revealed significant leukocytosis with WBC count of 25.8 predominantly neutrophilic with neutrophils of 24.1, normocytic anemia with hemoglobin of 7.1. BMP revealing hypernatremia with sodium of 150 and hyperchloremia with chloride of 114 with prerenal azotemia with BUN of 38. Patient also with lactic acidosis with plasma lactic acid of 2.7. Liver profile revealing hyperbilirubinemia with bilirubin of 5.7 and transaminitis with AST of 135, ALT of 131, an alkaline phosphatase of 1538. Patient was admitted under our services with consultation to oncology and palliative care. Liver ultrasound completed and reviewed. Radiology report stating new moderate biliary dilation presumed from local neoplastic progression causing CBD obstruction. Order was initially placed for CT abdomen and pelvis to further evaluate CBD obstruction and possible metastatic progression, however patient declined at this time. P atient meeting with palliative care to determine plans for palliative versus hospice care at this time. Physical exam: Vital signs reviewed and stable. General: Nontoxic, no distress and appears stated age. Derm: Skin warm and dry, normal coloration for ethnicity. Head: Atraumatic, normocephalic and symmetric. Eyes: EOMs intact, no lid lag, and anicteric sclera Mouth: no lip lesions, mucus membranes moist Cardiovascular: regular rate and rhythm with normal S1S2, no murmur, positive posterior tibial pulses bilaterally, and cap refill < 2 seconds. Lungs: Respirations even, regular, and unlabored on room air. Lungs CTA bilaterally, no rhonchi, no rales, no wheezing, and no accessory muscle usage. Abdominal: soft, nontender to palpation, no guarding, no appreciable organomegaly Ext: ROM intact. No gross muscle atrophy, no edema, no contractures Neuro: Speech clear, face symmetrical and CN II-XII grossly intact with no noted focal neuro deficits Psych: Alert and oriented to person, place, time, and situation. Appropriate and pleasant affect. Assessment and Plan of Care: Metastatic renal cancer Chronic anemia, secondary to metastatic cancer Leukocytosis predominantly neutrophilic, secondary to metastatic cancer Intractable abdominal pain and left shoulder pain, secondary to metastatic cancer Transaminitis, secondary to metastatic cancer -Liver ultrasound completed and reviewed. Radiology report stating new moderate biliary dilation presumed from local neoplastic progression causing CBD obstruction. -Oncology following, ordered computed tomography scan of abdomen/pelvis however patient declined now 1 to pursue any treatment at this time. 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 -Symptomatic care and pain management -Palliative care consulted regarding palliative versus hospice care. -Order placed for nutrition services for TPN evaluation -Continue IV fluid hydration with D5.45 percent normal saline. Hypernatremia Hyperchloremia Prerenal azotemia -Morning labs reviewed. BMP revealing hypernatremia with sodium of 151, hyperchloremia with chloride of 113, and prerenal azotemia with BUN of 36 and creatinine of 1.07 and GFR 55. -0.9% normal saline was just discontinued and patient started on D5 0.45% at 100 mL's per hour. -Order placed for repeat BMP this afternoon and again tomorrow morning for close follow-up of labs. Lactic acidosis, resolved with IV fluid hydration. CODE STATUS: DO NOT RESUSCITATE/DO NOT INTUBATE DVT prophylaxis: Lovenox Anticipated discharge date: Clinical course to determine Anticipated discharge place: Home Patient was seen independently by Nurse Pracitioner. This document was prepared using [employer] dictation software. Please allow for errors in draw frame runner, while rare they do occur. Say Salmeron NP rendered care for this patient independently, reviewed the findings and plan as documented in the note above. I did not physically speak with or examine the patient on this date. Objective - Vital Signs Vital signs: Vital Signs Temp 98.4 F 01/16/23 23:56 Pulse 95 01/17/23 10:08 Resp 18 01/17/23 10:08 BP 110/59 01/17/23 10:08 Pulse Ox 96 01/17/23 10:08 FiO2 Intake & Output 01/16/23 01/17/23 01/17/23 18:59 06:59 18:59 Weight 92.079 kg - Labs CBC & Chem 7: 01/22/23 05:53 01/22/23 05:53 Labs: Abnormal Lab Results - Last 24 Hours (Table) 01/16/23 01/16/23 01/16/23 Range/Units 06:15 18:37 18:37 WBC 25.8 H (3.8-10.6) k/uL RBC 2.65 L (3.80-5.40) m/uL Hgb 7.1 L (11.4-16.0) gm/dL Hct 23.2 L (34.0-46.0) % MCHC 30.5 L (31.0-37.0) g/dL RDW 16.8 H (11.5-15.5) % Plt Count (150-450) k/uL Neutrophils # 24.1 H (1.3-7.7) k/uL Lymphocytes # 0.5 L (1.0-4.8) k/uL APTT 21.1 L (22.0-30.0) sec Sodium (137-145) mmol/L Chloride (98-107) mmol/L BUN (7-17) mg/dL Creatinine (0.52-1.04) mg/dL Plasma Lactic Acid Devon (0.7-2.0) mmol/L Total Bilirubin (0.2-1.3) mg/dL Conjugated Bilirubin (0.0-0.3) mg/dL AST (14-36) U/L ALT (4-34) U/L Alkaline Phosphatase (38-126) U/L Albumin (3.5-5.0) g/dL Urine Appearance Turbid H (Clear) Urine Protein 1+ H (Negative) Urine Bilirubin 2+ H (Negative) Urine WBC 7 H (0-5) /hpf Amorphous Sediment Rare H (None) /hpf Urine Bacteria Occasional H (None) /hpf Urine Mucus Rare H (None) /hpf 01/16/23 01/16/23 01/17/23 Range/Units 18:37 18:37 06:36 WBC 27.1 H (3.8-10.6) k/uL RBC 2.56 L (3.80-5.40) m/uL Hgb 7.0 L (11.4-16.0) gm/dL Hct 22.8 L (34.0-46.0) % MCHC 30.6 L (31.0-37.0) g/dL RDW 16.8 H (11.5-15.5) % Plt Count 504 H (150-450) k/uL Neutrophils # 25.5 H (1.3-7.7) k/uL Lymphocytes # 0.6 L (1.0-4.8) k/uL APTT (22.0-30.0) sec Sodium 150 H (137-145) mmol/L Chloride 114 H (98-107) mmol/L BUN 38 H (7-17) mg/dL Creatinine (0.52-1.04) mg/dL Plasma Lactic Acid Devon 2.7 H* (0.7-2.0) mmol/L Total Bilirubin 5.7 H (0.2-1.3) mg/dL Conjugated Bilirubin (0.0-0.3) mg/dL AST 135 H (14-36) U/L ALT 131 H (4-34) U/L Alkaline Phosphatase 1538 H (38-126) U/L Albumin 2.6 L (3.5-5.0) g/dL Urine Appearance (Clear) Urine Protein (Negative) Urine Bilirubin (Negative) Urine WBC (0-5) /hpf Amorphous Sediment (None) /hpf Urine Bacteria (None) /hpf Urine Mucus (None) /hpf 01/17/23 Range/Units 06:36 WBC (3.8-10.6) k/uL RBC (3.80-5.40) m/uL Hgb (11.4-16.0) gm/dL Hct (34.0-46.0) % MCHC (31.0-37.0) g/dL RDW (11.5-15.5) % Plt Count (150-450) k/uL Neutrophils # (1.3-7.7) k/uL Lymphocytes # (1.0-4.8) k/uL APTT (22.0-30.0) sec Sodium 151 H (137-145) mmol/L Chloride 113 H (98-107) mmol/L BUN 36 H (7-17) mg/dL Creatinine 1.07 H (0.52-1.04) mg/dL Plasma Lactic Acid Devon (0.7-2.0) mmol/L Total Bilirubin 6.1 H (0.2-1.3) mg/dL Conjugated Bilirubin 3.1 H (0.0-0.3) mg/dL AST 152 H (14-36) U/L ALT 138 H (4-34) U/L Alkaline Phosphatase 1607 H (38-126) U/L Albumin 2.7 L (3.5-5.0) g/dL Urine Appearance (Clear) Urine Protein (Negative) Urine Bilirubin (Negative) Urine WBC (0-5) /hpf Amorphous Sediment (None) /hpf Urine Bacteria (None) /hpf Urine Mucus (None) /hpf
[2023-01-17 19:21] LABS: African American GFR (CKD) 51 (>60 ml/min/1.73 sqM); Anion Gap 8 mmol/L; Blood Urea Nitrogen 37 mg/dL (7-17); Calcium 8.6 mg/dL (8.4-10.2); Carbon Dioxide 28 mmol/L (22-30); Chloride 112 mmol/L (98-107); Glucose 94 mg/dL (74-99); Magnesium 2.5 mg/dL (1.6-2.3); Non-African American GFR(CKD) 44 (>60 ml/min/1.73 sqM); Phosphorus 4.5 mg/dL (2.5-4.5); Potassium 3.6 mmol/L (3.5-5.1); Sodium 148 mmol/L (137-145)
[2023-01-17] MEDS ORDERED: [UNRECOGNIZED DRUG - REMARK] IV SCH ×6 (20:30)
[2023-01-18] MEDS: DEXTROSE 5%-0.45% NACL 1,000 ML IV SCH ×2 (01:25→14:56)
[2023-01-18 02:00] LABS: Glucose,Whole Blood 135 mg/dL (70-110)
[2023-01-18] MEDS: FAT EMULSION 20% 250 ML in EMPTY BAG 1 BAG IV SCH (05:12)
[2023-01-18 05:41] LABS: Glucose,Whole Blood 148 mg/dL (70-110)
[2023-01-18] MEDS: MORPHINE SULFATE 4 MG/ML SYRINGE IV PRN (08:00)
[2023-01-18 08:43] LABS: Ionized Calcium 5.4 mg/dL (4.5-5.3)
[2023-01-18 09:04] LABS: ALT 107 U/L (4-34); AST 98 U/L (14-36); African American GFR (CKD) 52 (>60 ml/min/1.73 sqM); Albumin 2.2 g/dL (3.5-5.0); Albumin/Globulin Ratio 0.6; Alkaline Phosphatase 1428 U/L (38-126); Anion Gap 8 mmol/L; Blood Urea Nitrogen 33 mg/dL (7-17); Calcium 8.4 mg/dL (8.4-10.2); Carbon Dioxide 26 mmol/L (22-30); Chloride 113 mmol/L (98-107); Globulin 3.8 g/dL; Glucose 158 mg/dL (74-99); Magnesium 2.4 mg/dL (1.6-2.3); Non-African American GFR(CKD) 45 (>60 ml/min/1.73 sqM); Phosphorus 3.5 mg/dL (2.5-4.5); Potassium 3.2 mmol/L (3.5-5.1); Sodium 147 mmol/L (137-145); Total Bilirubin 5.9 mg/dL (0.2-1.3)
[2023-01-18] MEDS: ENOXAPARIN 40 MG/0.4 ML SYRINGE SQ SCH (10:11)
[2023-01-18] MEDS: LIDOCAINE 5% PATCH TOPICAL SCH (10:11)
[2023-01-18 11:10] LABS: Glucose,Whole Blood 150 mg/dL (70-110)
[2023-01-18 11:31] LABS: HCT 18.5 % (37.2-46.3); HGB 5.3 g/dL (12.0-15.0); MCH 25.6 pg (27.0-32.0); MCHC 28.6 g/dL (32.0-37.0); MCV 89.4 fL (80.0-97.0); Mean Platelet Volume 10.5 fL (9.5-12.2); NRBC Per 100 WBC 0 /100 WBCS (0.0-0.0); Platelet Count 402 X 10*3/uL (140-440); RBC 2.07 X 10*6/uL (4.10-5.20); RDW 18.6 % (11.5-14.5); WBC 28.26 X 10*3/uL (4.50-10.00)
[2023-01-18] MEDS ORDERED: HYDROmorphone 0.5 MG/0.5 ML SYRINGE IM PRN (13:29)
[2023-01-18] MEDS ORDERED: MD COMMUNICATION TO PHARMACY 1 EACH MISC PO PRN (13:32)
[2023-01-18] MEDS ORDERED: bisacodyL 10 MG SUPP RECTAL PRN (13:41)
[2023-01-18] MEDS: BUPRENORPHINE TRANSDERM SCH ×2 (14:04→14:57)
--- NOTE | 2023-01-18 14:30 | P.CONS ---
History of Present Illness - Reason for Consult Consult date: 01/18/23 Goals of care Requesting physician: Marcia Francis - History of Present Illness The patient is a 67-year-old female with a past medical history of hyperlipidemia, hypertension, hypothyroid, and metastatic renal cancer. She presented to the emergency department on 01/16/23 with uncontrolled pain, we akness, and abnormal labs. CBC revealed significant leukocytosis with WBC count of 25.8 predominantly neutrophilic with neutrophils of 24.1, normocytic anemia with hemoglobin of 7.1. BMP revealing hypernatremia with sodium of 150 and hyperchloremia with chloride of 114 with prerenal azotemia with BUN of 38. Patient also with lactic acidosis with plasma lactic acid of 2.7. Liver profile revealing hyperbilirubinemia with bilirubin of 5.7 and transaminitis with AST of 135, ALT of 131, an alkaline phosphatase of 1538. Liver ultrasound completed and reviewed. Radiology report stating new moderate biliary dilation presumed from local neoplastic progression causing CBD obstruction. Oncology saw the patient on 01/04 for PET results-increased SUV in rt kidney, rt adrenal increased in size, multiple bone mets-worst in the lt clavicle, lt prox humerous, rt sacrum, rt post acetabulum and T9. It was explained to her at that time that intent of treatment is palliation of symptoms and prolongation of life. At that time she reported that she wanted to do XRT to painful bone mets in left shoulder 1st. Review of Systems Constitutional: Reports as per HPI, Reports weakness, Denies chills, Denies fever Past Medical History Past Medical History: Cancer, Hyperlipidemia, Hypertension, Thyroid Disorder Additional Past Medical History / Comment(s): Kidney Cancer - on Palliative care History of Any Multi-Drug Resistant Organisms: None Reported Past Surgical History: No Surgical Hx Reported Additional Past Surgical History / Comment(s): laproscopy Past Anesthesia/Blood Transfusion Reactions: No Reported Reaction Past Psychological History: No Psychological Hx Reported Smoking Status: Never smoker Past Alcohol Use History: None Reported Past Drug Use History: None Reported - Past Family History Mother Family Medical History: Hypertension Medications and Allergies Home Medications Medication Instructions Recorded Confirmed Type Buprenorphine [Butrans 10 MCG/HOUR] 1 patch TRANSDERM TU 11/15/22 01/16/23 History MORPHINE ORAL STEVE 2mg/mL [Morphine 5 mg PO Q6H PRN 11/15/22 01/16/23 History Oral Soln 2 MG/ML] Ondansetron Odt [Zofran ODT] 4 mg PO Q8H PRN 11/15/22 01/16/23 History Allergies Allergy/AdvReac Type Severity Reaction Status Date / Time acetaminophen Allergy Rash/Hives Verified 01/16/23 19:16 Physical Exam Vitals: Vital Signs Temp Pulse Pulse Resp BP BP Pulse Ox 01/18/23 12:52 98.3 F 95 16 110/66 92 L 01/18/23 12:29 98.1 F 92 16 124/71 95 01/18/23 07:10 97.7 F 93 18 117/64 95 01/18/23 02:09 98.5 F 93 16 109/70 92 L 01/17/23 20:00 98.3 F 94 16 94/58 93 L 01/17/23 15:07 97.6 F 95 18 118/73 98 01/17/23 14:36 98.7 F 01/17/23 14:00 92 17 92/53 99 Intake and Output 01/17/23 01/18/23 01/18/23 22:59 06:59 14:59 Intake Total 40 1542 0 Output Total 500 500 Balance 40 1042 -500 Intake: Intake, IV Titration 1542 Amount Dextrose 5%-0.45% NaCl 1, 1200 000 ml @ 100 mls/hr IV . Q10H [facility] Rx#:[id number] Fat Emulsion 20% 250 ml 42 In Empty Bag 1 bag @ 21 mls/hr IV MoTh@0600 [facility] Rx#:[id number] Mvi, Adult No.4 with Vit 300 K 10 ml Trace (Conc-1Ml/ Dose) 1 ml Potassium Acetate 16 meq Potassium Phosphate 6 mmol Calcium Gluconate 1 gm In Amino Acids 5 %/Dextrose 20 % 1 ,000 ml @ 30 mls/hr IV . Q24H [facility] Rx#:[id number] Oral 40 Blood Product 0 Unit 0 Output: Drainage 500 500 Abdomen 500 500 Other: # Voids 2 3 1 Weight 92.079 kg 92.079 kg General: Well developed, well nourished. No acute distress. Chronically ill appearing HEENT: Head is atraumatic, normocephalic. Lungs: Respirations even and nonlabored. On RA Abdomen/GI: Soft, obese, nondistended, nontender. Musculoskeletal/ Extremities: No joint deformity or swelling. No contractures or gross atrophy. + generalized weakness Skin: Warm and dry, jaundiced Neurologic: Awake, alert and oriented times 3. CN II-XII grossly intact. No focal deficits. Psychiatric: Appropriate mood and affect. Results CBC & Chem 7: 01/18/23 08:08 01/18/23 08:08 Labs: Abnormal Lab Results - Last 24 Hours (Table) 01/16/23 01/17/23 01/18/23 Range/Units 18:37 18:21 02:00 WBC (4.50-10.00) X 10*3/uL RBC (4.10-5.20) X 10*6/uL Hgb (12.0-15.0) g/dL Hct (37.2-46.3) % MCH (27.0-32.0) pg MCHC (32.0-37.0) g/dL RDW (11.5-14.5) % Sodium 148 H (137-145) mmol/L Potassium (3.5-5.1) mmol/L Chloride 112 H (98-107) mmol/L BUN 37 H (7-17) mg/dL Creatinine 1.28 H (0.52-1.04) mg/dL Glucose (74-99) mg/dL POC Glucose (mg/dL) 135 H (70-110) mg/dL Ionized Calcium Ashanti (4.5-5.3) mg/dL Magnesium 2.5 H (1.6-2.3) mg/dL Total Bilirubin (0.2-1.3) mg/dL AST (14-36) U/L ALT (4-34) U/L Alkaline Phosphatase (38-126) U/L Total Protein (6.3-8.2) g/dL Albumin (3.5-5.0) g/dL Crossmatch See Detail 01/18/23 01/18/23 01/18/23 Range/Units 05:39 08:08 08:08 WBC 28.26 H (4.50-10.00) X 10*3/uL RBC 2.07 L (4.10-5.20) X 10*6/uL Hgb 5.3 L* (12.0-15.0) g/dL Hct 18.5 L* (37.2-46.3) % MCH 25.6 L (27.0-32.0) pg MCHC 28.6 L (32.0-37.0) g/dL RDW 18.6 H (11.5-14.5) % Sodium 147 H (137-145) mmol/L Potassium 3.2 L (3.5-5.1) mmol/L Chloride 113 H (98-107) mmol/L BUN 33 H (7-17) mg/dL Creatinine 1.25 H (0.52-1.04) mg/dL Glucose 158 H (74-99) mg/dL POC Glucose (mg/dL) 148 H (70-110) mg/dL Ionized Calcium Ashanti 5.4 H (4.5-5.3) mg/dL Magnesium 2.4 H (1.6-2.3) mg/dL Total Bilirubin 5.9 H (0.2-1.3) mg/dL AST 98 H (14-36) U/L ALT 107 H (4-34) U/L Alkaline Phosphatase 1428 H (38-126) U/L Total Protein 6.0 L (6.3-8.2) g/dL Albumin 2.2 L (3.5-5.0) g/dL Crossmatch 01/18/23 Range/Units 11:09 WBC (4.50-10.00) X 10*3/uL RBC (4.10-5.20) X 10*6/uL Hgb (12.0-15.0) g/dL Hct (37.2-46.3) % MCH (27.0-32.0) pg MCHC (32.0-37.0) g/dL RDW (11.5-14.5) % Sodium (137-145) mmol/L Potassium (3.5-5.1) mmol/L Chloride (98-107) mmol/L BUN (7-17) mg/dL Creatinine (0.52-1.04) mg/dL Glucose (74-99) mg/dL POC Glucose (mg/dL) 150 H (70-110) mg/dL Ionized Calcium Ashanti (4.5-5.3) mg/dL Magnesium (1.6-2.3) mg/dL Total Bilirubin (0.2-1.3) mg/dL AST (14-36) U/L ALT (4-34) U/L Alkaline Phosphatase (38-126) U/L Total Protein (6.3-8.2) g/dL Albumin (3.5-5.0) g/dL Crossmatch Microbiology - Last 24 Hours (Table) 01/17/23 06:36 Blood Culture - Preliminary Blood No Growth after 24 hours US - abdomen: report reviewed Assessment and Plan Assessment: Social * Occupation - retired * Marital status - single * Children/grandchildren - none * Residence - House * Who do you reside with - pt lives alone * ETOH - none reported * Tobacco - never smoked * Illicit drugs - none reported Spiritual/Cultural * A spiritual person - Yes * Restorationist - Judaism * Belong to a particular christian - No * Beliefs a source of comfort and strength - Yes * Zoroastrianism or cultural practices restrictions - No * EOL considerations/rituals -Would like last rights Functional Assessment * Able to walk independently - Yes * Assistive devices - walker * Able to use the bathroom independently - yes, uses BSC at night * Continent - Yes * Require assistance bathing- Yes. She will not shower. Her sister washes her hair and helps her with a bedside bath. * Able to feed self - Yes * Who prepares meals - NPO, pt on TPN * Able to clean house/do laundry - No * Transportation - Sister, friends * Able to shop - No * Who manages medications - Patient and sister * Who manages finances - Patient and sister * Does pain impact ability to perform ADL's - Yes PPS score - 50% Psychological/Emotional * Dementia present - No * Insight and judgment - Intact * Depression - No * Suicidal thoughts - No * Good support system - Yes, family and friends * Patients goals - comfort * Frequent hospitalizations - No * Desire to keep coming back to the hospital for treatment - yes, for palliative radiation Symptoms * Pain - 6/10 left shoulder pain. Started Butrans patch, and dilaudid. Continue Lidoderm patches * Fatigue - + generalized weakness and fatigue * SOB - No * Insomnia - No * N/V - Occasional, Continue Zofran * Anxiety - No * Depression - No * Confusion - No * Agitation - No * Hallucinations - No * Appetite/weight loss - Patient on TPN * Dysphagia - NPO * Constipation - Yes, patient has not had a BM in approx 1 week, added Dulcolax suppository prn * Incontinence - No * Itch - No * Cough - No Plan: Summary/Goals - the patient is resting in bed. Her sister is currently visiting. The patient was receiving palliative care at home, mainly for pain control. The patient is well aware that her metastatic disease has progressed. Her liver ultrasound was reviewed with her. She understands that her radiation treatments are for palliative purposes. She has accepted her terminal illness. She believes that the end is near. However, she is not quite ready for hospice. Her plan is to go to rehab for a little while so she can return home. She states that her palliative care nurse practitioner that visits her at home has already discussed hospice with her. She will transition to hospice services when she is ready. Recommendations - rehab, then home with palliative care, will transition to hospice when pt ready Advanced Directives - None on file Code Status - DNR Thank you for this consultation Norma Abarca [facility]- Palliative [facility] [id number] Email: [email or web address]
[2023-01-18] MEDS: HYDROmorphone 0.5 MG/0.5 ML SYRINGE IVP PRN ×2 (15:06→21:02)
--- NOTE | 2023-01-18 16:58 | P.PN ---
Subjective Progress Note Date: 01/18/23 Hospital course: Patient is a very pleasant 67-year-old female with a past medical history of metastatic renal cancer currently on palliative care. She presented to the emergency department secondary to findings of uncontrolled pain, weakness, and abnormal labs. Upon arrival to the emergency department patient underwent full evaluation. CBC revealed significant leukocytosis with WBC count of 25.8 predominantly neutrophilic with neutrophils of 24.1, normocytic anemia with hemoglobin of 7.1. BMP revealing hypernatremia with sodium of 150 and hyperchloremia with chloride of 114 with prerenal azotemia with BUN of 38. Patient also with lactic acidosis with plasma lactic acid of 2.7. Liver profile revealing hyperbilirubinemia with bilirubin of 5.7 and transaminitis with AST of 135, ALT of 131, an alkaline phosphatase of 1538. Patient was admitted under our services with consultation to oncology and palliative care. Liver ultrasound completed and reviewed. Radiology report stating new moderate biliary dilation presumed from local neoplastic progression causing CBD obstruction. Order was initially placed for CT abdomen and pelvis to further evaluate CBD obstruction and possible metastatic progression, however patient declined at this time. Tushar phelps met with palliative care to determine plans for discharge on palliative care when ready. Physical exam: Vital signs reviewed and stable. General: Nontoxic, no distress and appears stated age. Derm: Skin warm and dry, normal coloration for ethnicity. Head: Atraumatic, normocephalic and symmetric. Eyes: EOMs intact, no lid lag, and anicteric sclera Mouth: no lip lesions, mucus membranes moist Cardiovascular: regular rate and rhythm with normal S1S2, no murmur, positive posterior tibial pulses bilaterally, and cap refill < 2 seconds. Lungs: Respirations even, regular, and unlabored on room air. Lungs CTA bilaterally, no rhonchi, no rales, no wheezing, and no accessory muscle usage. Abdominal: soft, nontender to palpation, no guarding, no appreciable organomegaly Ext: ROM intact. No gross muscle atrophy, no edema, no contractures Neuro: Speech clear, face symmetrical and CN II-XII grossly intact with no noted focal neuro deficits Psych: Alert and oriented to person, place, time, and situation. Appropriate and pleasant affect. Assessment and Plan of Care: Metastatic renal cancer Acute on Chronic anemia, secondary to metastatic cancer Leukocytosis predominantly neutrophilic, secondary to metastatic cancer Intractable abdominal pain and left shoulder pain, secondary to metastatic cancer Transaminitis, secondary to advancement of metastatic cancer and CBD obstruction -Liver ultrasound completed and reviewed. Radiology report stating new moderate biliary dilation presumed from local neoplastic progression causing CBD obstruction. -Morning labs reviewed. CBC revealing leukocytosis with WBC count of 28.26 and acute on chronic anemia with hemoglobin of 5.3 and hematocrit of 18.5. Liver profile revealing elevated total bili of 5.9, AST of 98, ALT of 107, and alkaline phosphatase of 1428. -Order placed for transfusion 1 unit PRBCs for hemoglobin of 5.3. -Order placed for Repeat CBC to monitor closely for improvement of acute on chr onic anemia. -Patient was started on TPN with lipids on 01/17/23. -Discussed plan of care with palliative care SHEARING MACHINE TENDER, patient to be discharged to longterm facility on palliative care versus home with home care and continued to receive palliative care. Patient is an except evidence of terminal illness and states that she will transition to hospice when she is ready. -Patient is scheduled to undergo palliative radiation later today. -Oncology following, recommending palliative care -Symptomatic care and pain management. Hypernatremia, improved Hyperchloremia Prerenal azotemia, improved -Morning labs reviewed. BMP revealing hypernatremia with sodium of 147, hyperchloremia with chloride of 113, and prerenal azotemia with BUN of 33 and creatinine of 1.25 and GFR 45. -Patient has been started on TPN with lipids. IV fluids were discontinued. We will repeat morning BMP for close follow-up of labs in place additional orders based upon these findings. Lactic acidosis, resolved with IV fluid hydration. CODE STATUS: DO NOT RESUSCITATE/DO NOT INTUBATE DVT prophylaxis: Lovenox Anticipated discharge date: Clinical course to determine Anticipated discharge place: Home Patient was seen independently by Nurse Pracitioner. This document was prepared using [employer] dictation software. Please allow for errors in digital computer systems analyst, while rare they do occur. Say Salmeron NP rendered care for this patient independently, reviewed the findings and plan as documented in the note above. I did not physically speak with or examine the patient on this date. Objective - Vital Signs Vital signs: Vital Signs Temp 97.7 F 01/18/23 07:10 Pulse 93 01/18/23 07:10 Resp 18 01/18/23 07:10 BP 117/64 01/18/23 07:10 Pulse Ox 95 04/06/23 07:10 FiO2 Intake & Output 01/17/23 01/18/23 01/18/23 18:59 06:59 18:59 Intake Total 40 1542 Output Total 500 Balance 40 1042 Weight 92.079 kg Intake: Intake, IV Titration 1542 Amount Dextrose 5%-0.45% NaCl 1, 1200 000 ml @ 100 mls/hr IV . Q10H [facility] Rx#:[id number] Fat Emulsion 20% 250 ml 42 In Empty Bag 1 bag @ 21 mls/hr IV MoTh@0600 [facility] Rx#:[id number] Mvi, Adult No.4 with Vit 300 K 10 ml Trace (Conc-1Ml/ Dose) 1 ml Potassium Acetate 16 meq Potassium Phosphate 6 mmol Calcium Gluconate 1 gm In Amino Acids 5 %/Dextrose 20 % 1 ,000 ml @ 30 mls/hr IV . Q24H [facility] Rx#:[id number] Oral 40 Output: Drainage 500 Abdomen 500 Other: # Voids 2 3 1 - Labs CBC & Chem 7: 01/22/23 05:53 01/22/23 05:53 Labs: Abnormal Lab Results - Last 24 Hours (Table) 01/17/23 01/17/23 01/18/23 Range/Units 06:36 18:21 02:00 Sodium 151 H 148 H (137-145) mmol/L Potassium (3.5-5.1) mmol/L Chloride 113 H 112 H (98-107) mmol/L BUN 36 H 37 H (7-17) mg/dL Creatinine 1.07 H 1.28 H (0.52-1.04) mg/dL Glucose (74-99) mg/dL POC Glucose (mg/dL) 135 H (70-110) mg/dL Ionized Calcium Ashanti (4.5-5.3) mg/dL Magnesium 2.5 H (1.6-2.3) mg/dL Total Bilirubin 6.1 H (0.2-1.3) mg/dL Conjugated Bilirubin 3.1 H (0.0-0.3) mg/dL AST 152 H (14-36) U/L ALT 138 H (4-34) U/L Alkaline Phosphatase 1607 H (38-126) U/L Total Protein (6.3-8.2) g/dL Albumin 2.7 L (3.5-5.0) g/dL 01/18/23 01/18/23 Range/Units 05:39 08:08 Sodium 147 H (137-145) mmol/L Potassium 3.2 L (3.5-5.1) mmol/L Chloride 113 H (98-107) mmol/L BUN 33 H (7-17) mg/dL Creatinine 1.25 H (0.52-1.04) mg/dL Glucose 158 H (74-99) mg/dL POC Glucose (mg/dL) 148 H (70-110) mg/dL Ionized Calcium Ashanti 5.4 H (4.5-5.3) mg/dL Magnesium 2.4 H (1.6-2.3) mg/dL Total Bilirubin 5.9 H (0.2-1.3) mg/dL Conjugated Bilirubin (0.0-0.3) mg/dL AST 98 H (14-36) U/L ALT 107 H (4-34) U/L Alkaline Phosphatase 1428 H (38-126) U/L Total Protein 6.0 L (6.3-8.2) g/dL Albumin 2.2 L (3.5-5.0) g/dL
[2023-01-18 17:25] LABS: Glucose,Whole Blood 149 mg/dL (70-110)
[2023-01-18] MEDS ORDERED: [UNRECOGNIZED DRUG - REMARK] IV SCH ×6 (20:30)
[2023-01-18] MEDS: [UNRECOGNIZED DRUG - REMARK] IV SCH ×5 (20:52)
[2023-01-19 01:05] LABS: Glucose,Whole Blood 152 mg/dL (70-110)
[2023-01-19] MEDS: HYDROmorphone 0.5 MG/0.5 ML SYRINGE IVP PRN ×4 (05:20→20:39)
[2023-01-19 06:35] LABS: Glucose,Whole Blood 175 mg/dL (70-110)
[2023-01-19 07:27] LABS: ALT 108 U/L (4-34); AST 105 U/L (14-36); African American GFR (CKD) 50 (>60 ml/min/1.73 sqM); Albumin 2.3 g/dL (3.5-5.0); Albumin/Globulin Ratio 0.6; Anion Gap 8 mmol/L; Blood Urea Nitrogen 30 mg/dL (7-17); Calcium 8.3 mg/dL (8.4-10.2); Carbon Dioxide 27 mmol/L (22-30); Chloride 111 mmol/L (98-107); Globulin 3.9 g/dL; Glucose 171 mg/dL (74-99); Magnesium 2.3 mg/dL (1.6-2.3); Non-African American GFR(CKD) 43 (>60 ml/min/1.73 sqM); Phosphorus 2.8 mg/dL (2.5-4.5); Sodium 146 mmol/L (137-145); Total Bilirubin 6.1 mg/dL (0.2-1.3); Total Protein 6.2 g/dL (6.3-8.2)
[2023-01-19] MEDS: ENOXAPARIN 40 MG/0.4 ML SYRINGE SQ SCH (07:55)
[2023-01-19] MEDS: LIDOCAINE 5% PATCH TOPICAL SCH (07:55)
[2023-01-19 08:36] LABS: Alkaline Phosphatase 1283 U/L (38-126)
[2023-01-19] MEDS: [UNRECOGNIZED DRUG - REMARK] IV SCH ×10 (09:23→20:39)
[2023-01-19] MEDS ORDERED: POTASSIUM PHOSPHATE 15 MMOL in SODIUM CHLORIDE 0.9% 100 ML IV ONE (11:00)
[2023-01-19 11:38] LABS: HCT 21.9 % (37.2-46.3); HGB 6.5 g/dL (12.0-15.0); MCH 26.1 pg (27.0-32.0); MCHC 29.7 g/dL (32.0-37.0); Mean Platelet Volume 10.7 fL (9.5-12.2); NRBC Per 100 WBC 0 /100 WBCS (0.0-0.0); Platelet Count 393 X 10*3/uL (140-440); RBC 2.49 X 10*6/uL (4.10-5.20); RDW 17.9 % (11.5-14.5); WBC 26.19 X 10*3/uL (4.50-10.00)
[2023-01-19 12:06] LABS: Glucose,Whole Blood 197 mg/dL (70-110)
[2023-01-19] MEDS: ONDANSETRON 4 MG/2 ML VIAL IVP PRN (15:27)
--- NOTE | 2023-01-19 16:27 | P.PN ---
Subjective Progress Note Date: 01/19/23 Hospital course: Patient is a very pleasant 67-year-old female with a past medical history of metastatic renal cancer currently on palliative care. She presented to the emergency department secondary to findings of uncontrolled pain, weakness, and abnormal labs. Upon arrival to the emergency department patient underwent full evaluation. CBC revealed significant leukocytosis with WBC count of 25.8 predominantly neutrophilic with neutrophils of 24.1, normocytic anemia with hemoglobin of 7.1. BMP revealing hypernatremia with sodium of 150 and hyperchloremia with chloride of 114 with prerenal azotemia with BUN of 38. Patient also with lactic acidosis with plasma lactic acid of 2.7. Liver profile revealing hyperbilirubinemia with bilirubin of 5.7 and transaminitis with AST of 135, ALT of 131, an alkaline phosphatase of 1538. Patient was admitted under our services with consultation to oncology and palliative care. Liver ultrasound completed and reviewed. Radiology report stating new moderate biliary dilation presumed from local neoplastic progression causing CBD obstruction. Order was initially placed for CT abdomen and pelvis to further evaluate CBD obstruction and possible metastatic progression, however patient declined at this time. Tushar phelps met with palliative care to determine plans for discharge on palliative care when ready. Physical exam: Patient seen and evaluated at bedside this morning. Patient appears much more lethargic today and states "today is just one of those days that she wants to sleep." Patient's pain medication was not lasting every 6 hours and orders placed for Dilaudid 0.5 mg every 3 hours as needed for pain/discomfort. Vital signs reviewed and stable. General: Nontoxic, no distress and appears stated age. Derm: Skin warm and dry, normal coloration for ethnicity. Head: Atraumatic, normocephalic and symmetric. Eyes: EOMs intact, no lid lag, and anicteric sclera Mouth: no lip lesions, mucus membranes moist Cardiovascular: regular rate and rhythm with normal S1S2, no murmur, positive posterior tibial pulses bilaterally, and cap refill < 2 seconds. Lungs: Respirations even, regular, and unlabored on room air. Lungs CTA bilaterally, no rhonchi, no rales, no wheezing, and no accessory muscle usage. Abdominal: soft, nontender to palpation, no guarding, no appreciable organomegaly Ext: ROM intact. No gross muscle atrophy, no edema, no contractures Neuro: Speech clear, face symmetrical and CN II-XII grossly intact with no noted focal neuro deficits Psych: Alert and oriented to person, place, time, and situation. Appropriate and pleasant affect. Assessment and Plan of Care: Morning labs reviewed. CBC consistent for leukocytosis with WBC count of 26.19. Hemoglobin improved but remains low at 6.5 with hematocrit of 21.9. BMP revealing hypernatremia with sodium 146, hypokalemia with potassium of 3.0, hyperchloremia with chloride of 111, BUN of 30, creatinine 1.29, and GFR 43. Liver profile showing consistently elevated liver enzymes with total bili of 6.1, AST of 105, ALT of 108, and alkaline phosphatase of 1283. Metastatic renal cancer Acute on Chronic anemia, secondary to metastatic cancer Leukocytosis predominantly neutrophilic, secondary to metastatic cancer Intractable abdominal pain and left shoulder pain, secondary to metastatic cancer Transaminitis, secondary to advancement of metastatic cancer and CBD obstruction -Liver ultrasound completed and reviewed. Radiology report stating new moderate biliary dilation presumed from local neoplastic progression causing CBD obstruction. -Morning labs reviewed. CBC consistent for leukocytosis with WBC count of 26.19. Hemoglobin improved but remains low at 6.5 with hematocrit of 21.9. BMP revealing hypernatremia with sodium 146, hypokalemia with potassium of 3.0, hyperchloremia with chloride of 111, BUN of 30, creatinine 1.29, and GFR 43. Liver profile showing consistently elevated liver enzymes with total bili of 6.1, AST of 105, ALT of 108, and alkaline phosphatase of 1283. -Order placed for transfusion 1 unit PRBCs for hemoglobin of 6.5. -Order placed for Repeat CBC to monitor closely for improvement of acute on chronic anemia. -Patient was started on TPN with lipids on 01/17/23, and electrolytes to be replaced via TPN. -Palliative care following, patient to be discharged to senior living facility on palliative care versus home with home care and continued to receive continued palliative care. -Patient appears to be understanding of her terminal illness and states that she will transition to hospice when she feels is ready. -Patient is scheduled to undergo palliative radiation again later today. -Oncology following, recommending palliative care -Symptomatic care and pain management. Patient's pain medication was not lasting every 6 hours and orders placed for Dilaudid 0.5 mg every 3 hours as needed for pain/discomfort. Hypernatremia, improved Hyperchloremia Prerenal azotemia, improved -Morning labs reviewed. BMP revealing hypernatremia with sodium of 147, hyperchloremia with chloride of 113, and prerenal azotemia with BUN of 33 and creatinine of 1.25 and GFR 45. -Patient has been started on TPN with lipids. IV fluids were discontinued. We will repeat morning BMP for close follow-up of labs in place additional orders based upon these findings. Lactic acidosis, resolved with IV fluid hydration. CODE STATUS: DO NOT RESUSCITATE/DO NOT INTUBATE DVT prophylaxis: Lovenox Anticipated discharge date: Clinical course to determine Anticipated discharge place: Home Patient was seen independently by Nurse Pracitioner. This document was prepared using [employer] dictation software. Please allow for errors in assistant operator, while rare they do occur. I reviewed the documentation as provided by the NATHANIEL above, who is the original author of this note. I agree with the documented assessment and plan, with the following changes: none Objective - Vital Signs Vital signs: Vital Signs Temp 98.3 F 01/19/23 07:08 Pulse 87 01/19/23 07:08 Resp 16 01/19/23 07:08 BP 123/72 01/19/23 07:08 Pulse Ox 91 L 01/19/23 07:08 FiO2 Intake & Output 01/18/23 01/19/23 01/19/23 18:59 06:59 18:59 Intake Total 1822 768 Output Total 1100 400 Balance 722 368 Weight 92.079 kg Intake: Intake, IV Titration 1512 768 Amount Dextrose 5%-0.45% NaCl 1, 900 000 ml @ 100 mls/hr IV . Q10H [facility] Rx#:[id number] Fat Emulsion 20% 250 ml 252 In Empty Bag 1 bag @ 21 mls/hr IV MoTh@0600 [facility] Rx#:[id number] Mvi, Adult No.4 with Vit 360 K 10 ml Trace (Conc-1Ml/ Dose) 1 ml Potassium Acetate 16 meq Potassium Phosphate 6 mmol Calcium Gluconate 1 gm In Amino Acids 5 %/Dextrose 20 % 1 ,000 ml @ 30 mls/hr IV . Q24H [facility] Rx#:[id number] Potassium Acetate 16 meq 768 Potassium Phosphate 6 mmol In Amino Acids 5 %/ Dextrose 20 % 1,000 ml @ 94 mls/hr IV .BY DURATION [facility] Rx#:[id number] Blood Product 310 Rc As-1 Unit 310 [id number] Output: Drainage 1100 400 Abdomen 1100 400 Other: # Voids 1 - Labs CBC & Chem 7: 01/19/23 06:45 01/19/23 06:45 Labs: Abnormal Lab Results - Last 24 Hours (Table) 01/16/23 01/18/23 01/18/23 Range/Units 18:37 08:08 08:08 WBC 28.26 H (4.50-10.00) X 10*3/uL RBC 2.07 L (4.10-5.20) X 10*6/uL Hgb 5.3 L* (12.0-15.0) g/dL Hct 18.5 L* (37.2-46.3) % MCH 25.6 L (27.0-32.0) pg MCHC 28.6 L (32.0-37.0) g/dL RDW 18.6 H (11.5-14.5) % Sodium 147 H (137-145) mmol/L Potassium 3.2 L (3.5-5.1) mmol/L Chloride 113 H (98-107) mmol/L BUN 33 H (7-17) mg/dL Creatinine 1.25 H (0.52-1.04) mg/dL Glucose 158 H (74-99) mg/dL POC Glucose (mg/dL) (70-110) mg/dL Calcium (8.4-10.2) mg/dL Magnesium 2.4 H (1.6-2.3) mg/dL Total Bilirubin 5.9 H (0.2-1.3) mg/dL AST 98 H (14-36) U/L ALT 107 H (4-34) U/L Alkaline Phosphatase 1428 H (38-126) U/L Total Protein 6.0 L (6.3-8.2) g/dL Albumin 2.2 L (3.5-5.0) g/dL Triglycerides 206.00 H (0.00-149.00) mg/dL Crossmatch See Detail 01/18/23 01/18/23 01/19/23 Range/Units 11:09 17:24 01:03 WBC (4.50-10.00) X 10*3/uL RBC (4.10-5.20) X 10*6/uL Hgb (12.0-15.0) g/dL Hct (37.2-46.3) % MCH (27.0-32.0) pg MCHC (32.0-37.0) g/dL RDW (11.5-14.5) % Sodium (137-145) mmol/L Potassium (3.5-5.1) mmol/L Chloride (98-107) mmol/L BUN (7-17) mg/dL Creatinine (0.52-1.04) mg/dL Glucose (74-99) mg/dL POC Glucose (mg/dL) 150 H 149 H 152 H (70-110) mg/dL Calcium (8.4-10.2) mg/dL Magnesium (1.6-2.3) mg/dL Total Bilirubin (0.2-1.3) mg/dL AST (14-36) U/L ALT (4-34) U/L Alkaline Phosphatase (38-126) U/L Total Protein (6.3-8.2) g/dL Albumin (3.5-5.0) g/dL Triglycerides (0.00-149.00) mg/dL Crossmatch 01/19/23 01/19/23 Range/Units 06:34 06:45 WBC (4.50-10.00) X 10*3/uL RBC (4.10-5.20) X 10*6/uL Hgb (12.0-15.0) g/dL Hct (37.2-46.3) % MCH (27.0-32.0) pg MCHC (32.0-37.0) g/dL RDW (11.5-14.5) % Sodium 146 H (137-145) mmol/L Potassium 3.0 L (3.5-5.1) mmol/L Chloride 111 H (98-107) mmol/L BUN 30 H (7-17) mg/dL Creatinine 1.29 H (0.52-1.04) mg/dL Glucose 171 H (74-99) mg/dL POC Glucose (mg/dL) 175 H (70-110) mg/dL Calcium 8.3 L (8.4-10.2) mg/dL Magnesium (1.6-2.3) mg/dL Total Bilirubin 6.1 H (0.2-1.3) mg/dL AST 105 H (14-36) U/L ALT 108 H (4-34) U/L Alkaline Phosphatase 1283 H (38-126) U/L Total Protein 6.2 L (6.3-8.2) g/dL Albumin 2.3 L (3.5-5.0) g/dL Triglycerides (0.00-149.00) mg/dL Crossmatch Microbiology - Last 24 Hours (Table) 01/17/23 06:36 Blood Culture - Preliminary Blood No Growth after 24 hours
--- NOTE | 2023-01-19 16:49 | P.PN ---
Subjective Progress Note Date: 01/19/23 Principal diagnosis: weakness, hx renal carcinoma Plan visit today patient is resting comfortably in bed. She reports fatigue and generalized weakness. She reports she was not able to sleep well last night. Patient is scheduled today for palliative XRT with Dr. Lopez. No other reported complaints at this time Objective - Vital Signs Vital signs: Vital Signs Temp 97.8 F 01/19/23 16:24 Pulse 76 01/19/23 16:24 Resp 18 01/19/23 16:24 BP 114/72 01/19/23 16:24 Pulse Ox 95 01/19/23 11:55 FiO2 Intake & Output 01/18/23 01/19/23 01/19/23 18:59 06:59 18:59 Intake Total 5155 128 5928 Output Total 1100 400 450 Balance 722 368 560 Weight 92.079 kg 92.079 kg Intake: Intake, IV Titration 9965 660 1236 Amount Dextrose 5%-0.45% NaCl 1, 900 000 ml @ 100 mls/hr IV . Q10H [facility] Rx#:[id number] Fat Emulsion 20% 250 ml 252 In Empty Bag 1 bag @ 21 mls/hr IV MoTh@0600 [facility] Rx#:[id number] Mvi, Adult No.4 with Vit 360 K 10 ml Trace (Conc-1Ml/ Dose) 1 ml Potassium Acetate 16 meq Potassium Phosphate 6 mmol Calcium Gluconate 1 gm In Amino Acids 5 %/Dextrose 20 % 1 ,000 ml @ 30 mls/hr IV . Q24H [facility] Rx#:[id number] Potassium Acetate 16 meq 768 1010 Potassium Phosphate 6 mmol In Amino Acids 5 %/ Dextrose 20 % 1,000 ml @ 94 mls/hr IV .BY DURATION [facility] Rx#:[id number] Blood Product 310 0 Unit 0 Rc As-1 Unit 310 [id number] Output: Drainage 1100 400 450 Abdomen 1100 400 450 Other: # Voids 1 - Constitutional General appearance: Present: average body habitus, no acute distress - EENT Eyes: Present: EOMI ENT: Present: hearing grossly normal - Respiratory Details: Breathing is even and unlabored - Cardiovascular Details: Skin warm and dry - Gastrointestinal General gastrointestinal: Present: soft. Absent: tenderness - Integumentary Integumentary: Present: jaundiced, pale - Musculoskeletal Musculoskeletal: Present: generalized weakness - Psychiatric Psychiatric: Present: A&O x's 3, appropriate affect, intact judgment & insight - Labs CBC & Chem 7: 01/19/23 06:45 01/19/23 06:45 Labs: Abnormal Lab Results - Last 24 Hours (Table) 01/16/23 01/18/23 01/19/23 Range/Units 18:37 17:24 01:03 WBC (4.50-10.00) X 10*3/uL RBC (4.10-5.20) X 10*6/uL Hgb (12.0-15.0) g/dL Hct (37.2-46.3) % MCH (27.0-32.0) pg MCHC (32.0-37.0) g/dL RDW (11.5-14.5) % Sodium (137-145) mmol/L Potassium (3.5-5.1) mmol/L Chloride (98-107) mmol/L BUN (7-17) mg/dL Creatinine (0.52-1.04) mg/dL Glucose (74-99) mg/dL POC Glucose (mg/dL) 149 H 152 H (70-110) mg/dL Calcium (8.4-10.2) mg/dL Total Bilirubin (0.2-1.3) mg/dL AST (14-36) U/L ALT (4-34) U/L Alkaline Phosphatase (38-126) U/L Total Protein (6.3-8.2) g/dL Albumin (3.5-5.0) g/dL Crossmatch See Detail 01/19/23 01/19/23 01/19/23 Range/Units 06:34 06:45 06:45 WBC 26.19 H (4.50-10.00) X 10*3/uL RBC 2.49 L (4.10-5.20) X 10*6/uL Hgb 6.5 L* (12.0-15.0) g/dL Hct 21.9 L (37.2-46.3) % MCH 26.1 L (27.0-32.0) pg MCHC 29.7 L (32.0-37.0) g/dL RDW 17.9 H (11.5-14.5) % Sodium 146 H (137-145) mmol/L Potassium 3.0 L (3.5-5.1) mmol/L Chloride 111 H (98-107) mmol/L BUN 30 H (7-17) mg/dL Creatinine 1.29 H (0.52-1.04) mg/dL Glucose 171 H (74-99) mg/dL POC Glucose (mg/dL) 175 H (70-110) mg/dL Calcium 8.3 L (8.4-10.2) mg/dL Total Bilirubin 6.1 H (0.2-1.3) mg/dL AST 105 H (14-36) U/L ALT 108 H (4-34) U/L Alkaline Phosphatase 1283 H (38-126) U/L Total Protein 6.2 L (6.3-8.2) g/dL Albumin 2.3 L (3.5-5.0) g/dL Crossmatch 01/19/23 Range/Units 12:03 WBC (4.50-10.00) X 10*3/uL RBC (4.10-5.20) X 10*6/uL Hgb (12.0-15.0) g/dL Hct (37.2-46.3) % MCH (27.0-32.0) pg MCHC (32.0-37.0) g/dL RDW (11.5-14.5) % Sodium (137-145) mmol/L Potassium (3.5-5.1) mmol/L Chloride (98-107) mmol/L BUN (7-17) mg/dL Creatinine (0.52-1.04) mg/dL Glucose (74-99) mg/dL POC Glucose (mg/dL) 197 H (70-110) mg/dL Calcium (8.4-10.2) mg/dL Total Bilirubin (0.2-1.3) mg/dL AST (14-36) U/L ALT (4-34) U/L Alkaline Phosphatase (38-126) U/L Total Protein (6.3-8.2) g/dL Albumin (3.5-5.0) g/dL Crossmatch Microbiology - Last 24 Hours (Table) 01/17/23 06:36 Blood Culture - Preliminary Blood No Growth after 48 hours Assessment and Plan (1) Renal cancer Current Visit: Yes Status: Acute Priority: High Code(s): C64.9 - MALIGNANT NEOPLASM OF UNSP KIDNEY, EXCEPT RENAL PELVIS SNOMED Code(s): 376100699 Plan: Weakness -Multifactorial -Anemia -Malignancy, concerns for progression of malignancy will also contribute to weakness. This was discussed with patient. Anemia -Secondary to malignancy, inability to mobilize iron properly for bone marrow utilization -Discussed with patient anemia is likely contributing to her weakness. She has at this degree of anemia since 11/06. Hemoglobin 5.3 yesterday, 1 unit PRBCs transfused. Hemoglobin 6.5 today, will order additional unit of PRBCs. Denies episodes of bleeding -Please transfuse for hemoglobin less than 7. Anemia workup was done 1 month ago, anemia of inflammation. Inflammation from malignancy is preventing mobilization and binding of iron properly so, additional iron at this time will not be helpful. Renal cell carcinoma -Patient is currently on palliative care -Ultrasound results suggestive of possible disease progression in the liver. Wanted to do a CT scan of the abdomen and pelvis, patient refused oral and IV contrast. We also were contacted by Radiology because it was reported to them that patient was on palliative care and not pursuing any treatment. CT scan canceled at this time. -Encouraged patient to speak with her underwriting support manager as well as her caregivers about how she would like to proceed forward. -Patient is aware of the treatment options. -Patient does have an appointment to start immunotherapy in February if she wants to. However, at todays visit she states that she does not want to proceed with immunotherapy. I spoke with patient that if she would like to further discuss treatment or change her mind she can contact our clinic at anytime. -Reviewed with her concern that malignancy will progress without treatment, which will in turn continue to make her physically weaker and weaker and she will not be able to rehabilitate. She verbalized understanding. -Rad/onc consulted. Plan for palliative XRT We will remain available if there are any other questions or concerns. Recommend palliative care. If patient does not choose to seek treatment for cancer then hospice care would be most appropriate as she will need that type of support for treatment of her symptoms.
[2023-01-19 17:18] LABS: Glucose,Whole Blood 174 mg/dL (70-110)
[2023-01-20 00:22] LABS: Glucose,Whole Blood 143 mg/dL (70-110)
[2023-01-20] MEDS: HYDROmorphone 0.5 MG/0.5 ML SYRINGE IVP PRN ×5 (01:49→21:51)
[2023-01-20 05:55] LABS: Glucose,Whole Blood 152 mg/dL (70-110)
[2023-01-20] MEDS: LIDOCAINE 5% PATCH TOPICAL SCH (08:32)
[2023-01-20] MEDS: ENOXAPARIN 40 MG/0.4 ML SYRINGE SQ SCH (08:32)
[2023-01-20] MEDS: [UNRECOGNIZED DRUG - REMARK] IV SCH ×10 (08:33→19:21)
[2023-01-20 12:43] LABS: Glucose,Whole Blood 167 mg/dL (70-110)
[2023-01-20 13:24] LABS: HCT 25.7 % (37.2-46.3); HGB 7.9 g/dL (12.0-15.0); MCH 26.9 pg (27.0-32.0); MCHC 30.7 g/dL (32.0-37.0); MCV 87.4 fL (80.0-97.0); Mean Platelet Volume 11.2 fL (9.5-12.2); NRBC Per 100 WBC 0 /100 WBCS (0.0-0.0); Platelet Count 345 X 10*3/uL (140-440); RBC 2.94 X 10*6/uL (4.10-5.20); RDW 17.2 % (11.5-14.5); WBC 24.16 X 10*3/uL (4.50-10.00)
--- NOTE | 2023-01-20 14:03 | P.PN ---
Subjective Progress Note Date: 01/20/23 Hospital course: Patient is a very pleasant 67-year-old female with a past medical history of metastatic renal cancer currently on palliative care. She presented to the emergency department secondary to findings of uncontrolled pain, weakness, and abnormal labs. Upon arrival to the emergency department patient underwent full evaluation. CBC revealed significant leukocytosis with WBC count of 25.8 predominantly neutrophilic with neutrophils of 24.1, normocytic anemia with hemoglobin of 7.1. BMP revealing hypernatremia with sodium of 150 and hyperchloremia with chloride of 114 with prerenal azotemia with BUN of 38. Patient also with lactic acidosis with plasma lactic acid of 2.7. Liver profile revealing hyperbilirubinemia with bilirubin of 5.7 and transaminitis with AST of 135, ALT of 131, an alkaline phosphatase of 1538. Patient was admitted under our services with consultation to oncology and palliative care. Liver ultrasound completed and reviewed. Radiology report stating new moderate biliary dilation presumed from local neoplastic progression causing CBD obstruction. Order was initially placed for CT abdomen and pelvis to further evaluate CBD obstruction and possible metastatic progression, however patient declined at this time. Tushar phelps met with palliative care to determine plans for discharge on palliative care when ready. Physical exam: Patient seen and evaluated at bedside this morning. Patient reports feeling fatigued but states she is definitely feeling better than yesterday. Awaiting morning labs to result. Patient will likely be discharged to extended care facility for continued palliative care/treatment on Sunday01/22/23. Vital signs reviewed and stable. General: Nontoxic, no distress and appears stated age. Derm: Skin warm and dry, normal coloration for ethnicity. Head: Atraumatic, normocephalic and symmetric. Eyes: EOMs intact, no lid lag, and anicteric sclera Mouth: no lip lesions, mucus membranes moist Cardiovascular: regular rate and rhythm with normal S1S2, no murmur, positive posterior tibial pulses bilaterally, and cap refill < 2 seconds. Lungs: Respirations even, regular, and unlabored on room air. Lungs CTA bilaterally, no rhonchi, no rales, no wheezing, and no accessory muscle usage. Abdominal: soft, nontender to palpation, no guarding, no appreciable organomegaly Ext: ROM intact. No gross muscle atrophy, no edema, no contractures Neuro: Speech clear, face symmetrical and CN II-XII grossly intact with no noted focal neuro deficits Psych: Alert and oriented to person, place, time, and situation. Appropriate and pleasant affect. Assessment and Plan of Care: Metastatic renal cancer Acute on Chronic anemia, secondary to metastatic cancer Leukocytosis predominantly neutrophilic, secondary to metastatic cancer Intractable abdominal pain and left shoulder pain, secondary to metastatic cancer Transaminitis, secondary to advancement of metastatic cancer and CBD obstruction -Liver ultrasound completed 01/17/23 and reviewed. Radiology report stating new moderate biliary dilation presumed from local neoplastic progression causing CBD obstruction. -Morning labs completed and reviewed. Morning CBC completed and reviewed showing a stable hemoglobin of 7.9 and continued leukocytosis with WBC count of 24.16. CMP pending. -Status post transfusion of 2 units PRBCs hemoglobin currently stable at 7.9. -Order placed for Repeat CBC to monitor closely for improvement of acute on chronic anemia. -Patient was started on TPN with lipids on 01/17/23, and electrolytes to be replaced via TPN. -Palliative care following, patient to be discharged to correction facility on palliative care versus home with home care and continued to receive continued palliative care. -Patient appears to be understanding of her terminal illness and states that she will transition to hospice when she feels is ready. -Patient underwent palliative radiation on 01/18/23 and again on 01/19/23. -Oncology following, recommending palliative care -Symptomatic care and pain management. Patient's pain medication was not lasting every 6 hours and orders placed for Dilaudid 0.5 mg every 3 hours as needed for pain/discomfort. Hypernatremia, improved Hyperchloremia, improved Prerenal azotemia, improved -Morning labs reviewed. BMP revealing hypernatremia with sodium of 147, hyperchloremia with chloride of 113, and prerenal azotemia with BUN of 33 and creatinine of 1.25 and GFR 45. -Patient has been started on TPN with lipids. IV fluids were discontinued. We will repeat morning CMP for close follow-up of labs in place additional orders based upon these findings. Lactic acidosis, resolved with IV fluid hydration. CODE STATUS: DO NOT RESUSCITATE/DO NOT INTUBATE DVT prophylaxis: Lovenox Anticipated discharge date: Clinical course to determine Anticipated discharge place: Home Patient was seen independently by Nurse Pracitioner. This document was prepared using [email or web address] dictation software. Please allow for errors in manager of pharmacy, while rare they do occur. Say Salmeron NP rendered care for this patient independently, reviewed the findings and plan as documented in the note above. I did not physically speak with or examine the patient on this date. Objective - Vital Signs Vital signs: Vital Signs Temp 97.8 F 01/20/23 07:20 Pulse 92 01/20/23 07:20 Resp 18 01/20/23 07:20 BP 117/67 01/20/23 07:20 Pulse Ox 95 01/20/23 07:20 FiO2 Intake & Output 01/19/23 01/20/23 01/20/23 18:59 06:59 18:59 Intake Total 2498 1438 Output Total 450 1650 Balance 2048 -212 Weight 92.079 kg Intake: Intake, IV Titration 2188 1128 Amount Potassium Acetate 16 meq 1128 1128 Potassium Phosphate 15 mmol In Amino Acids 5 %/ Dextrose 20 % 1,000 ml @ 94 mls/hr IV .BY DURATION [facility] Rx#:[id number] Potassium Acetate 16 meq 1010 Potassium Phosphate 6 mmol In Amino Acids 5 %/ Dextrose 20 % 1,000 ml @ 94 mls/hr IV .BY DURATION [facility] Rx#:[id number] Potassium Phosphate 15 50 mmol In Sodium Chloride 0 .9% 100 ml @ 50 mls/hr IV ONCE ONE Rx#:[id number] Blood Product 310 310 Rc As-1 Unit 310 [id number] Rc As-1 Unit 0 310 [id number] Output: Drainage 450 1650 Abdomen 450 1650 Other: # Voids 4 # Bowel Movements 1 - Labs CBC & Chem 7: 01/20/23 06:02 01/21/23 06:15 Labs: Abnormal Lab Results - Last 24 Hours (Table) 01/16/23 01/19/23 01/19/23 Range/Units 18:37 06:45 06:45 WBC 26.19 H (4.50-10.00) X 10*3/uL RBC 2.49 L (4.10-5.20) X 10*6/uL Hgb 6.5 L* (12.0-15.0) g/dL Hct 21.9 L (37.2-46.3) % MCH 26.1 L (27.0-32.0) pg MCHC 29.7 L (32.0-37.0) g/dL RDW 17.9 H (11.5-14.5) % Sodium 146 H (137-145) mmol/L Potassium 3.0 L (3.5-5.1) mmol/L Chloride 111 H (98-107) mmol/L BUN 30 H (7-17) mg/dL Creatinine 1.29 H (0.52-1.04) mg/dL Glucose 171 H (74-99) mg/dL POC Glucose (mg/dL) (70-110) mg/dL Calcium 8.3 L (8.4-10.2) mg/dL Total Bilirubin 6.1 H (0.2-1.3) mg/dL AST 105 H (14-36) U/L ALT 108 H (4-34) U/L Alkaline Phosphatase 1283 H (38-126) U/L Total Protein 6.2 L (6.3-8.2) g/dL Albumin 2.3 L (3.5-5.0) g/dL Crossmatch See Detail 01/19/23 01/19/23 01/20/23 Range/Units 12:03 17:16 00:18 WBC (4.50-10.00) X 10*3/uL RBC (4.10-5.20) X 10*6/uL Hgb (12.0-15.0) g/dL Hct (37.2-46.3) % MCH (27.0-32.0) pg MCHC (32.0-37.0) g/dL RDW (11.5-14.5) % Sodium (137-145) mmol/L Potassium (3.5-5.1) mmol/L Chloride (98-107) mmol/L BUN (7-17) mg/dL Creatinine (0.52-1.04) mg/dL Glucose (74-99) mg/dL POC Glucose (mg/dL) 197 H 174 H 143 H (70-110) mg/dL Calcium (8.4-10.2) mg/dL Total Bilirubin (0.2-1.3) mg/dL AST (14-36) U/L ALT (4-34) U/L Alkaline Phosphatase (38-126) U/L Total Protein (6.3-8.2) g/dL Albumin (3.5-5.0) g/dL Crossmatch 01/20/23 Range/Units 05:53 WBC (4.50-10.00) X 10*3/uL RBC (4.10-5.20) X 10*6/uL Hgb (12.0-15.0) g/dL Hct (37.2-46.3) % MCH (27.0-32.0) pg MCHC (32.0-37.0) g/dL RDW (11.5-14.5) % Sodium (137-145) mmol/L Potassium (3.5-5.1) mmol/L Chloride (98-107) mmol/L BUN (7-17) mg/dL Creatinine (0.52-1.04) mg/dL Glucose (74-99) mg/dL POC Glucose (mg/dL) 152 H (70-110) mg/dL Calcium (8.4-10.2) mg/dL Total Bilirubin (0.2-1.3) mg/dL AST (14-36) U/L ALT (4-34) U/L Alkaline Phosphatase (38-126) U/L Total Protein (6.3-8.2) g/dL Albumin (3.5-5.0) g/dL Crossmatch Microbiology - Last 24 Hours (Table) 01/17/23 06:36 Blood Culture - Preliminary Blood No Growth after 48 hours
[2023-01-20 15:25] LABS: Magnesium 2.1 mg/dL (1.5-2.4); Phosphorus 2.9 mg/dL (2.4-5.1)
[2023-01-20 16:37] LABS: Albumin 1.9 g/dL (3.8-4.9); Albumin/Globulin Ratio 0.49 (1.60-3.17); Anion Gap 11.2 mmol/L (10.00-18.00); BUN/Creat Ratio 25.37 Ratio (12.00-20.00); Blood Urea Nitrogen 30.7 mg/dL (9.0-27.0); Calcium 8.6 mg/dL (8.7-10.3); Non-African American GFR(CKD) 46.6 (60.0-200.0); Potassium 3.4 mmol/L (3.5-5.5); Total Bilirubin 6.3 mg/dL (0.30-1.20); Total Protein 5.9 g/dL (6.2-8.2)
[2023-01-20 17:26] LABS: Glucose,Whole Blood 147 mg/dL (70-110)
[2023-01-21 02:18] LABS: Glucose,Whole Blood 145 mg/dL (70-110)
[2023-01-21] MEDS: HYDROmorphone 0.5 MG/0.5 ML SYRINGE IVP PRN ×5 (02:52→19:40)
[2023-01-21 05:44] LABS: Glucose,Whole Blood 159 mg/dL (70-110)
[2023-01-21] MEDS: [UNRECOGNIZED DRUG - REMARK] IV SCH ×10 (06:14→17:22)
[2023-01-21 06:34] LABS: Ionized Calcium 5.2 mg/dL (4.5-5.3)
[2023-01-21 06:42] LABS: ALT 127 U/L (4-34); AST 160 U/L (14-36); African American GFR (CKD) 67 (>60 ml/min/1.73 sqM); Albumin 2.2 g/dL (3.5-5.0); Albumin/Globulin Ratio 0.6; Alkaline Phosphatase 1480 U/L (38-126); Anion Gap 7 mmol/L; Blood Urea Nitrogen 34 mg/dL (7-17); Calcium 8.1 mg/dL (8.4-10.2); Carbon Dioxide 29 mmol/L (22-30); Chloride 105 mmol/L (98-107); Globulin 3.9 g/dL; Glucose 161 mg/dL (74-99); Magnesium 1.9 mg/dL (1.6-2.3); Non-African American GFR(CKD) 58 (>60 ml/min/1.73 sqM); Phosphorus 3.3 mg/dL (2.5-4.5); Potassium 3.3 mmol/L (3.5-5.1); Sodium 141 mmol/L (137-145); Total Protein 6.1 g/dL (6.3-8.2)
[2023-01-21] MEDS: LIDOCAINE 5% PATCH TOPICAL SCH (07:32)
[2023-01-21] MEDS: ENOXAPARIN 40 MG/0.4 ML SYRINGE SQ SCH (07:33)
[2023-01-21 10:42] LABS: HCT 26.2 % (37.2-46.3); MCH 26.6 pg (27.0-32.0); MCHC 30.5 g/dL (32.0-37.0); Mean Platelet Volume 11.1 fL (9.5-12.2); NRBC Per 100 WBC 0 /100 WBCS (0.0-0.0); Platelet Count 343 X 10*3/uL (140-440); RBC 3.01 X 10*6/uL (4.10-5.20); RDW 17.2 % (11.5-14.5); WBC 22.79 X 10*3/uL (4.50-10.00)
[2023-01-21 12:22] LABS: Glucose,Whole Blood 177 mg/dL (70-110)
--- NOTE | 2023-01-21 14:39 | P.PN ---
Subjective Progress Note Date: 01/21/23 Hospital course: Patient is a very pleasant 67-year-old female with a past medical history of metastatic renal cancer currently on palliative care. She presented to the emergency department secondary to findings of uncontrolled pain, weakness, and abnormal labs. Upon arrival to the emergency department patient underwent full evaluation. CBC revealed significant leukocytosis with WBC count of 25.8 predominantly neutrophilic with neutrophils of 24.1, normocytic anemia with hemoglobin of 7.1. BMP revealing hypernatremia with sodium of 150 and hyperchloremia with chloride of 114 with prerenal azotemia with BUN of 38. Patient also with lactic acidosis with plasma lactic acid of 2.7. Liver profile revealing hyperbilirubinemia with bilirubin of 5.7 and transaminitis with AST of 135, ALT of 131, an alkaline phosphatase of 1538. Patient was admitted under our services with consultation to oncology and palliative care. Liver ultrasound completed and reviewed. Radiology report stating new moderate biliary dilation presumed from local neoplastic progression causing CBD obstruction. Order was initially placed for CT abdomen and pelvis to further evaluate CBD obstruction and possible metastatic progression, however patient declined at this time. Tushar phelps met with palliative care and plan is for discharge tomorrow morning to extended care facility for continued palliative care/treatment. Physical exam: Patient seen and evaluated at bedside this morning. Patient resting at this time, easily awoken and denied any complaints. Morning labs reviewed. Hemoglobin stable at 8.0. Plan for discharge tomorrow morning to extended care facility for continued palliative care/treatment. Vital signs reviewed and stable. General: Nontoxic, no distress and appears stated age. Derm: Skin warm and dry, normal coloration for ethnicity. Head: Atraumatic, normocephalic and symmetric. Eyes: EOMs intact, no lid lag, and anicteric sclera Mouth: no lip lesions, mucus membranes moist Cardiovascular: regular rate and rhythm with normal S1S2, no murmur, positive posterior tibial pulses bilaterally, and cap refill < 2 seconds. Lungs: Respirations even, regular, and unlabored on room air. Lungs CTA giovanny aterally, no rhonchi, no rales, no wheezing, and no accessory muscle usage. Abdominal: soft, nontender to palpation, no guarding, no appreciable organomegaly Ext: ROM intact. No gross muscle atrophy, no edema, no contractures Neuro: Speech clear, face symmetrical and CN II-XII grossly intact with no noted focal neuro deficits Psych: Alert and oriented to person, place, time, and situation. Appropriate and pleasant affect. Assessment and Plan of Care: Metastatic renal cancer Acute on Chronic anemia, secondary to metastatic cancer Leukocytosis predominantly neutrophilic, secondary to metastatic cancer Intractable abdominal pain and left shoulder pain, secondary to metastatic cancer Transaminitis, secondary to advancement of metastatic cancer and CBD obstruction -Liver ultrasound completed 01/17/23 and reviewed. Radiology report stating new moderate biliary dilation presumed from local neoplastic progression causing CBD obstruction. -Morning labs completed and reviewed. Morning CBC completed and reviewed showing a stable hemoglobin of 8.0 and continued leukocytosis with WBC count of 22.79 CMP showing slightly worsening liver enzymes with total bili of 7.0, AST of 160, ALT of 127, and alkaline phosphatase of 1480. -Status post transfusion of 2 units PRBCs hemoglobin currently stable at 8.0. -Order placed for Repeat CBC to monitor closely for improvement of acute on chronic anemia. -Patient was started on TPN with lipids on 01/17/23, and electrolytes to be replaced via TPN. -Palliative care following, patient to be discharged to correction facility on palliative care likely tomorrow morning. -Patient appears to be understanding of her terminal illness and states that she will transition to hospice when she feels is ready. -Patient underwent palliative radiation on 01/18/23 and again on 01/19/23. -Oncology following, recommending palliative care -Symptomatic care and pain management. Patient's pain medication was not lasting every 6 hours and orders placed for Dilaudid 0.5 mg every 3 hours as needed for pain/discomfort. Hypernatremia, resolved Hyperchloremia, resolved Prerenal azotemia, improved after IV fluid hydration and initiation of TPN Hypokalemia, being replaced by TPN -Morning labs reviewed. BMP revealing hypernatremia with sodium of 141. Potassium 3.3, BUN 34, creatinine 1.02, GFR 58. Magnesium 1.9. -Patient has been started on TPN with lipids. IV fluids were discontinued. We will repeat morning CMP for close follow-up of labs in place additional orders based upon these findings. Lactic acidosis, resolved with IV fluid hydration. CODE STATUS: DO NOT RESUSCITATE/DO NOT INTUBATE DVT prophylaxis: Lovenox Anticipated discharge date: Clinical course to determine Anticipated discharge place: Home Patient was seen independently by Nurse Pracitioner. This document was prepared using [employer] dictation software. Please allow for errors in worm packer, while rare they do occur. Say Salmeron CEMENT SIDE LASTER rendered care for this patient independently, reviewed the findings and plan as documented in the note above. I did not physically speak with or examine the patient on this date. Objective - Vital Signs Vital signs: Vital Signs Temp 97.9 F 01/21/23 07:25 Pulse 93 01/21/23 07:25 Resp 16 01/21/23 07:25 BP 116/65 01/21/23 07:25 Pulse Ox 96 01/21/23 07:25 FiO2 Intake & Output 01/20/23 01/21/23 01/21/23 18:59 06:59 18:59 Intake Total 1013 3061 Output Total 800 2750 Balance 213 311 Weight 92.079 kg Intake: Intake, IV Titration 1013 3061 Amount Mvi, Adult No.4 with Vit 1024 K 10 ml Trace (Conc-1Ml/ Dose) 1 ml Potassium Acetate 16 meq Potassium Phosphate 15 mmol In Amino Acids 5 %/Dextrose 20 % 1,000 ml @ 94 mls/hr IV .BY DURATION [facility] Rx#: [id number] Potassium Acetate 16 meq 1013 1013 Potassium Phosphate 15 mmol In Amino Acids 5 %/ Dextrose 20 % 1,000 ml @ 94 mls/hr IV .BY DURATION [facility] Rx#:[id number] Potassium Acetate 16 meq 1024 Potassium Phosphate 6 mmol Calcium Gluconate 1 gm In Amino Acids 5 %/ Dextrose 20 % 1,000 ml @ 94 mls/hr IV .BY DURATION [facility] Rx#:[id number] Output: Gastric Drainage 1150 Drainage 800 1600 Abdomen 800 1600 Other: Voiding Method Bedside Commode # Voids 3 1 - Labs CBC & Chem 7: 01/22/23 05:53 01/22/23 05:53 Labs: Abnormal Lab Results - Last 24 Hours (Table) 01/20/23 01/20/23 01/20/23 Range/Units 06:02 06:02 12:42 WBC 24.16 H (4.50-10.00) X 10*3/uL RBC 2.94 L (4.10-5.20) X 10*6/uL Hgb 7.9 L (12.0-15.0) g/dL Hct 25.7 L (37.2-46.3) % MCH 26.9 L (27.0-32.0) pg MCHC 30.7 L (32.0-37.0) g/dL RDW 17.2 H (11.5-14.5) % Potassium 3.4 L (3.5-5.5) mmol/L BUN 30.7 H (9.0-27.0) mg/dL Est GFR (CKD-EPI)AfAm 54.0 L (60.0-200.0) Est GFR (CKD-EPI)NonAf 46.6 L (60.0-200.0) BUN/Creatinine Ratio 25.37 H (12.00-20.00) Ratio Glucose 149 H (70-110) mg/dL POC Glucose (mg/dL) 167 H (70-110) mg/dL Calcium 8.6 L (8.7-10.3) mg/dL Total Bilirubin 6.30 H (0.30-1.20) mg/dL AST 115 H (13-35) U/L ALT 111 H (8-44) U/L Alkaline Phosphatase 1273 H (41-126) U/L Total Protein 5.9 L (6.2-8.2) g/dL Albumin 1.9 L (3.8-4.9) g/dL Globulin 4.0 H (1.6-3.3) g/dL Albumin/Globulin Ratio 0.49 L (1.60-3.17) g/dL 01/20/23 01/21/23 01/21/23 Range/Units 17:25 02:15 05:42 WBC (4.50-10.00) X 10*3/uL RBC (4.10-5.20) X 10*6/uL Hgb (12.0-15.0) g/dL Hct (37.2-46.3) % MCH (27.0-32.0) pg MCHC (32.0-37.0) g/dL RDW (11.5-14.5) % Potassium (3.5-5.5) mmol/L BUN (9.0-27.0) mg/dL Est GFR (CKD-EPI)AfAm (60.0-200.0) Est GFR (CKD-EPI)NonAf (60.0-200.0) BUN/Creatinine Ratio (12.00-20.00) Ratio Glucose (70-110) mg/dL POC Glucose (mg/dL) 147 H 145 H 159 H (70-110) mg/dL Calcium (8.7-10.3) mg/dL Total Bilirubin (0.30-1.20) mg/dL AST (13-35) U/L ALT (8-44) U/L Alkaline Phosphatase (41-126) U/L Total Protein (6.2-8.2) g/dL Albumin (3.8-4.9) g/dL Globulin (1.6-3.3) g/dL Albumin/Globulin Ratio (1.60-3.17) g/dL 01/21/23 Range/Units 06:15 WBC (4.50-10.00) X 10*3/uL RBC (4.10-5.20) X 10*6/uL Hgb (12.0-15.0) g/dL Hct (37.2-46.3) % MCH (27.0-32.0) pg MCHC (32.0-37.0) g/dL RDW (11.5-14.5) % Potassium 3.3 L (3.5-5.5) mmol/L BUN 34 H (9.0-27.0) mg/dL Est GFR (CKD-EPI)AfAm (60.0-200.0) Est GFR (CKD-EPI)NonAf (60.0-200.0) BUN/Creatinine Ratio (12.00-20.00) Ratio Glucose 161 H (70-110) mg/dL POC Glucose (mg/dL) (70-110) mg/dL Calcium 8.1 L (8.7-10.3) mg/dL Total Bilirubin 7.0 H (0.30-1.20) mg/dL AST 160 H (13-35) U/L ALT 127 H (8-44) U/L Alkaline Phosphatase 1480 H (41-126) U/L Total Protein 6.1 L (6.2-8.2) g/dL Albumin 2.2 L (3.8-4.9) g/dL Globulin (1.6-3.3) g/dL Albumin/Globulin Ratio (1.60-3.17) g/dL Microbiology - Last 24 Hours (Table) 01/17/23 06:36 Blood Culture - Preliminary Blood No Growth after 72 hours
[2023-01-21] MEDS: POTASSIUM CHLORIDE 20 MEQ in WATER FOR INJECTION 1 100ML.BAG IVPB SCH ×2 (15:16→17:22)
[2023-01-21 17:29] LABS: Glucose,Whole Blood 84 mg/dL (70-110)
[2023-01-21] MEDS: ONDANSETRON 4 MG/2 ML VIAL IVP PRN (19:42)
[2023-01-22 00:21] LABS: Glucose,Whole Blood 159 mg/dL (70-110)
[2023-01-22] MEDS: HYDROmorphone 0.5 MG/0.5 ML SYRINGE IVP PRN ×7 (01:56→23:28)
[2023-01-22] MEDS: [UNRECOGNIZED DRUG - REMARK] IV SCH ×10 (04:11→16:11)
[2023-01-22] MEDS: FAT EMULSION 20% 250 ML in EMPTY BAG 1 BAG IV SCH (04:49)
[2023-01-22 05:26] LABS: Glucose,Whole Blood 159 mg/dL (70-110)
[2023-01-22 07:05] LABS: ALT 147 U/L (4-34); AST 176 U/L (14-36); African American GFR (CKD) 65 (>60 ml/min/1.73 sqM); Albumin 2.2 g/dL (3.5-5.0); Albumin/Globulin Ratio 0.6; Anion Gap 8 mmol/L; Blood Urea Nitrogen 36 mg/dL (7-17); Calcium 8.3 mg/dL (8.4-10.2); Carbon Dioxide 30 mmol/L (22-30); Chloride 102 mmol/L (98-107); Globulin 3.9 g/dL; Glucose 154 mg/dL (74-99); Magnesium 1.9 mg/dL (1.6-2.3); Non-African American GFR(CKD) 56 (>60 ml/min/1.73 sqM); Phosphorus 3.8 mg/dL (2.5-4.5); Potassium 4.1 mmol/L (3.5-5.1); Sodium 140 mmol/L (137-145); Total Bilirubin 7.4 mg/dL (0.2-1.3); Total Protein 6.1 g/dL (6.3-8.2)
[2023-01-22 07:13] LABS: Alkaline Phosphatase 1330 U/L (38-126)
[2023-01-22] MEDS: LIDOCAINE 5% PATCH TOPICAL SCH (08:33)
[2023-01-22] MEDS: ENOXAPARIN 40 MG/0.4 ML SYRINGE SQ SCH (08:33)
[2023-01-22] MEDS: ONDANSETRON 4 MG/2 ML VIAL IVP PRN ×2 (08:56→17:39)
[2023-01-22 11:12] LABS: HCT 26.3 % (37.2-46.3); HGB 8.1 g/dL (12.0-15.0); MCH 27.1 pg (27.0-32.0); MCHC 30.8 g/dL (32.0-37.0); Mean Platelet Volume 11.5 fL (9.5-12.2); NRBC Per 100 WBC 0 /100 WBCS (0.0-0.0); Platelet Count 312 X 10*3/uL (140-440); RBC 2.99 X 10*6/uL (4.10-5.20); RDW 17.3 % (11.5-14.5); WBC 22.59 X 10*3/uL (4.50-10.00)
[2023-01-22 11:47] LABS: Glucose,Whole Blood 186 mg/dL (70-110)
[2023-01-22 17:15] LABS: Glucose,Whole Blood 175 mg/dL (70-110)
--- NOTE | 2023-01-22 17:17 | P.PN ---
Subjective Progress Note Date: 01/22/23 Hospital course: Patient is a very pleasant 67-year-old female with a past medical history of metastatic renal cancer currently on palliative care. She presented to the emergency department secondary to findings of uncontrolled pain, weakness, and abnormal labs. Upon arrival to the emergency department patient underwent full evaluation. CBC revealed significant leukocytosis with WBC count of 25.8 predominantly neutrophilic with neutrophils of 24.1, normocytic anemia with hemoglobin of 7.1. BMP revealing hypernatremia with sodium of 150 and hyperchloremia with chloride of 114 with prerenal azotemia with BUN of 38. Patient also with lactic acidosis with plasma lactic acid of 2.7. Liver profile revealing hyperbilirubinemia with bilirubin of 5.7 and transaminitis with AST of 135, ALT of 131, an alkaline phosphatase of 1538. Patient was admitted under our services with consultation to oncology and palliative care. Liver ultrasound completed and reviewed. Radiology report stating new moderate biliary dilation presumed from local neoplastic progression causing CBD obstruction. Order was initially placed for CT abdomen and pelvis to further evaluate CBD obstruction and possible metastatic progression, however patient declined at this time. Tushar phelps met with palliative care and plan is for discharge tomorrow morning to extended care facility for continued palliative care/treatment. Physical exam: Patient seen and evaluated at bedside this morning. Patient resting at this time, reports feeling very tired today. Patient is awaiting to go to palliative radiation later this afternoon. Plan for discharge tomorrowto extended care facility vs inpatient rehab. Pt is awaiting evaluation by Dr. Dorantes. Patient is a poor candidate for inpatient rehab his condition is not rehabable. Patient expresses understanding but would like to continue with evaluation. Discussed with case management. Vital signs reviewed and stable. General: Nontoxic, no distress and appears stated age. Derm: Skin warm and dry, normal coloration for ethnicity. Head: Atraumatic, normocephalic and symmetric. Eyes: EOMs intact, no lid lag, and anicteric sclera Mouth: no lip lesions, mucus membranes moist Cardiovascular: regular rate and rhythm with normal S1S2, no murmur, positive posterior tibial pulses bilaterally, and cap refill < 2 seconds. Lungs: Respirations even, regular, and unlabored on room air. Lungs CTA bilaterally, no rhonchi, no rales, no wheezing, and no accessory muscle usage. Abdominal: soft, nontender to palpation, no guarding, no appreciable organomegaly Ext: ROM intact. No gross muscle atrophy, no edema, no contractures Neuro: Speech clear, face symmetrical and CN II-XII grossly intact with no noted focal neuro deficits Psych: Alert and oriented to person, place, time, and situation. Appropriate and pleasant affect. Assessment and Plan of Care: Metastatic renal cancer Acute on Chronic anemia, secondary to metastatic cancer Leukocytosis predominantly neutrophilic, secondary to metastatic cancer Intractable abdominal pain and left shoulder pain, secondary to metastatic cancer Transaminitis, secondary to advancement of metastatic cancer and CBD obstruction Prerenal azotemia -Liver ultrasound completed 01/17/23 and reviewed. Radiology report stating new moderate biliary dilation presumed from local neoplastic progression causing CBD obstruction. -Morning labs completed and reviewed. Morning CBC completed and reviewed showing a stable hemoglobin of 8.1 and continued leukocytosis with WBC count of 22.59 CMP showing slightly worsening liver enzymes with total bili of 7.4, AST of 176, ALT of 147, and alkaline phosphatase of 1330. -Status post transfusion of 2 units PRBCs hemoglobin currently stable at 8.1. -Order placed for Repeat CBC to monitor closely for improvement of acute on chronic anemia. -Patient was started on TPN with lipids on 01/17/23, and electrolytes to be repla mitzi via TPN. -Palliative care following, patient to be discharged to fdc facility on palliative care likely tomorrow morning. Discussed with social work, patient requesting inpatient rehab and awaiting Dr. Dorantes to evaluate. -Patient appears to be understanding of her terminal illness and states that she will transition to hospice when she feels is ready. -Patient underwent palliative radiation on 01/18/23 and again on 01/19/23 and is scheduled to undergo third dose of palliative radiation this afternoon. -Oncology following, recommending palliative care -Symptomatic care and pain management. Patient's pain medication was not lasting every 6 hours and orders placed for Dilaudid 0.5 mg every 3 hours as needed for pain/discomfort. Hypernatremia, resolved Hyperchloremia, resolved Hypokalemia, resolved Lactic acidosis, resolved with IV fluid hydration. CODE STATUS: DO NOT RESUSCITATE/DO NOT INTUBATE DVT prophylaxis: Lovenox Anticipated discharge date: Patient to be discharged once accepted to inpatient rehab versus fdc facility. Anticipated discharge place: SNF versus inpatient rehab Patient was seen independently by Nurse Pracitioner. This document was prepared using [employer] dictation software. Please allow for errors in drafter geophysical, while rare they do occur. Say Salmeron TECHNICAL WRITER AND EDITOR rendered care for this patient independently, reviewed the findings and plan as documented in the note above. I did not physically speak with or examine the patient on this date. Objective - Vital Signs Vital signs: Vital Signs Temp 98.2 F 01/22/23 07:10 Pulse 95 01/22/23 07:10 Resp 18 01/22/23 07:10 BP 104/64 01/22/23 07:10 Pulse Ox 96 01/22/23 07:10 FiO2 Intake & Output 01/21/23 01/22/23 01/22/23 18:59 06:59 18:59 Intake Total 2341 Output Total 1050 1000 Balance 1291 -1000 Intake: Intake, IV Titration 2341 Amount Potassium Acetate 16 meq 1013 Potassium Phosphate 15 mmol In Amino Acids 5 %/ Dextrose 20 % 1,000 ml @ 94 mls/hr IV .BY DURATION [facility] Rx#:[id number] Potassium Acetate 16 meq 1128 Potassium Phosphate 6 mmol Calcium Gluconate 1 gm In Amino Acids 5 %/ Dextrose 20 % 1,000 ml @ 94 mls/hr IV .BY DURATION [facility] Rx#:[id number] Potassium Chloride 20 meq 200 In Water For Injection 1 100ml.bag @ 50 mls/hr IVPB Q2H [facility] Rx#: [id number] Output: Gastric Drainage 800 Drainage 800 Abdomen 800 Urine 250 200 Other: Voiding Method Bedside Commode Bedside Commode # Voids 1 1 1 - Labs CBC & Chem 7: 01/24/23 05:25 01/25/23 05:11 Labs: Abnormal Lab Results - Last 24 Hours (Table) 01/21/23 01/21/23 01/22/23 Range/Units 06:15 12:21 00:20 WBC 22.79 H (4.50-10.00) X 10*3/uL RBC 3.01 L (4.10-5.20) X 10*6/uL Hgb 8.0 L (12.0-15.0) g/dL Hct 26.2 L (37.2-46.3) % MCH 26.6 L (27.0-32.0) pg MCHC 30.5 L (32.0-37.0) g/dL RDW 17.2 H (11.5-14.5) % BUN (7-17) mg/dL Glucose (74-99) mg/dL POC Glucose (mg/dL) 177 H 159 H (70-110) mg/dL Calcium (8.4-10.2) mg/dL Total Bilirubin (0.2-1.3) mg/dL AST (14-36) U/L ALT (4-34) U/L Alkaline Phosphatase (38-126) U/L Total Protein (6.3-8.2) g/dL Albumin (3.5-5.0) g/dL 01/22/23 01/22/23 Range/Units 05:24 05:53 WBC (4.50-10.00) X 10*3/uL RBC (4.10-5.20) X 10*6/uL Hgb (12.0-15.0) g/dL Hct (37.2-46.3) % MCH (27.0-32.0) pg MCHC (32.0-37.0) g/dL RDW (11.5-14.5) % BUN 36 H (7-17) mg/dL Glucose 154 H (74-99) mg/dL POC Glucose (mg/dL) 159 H (70-110) mg/dL Calcium 8.3 L (8.4-10.2) mg/dL Total Bilirubin 7.4 H (0.2-1.3) mg/dL AST 176 H (14-36) U/L ALT 147 H (4-34) U/L Alkaline Phosphatase 1330 H (38-126) U/L Total Protein 6.1 L (6.3-8.2) g/dL Albumin 2.2 L (3.5-5.0) g/dL Microbiology - Last 24 Hours (Table) 01/17/23 06:36 Blood Culture - Preliminary Blood No Growth after 96 hours
[2023-01-23] MEDS ORDERED: MORPHINE SULFATE 2 MG/ML SYRINGE IVP STA (00:32)
[2023-01-23 00:48] LABS: Glucose,Whole Blood 167 mg/dL (70-110)
[2023-01-23] MEDS: ONDANSETRON 4 MG/2 ML VIAL IVP PRN ×2 (02:28→20:18)
[2023-01-23] MEDS: HYDROmorphone 0.5 MG/0.5 ML SYRINGE IVP PRN ×5 (02:28→20:20)
[2023-01-23] MEDS: [UNRECOGNIZED DRUG - REMARK] IV SCH ×10 (02:28→17:32)
--- NOTE | 2023-01-23 05:58 | P.CONS ---
History of Present Illness - Chief Complaint General weakness and walking difficulty - History of Present Illness I had the opportunity see patient for inpatient rehab consultation. Patient admitted to [facility] January 16 with low hemoglobin and elevated bilirubin and recently diagnosed renal sarcoma. Patient admitted with abdominal pain. Admitted to Dr. Conteh. Seen by oncology as well as palliative care. In recommending rehab and home with palliative care and possible hospice. Diagnostic tests venous Doppler negative for right leg DVT. Liver ultrasound demonstrates common bile duct dilatation 15 mm and right renal mass. Has started therapy. PT reports moderate assistance for bed mobility and supervision for transfer and gait 126 feet total roller walker. OT reports independent with feeding, supervision for grooming, moderate assist for lower dressing but minimal assistance for upper dressing, bathing, toileting and functional mobility/transfers. Previous functional history as elicited from patient: 67 year old right-handed white female is single lives in one floor home alone. Retired. Receives TPN. Describes independent with sponge bath and gait with roller walker. His sist er-in-law or friends and family who help with cooking, driving, etc. PCP Page Whiteside. Review of Systems Review of systems: ENT: Denies sneezes or discharge. Eyes: Denies discharge or photophobia. Cardiac: Denies chest pain or palpitation. Pulmonary: Denies cough or shortness of breath. Breast: Denies discharge or lumps. Gastrointestinal: Receiving TPN. Genitourinary: Denies discharge or frequency. Musculoskeletal: Denies muscle or bone aches. Neurologic: Gen. weakness. Endocrine: Denies shakes or sweats. Oncology: Denies cancers. Dermatologic: Denies rash, itching, pruritus. ALLERGY/immunology: Denies sneezes, rashes. Past Medical History Past Medical History: Cancer, Hyperlipidemia, Hypertension, Thyroid Disorder Additional Past Medical History / Comment(s): Kidney Cancer - on Palliative care History of Any Multi-Drug Resistant Organisms: None Reported Past Surgical History: No Surgical Hx Reported Additional Past Surgical History / Comment(s): laproscopy Past Anesthesia/Blood Transfusion Reactions: No Reported Reaction Past Psychological History: No Psychological Hx Reported Smoking Status: Never smoker Past Alcohol Use History: None Reported Past Drug Use History: None Reported - Past Family History Mother Family Medical History: Hypertension Medications and Allergies Home Medications Medication Instructions Recorded Confirmed Type Buprenorphine [Butrans 10 MCG/HOUR] 1 patch TRANSDERM TU 11/15/22 01/16/23 History MORPHINE ORAL STEVE 2mg/mL [Morphine 5 mg PO Q6H PRN 11/15/22 01/16/23 History Oral Soln 2 MG/ML] Ondansetron Odt [Zofran ODT] 4 mg PO Q8H PRN 11/15/22 01/16/23 History Allergies Allergy/AdvReac Type Severity Reaction Status Date / Time acetaminophen Allergy Rash/Hives Verified 01/16/23 19:16 Physical Exam Vitals: Vital Signs Temp Pulse Resp BP Pulse Ox 01/23/23 02:00 98.6 F 98 16 106/57 91 L 01/22/23 20:20 16 01/22/23 20:00 98.0 F 100 16 123/66 94 L 01/22/23 11:45 98.6 F 99 18 112/71 95 01/22/23 07:10 98.2 F 95 18 104/64 96 Intake and Output 01/22/23 01/22/23 01/23/23 14:59 22:59 06:59 Intake Total 1128 966.633 Output Total 1000 Balance 128 966.633 Intake: Intake, IV Titration 1128 966.633 Amount Potassium Acetate 16 meq 966.633 Potassium Phosphate 15 mmol In Amino Acids 5 %/ Dextrose 20 % 1,000 ml @ 94 mls/hr IV .BY DURATION [facility] Rx#:[id number] Potassium Acetate 16 meq 1128 Potassium Phosphate 6 mmol Calcium Gluconate 1 gm In Amino Acids 5 %/ Dextrose 20 % 1,000 ml @ 94 mls/hr IV .BY DURATION [facility] Rx#:[id number] Output: Drainage 1000 Abdomen 1000 Other: Voiding Method Bedside Commode Bedside Commode # Voids 1 2 Skin: Good color, texture, turgor. General: Medium build and comfortable appearance. Head: Normocephalic, atraumatic. Eyes: Symmetric. Pupils equal round. Ears: Symmetric. Hearing within normal limits. Mouth: Clear. Neck: Supple. Carotid without bruit. Cardiac: Regular rate and rhythm. Lungs: Clear anteriorly and posteriorly. Abdomen: Soft active nontender, protuberant. Extremities: Normal tone. Neurological: Mental status: Alert, cooperative, pleasant. Cranial nerves: Symmetric facial tone and trapezius. Motor: Normal strength and isolation all 4 limbs of at least antigravity. Sensation: Intact throughout. DTRs: Symmetric and equal throughout. Mobility: Requires physical assistance for bed mobility. Results CBC & Chem 7: 01/22/23 05:53 01/22/23 05:53 Labs: Abnormal Lab Results - Last 24 Hours (Table) 01/22/23 01/22/23 01/22/23 Range/Units 05:53 05:53 11:46 WBC 22.59 H (4.50-10.00) X 10*3/uL RBC 2.99 L (4.10-5.20) X 10*6/uL Hgb 8.1 L (12.0-15.0) g/dL Hct 26.3 L (37.2-46.3) % MCHC 30.8 L (32.0-37.0) g/dL RDW 17.3 H (11.5-14.5) % BUN 36 H (7-17) mg/dL Glucose 154 H (74-99) mg/dL POC Glucose (mg/dL) 186 H (70-110) mg/dL Calcium 8.3 L (8.4-10.2) mg/dL Total Bilirubin 7.4 H (0.2-1.3) mg/dL AST 176 H (14-36) U/L ALT 147 H (4-34) U/L Alkaline Phosphatase 1330 H (38-126) U/L Total Protein 6.1 L (6.3-8.2) g/dL Albumin 2.2 L (3.5-5.0) g/dL 01/22/23 01/23/23 Range/Units 17:14 00:46 WBC (4.50-10.00) X 10*3/uL RBC (4.10-5.20) X 10*6/uL Hgb (12.0-15.0) g/dL Hct (37.2-46.3) % MCHC (32.0-37.0) g/dL RDW (11.5-14.5) % BUN (7-17) mg/dL Glucose (74-99) mg/dL POC Glucose (mg/dL) 175 H 167 H (70-110) mg/dL Calcium (8.4-10.2) mg/dL Total Bilirubin (0.2-1.3) mg/dL AST (14-36) U/L ALT (4-34) U/L Alkaline Phosphatase (38-126) U/L Total Protein (6.3-8.2) g/dL Albumin (3.5-5.0) g/dL Microbiology - Last 24 Hours (Table) 01/17/23 06:36 Blood Culture - Preliminary Blood No Growth after 120 hours Assessment and Plan (1) Anemia Current Visit: Yes Status: Acute Priority: High Code(s): D64.9 - ANEMIA, UNSPECIFIED SNOMED Code(s): 130291957 (2) Cancer associated pain Current Visit: Yes Status: Acute Code(s): G89.3 - NEOPLASM RELATED PAIN (ACUTE) (CHRONIC) SNOMED Code(s): 87288442738469 (3) Renal cancer Current Visit: Yes Status: Acute Priority: High Code(s): C64.9 - MALIGNANT NEOPLASM OF UNSP KIDNEY, EXCEPT RENAL PELVIS SNOMED Code(s): 764737895 (4) Weakness Current Visit: Yes Status: Acute Priority: High Code(s): R53.1 - WEAKNESS SNOMED Code(s): 68757198 (5) Fall Current Visit: No Status: Acute Code(s): W19.XXXA - UNSPECIFIED FALL, INITIAL ENCOUNTER SNOMED Code(s): 9197808 (6) Metastasis Current Visit: No Status: Acute Code(s): C79.9 - SECONDARY MALIGNANT NEOPLASM OF UNSPECIFIED SITE SNOMED Code(s): 401626555 Plan: Comments and plan: At this time safety concerns are noted. Patient has demonstrated ability tolerate and benefit from therapies. Have discussed possible inpatient rehab with patient and she seems agreeable. Have discussed must review his insurance and insurance criteria prior to admission for authorization.
[2023-01-23 06:11] LABS: Glucose,Whole Blood 143 mg/dL (70-110)
[2023-01-23 06:43] LABS: ALT 152 U/L (4-34); AST 168 U/L (14-36); African American GFR (CKD) 51 (>60 ml/min/1.73 sqM); Albumin 2.2 g/dL (3.5-5.0); Albumin/Globulin Ratio 0.6; Anion Gap 7 mmol/L; Blood Urea Nitrogen 36 mg/dL (7-17); Calcium 8.4 mg/dL (8.4-10.2); Carbon Dioxide 31 mmol/L (22-30); Chloride 100 mmol/L (98-107); Glucose 136 mg/dL (74-99); Magnesium 1.8 mg/dL (1.6-2.3); Non-African American GFR(CKD) 44 (>60 ml/min/1.73 sqM); Phosphorus 4.2 mg/dL (2.5-4.5); Potassium 4.1 mmol/L (3.5-5.1); Sodium 138 mmol/L (137-145); Total Bilirubin 7.6 mg/dL (0.2-1.3); Total Protein 6.2 g/dL (6.3-8.2)
[2023-01-23 06:49] LABS: Alkaline Phosphatase 1319 U/L (38-126)
[2023-01-23] MEDS: LIDOCAINE 5% PATCH TOPICAL SCH (11:29)
[2023-01-23] MEDS: ENOXAPARIN 40 MG/0.4 ML SYRINGE SQ SCH (11:31)
[2023-01-23 11:57] LABS: Glucose,Whole Blood 76 mg/dL (70-110)
[2023-01-23] MEDS: HYDROmorphone 2 MG TAB PO PRN (12:04)
--- NOTE | 2023-01-23 13:47 | P.PN ---
Subjective Progress Note Date: 01/23/23 Patient's complaints of abdominal pain today. Case management is working on despite this time but having trouble due to TPN requirement. Ongoing GJ tube for suction. Gen: awake, alert HEENT: normocephalic, atraumatic, good hearing acuity, moist mucous membranes Resp: good air exchange, breathing comfortably with no accessory muscle use CVS: good distal perfusion x 4, GI: soft, NTTP, ND : no SPT, no CVAT, jackman catheter not present MSK: no pitting edema, no clubbing Neuro: non-focal, moving all extremities Psych: cooperative, euthymic mood Hospital course: Patient is a very pleasant 67-year-old female with a past medical history of metastatic renal cancer currently on palliative care. She presented to the emergency department secondary to findings of uncontrolled pain, weakness, and abnormal labs. Upon arrival to the emergency department patient underwent full evaluation. CBC revealed significant leukocytosis with WBC count of 25.8 predominantly neutrophilic with neutrophils of 24.1, normocytic anemia with hemoglobin of 7.1. BMP revealing hypernatremia with sodium of 150 and hyp erchloremia with chloride of 114 with prerenal azotemia with BUN of 38. Patient also with lactic acidosis with plasma lactic acid of 2.7. Liver profile revealing hyperbilirubinemia with bilirubin of 5.7 and transaminitis with AST of 135, ALT of 131, an alkaline phosphatase of 1538. Patient was admitted under our services with consultation to oncology and palliative care. Liver ultrasound completed and reviewed. Radiology report stating new moderate biliary dilation presumed from local neoplastic progression causing CBD obstruction. Order was initially placed for CT abdomen and pelvis to further evaluate CBD obstruction and possible metastatic progression, however patient declined at this time. Patient met with palliative care and plan is for discharge tomorrow morning to extended care facility for continued palliative care/treatment. Assessment: Metastatic renal cancer Acute on Chronic anemia, secondary to metastatic cancer Leukocytosis predominantly neutrophilic, secondary to metastatic cancer Intractable abdominal pain and left shoulder pain, secondary to metastatic canc er Transaminitis, secondary to advancement of metastatic cancer and CBD obstruction Prerenal azotemia Plan: Patient is afebrile, 117/71, 104, 93% on room air Patient metabolic panel shows CO2 of 31, BUN 36, creatinine of 1.28 Liver function tests show ALT of 152, AST of 168, alkaline phosphatase 1319, total protein 6.2, albumin of 2.2. Repeat CBC, basic metabolic panel, liver function test tomorrow Continue TPN, monitor electrodes for toxicity Continue Dilaudid 0.5 mg every 3 hours when necessary Add Dilaudid by mouth 1 mg every 4 hours when necessary for pain Continue buprenorphine patch Patient is DO NOT RESUSCITATE/DO NOT INTUBATE DVT prophylaxis with enoxaparin Objective - Vital Signs Vital signs: Vital Signs Temp 98.3 F 01/23/23 13:38 Pulse 104 H 01/23/23 13:38 Resp 14 01/23/23 13:38 BP 117/71 01/23/23 13:38 Pulse Ox 93 L 01/23/23 13:38 FiO2 Intake & Output 01/22/23 01/23/23 01/23/23 18:59 06:59 18:59 Intake Total 1128 1592.633 Output Total 800 700 500 Balance 328 892.633 -500 Weight 92.079 kg Intake: Intake, IV Titration 1128 1592.633 Amount Potassium Acetate 16 meq 966.633 Potassium Phosphate 15 mmol In Amino Acids 5 %/ Dextrose 20 % 1,000 ml @ 94 mls/hr IV .BY DURATION [facility] Rx#:[id number] Potassium Acetate 16 meq 1128 626 Potassium Phosphate 6 mmol Calcium Gluconate 1 gm In Amino Acids 5 %/ Dextrose 20 % 1,000 ml @ 94 mls/hr IV .BY DURATION [facility] Rx#:[id number] Output: Drainage 800 700 500 Abdomen 800 700 500 Other: Voiding Method Bedside Commode Bedside Commode Bedside Commode # Voids 1 2 1 - Labs CBC & Chem 7: 01/22/23 05:53 01/23/23 06:09 Labs: Abnormal Lab Results - Last 24 Hours (Table) 01/22/23 01/23/23 01/23/23 Range/Units 17:14 00:46 06:09 Carbon Dioxide 31 H (22-30) mmol/L BUN 36 H (7-17) mg/dL Creatinine 1.28 H (0.52-1.04) mg/dL Glucose 136 H (74-99) mg/dL POC Glucose (mg/dL) 175 H 167 H (70-110) mg/dL Total Bilirubin 7.6 H (0.2-1.3) mg/dL AST 168 H (14-36) U/L ALT 152 H (4-34) U/L Alkaline Phosphatase 1319 H (38-126) U/L Total Protein 6.2 L (6.3-8.2) g/dL Albumin 2.2 L (3.5-5.0) g/dL 01/23/23 Range/Units 06:09 Carbon Dioxide (22-30) mmol/L BUN (7-17) mg/dL Creatinine (0.52-1.04) mg/dL Glucose (74-99) mg/dL POC Glucose (mg/dL) 143 H (70-110) mg/dL Total Bilirubin (0.2-1.3) mg/dL AST (14-36) U/L ALT (4-34) U/L Alkaline Phosphatase (38-126) U/L Total Protein (6.3-8.2) g/dL Albumin (3.5-5.0) g/dL Microbiology - Last 24 Hours (Table) 01/17/23 06:36 Blood Culture - Final Blood No Growth after 144 hours
[2023-01-23 17:47] LABS: Glucose,Whole Blood 137 mg/dL (70-110)
[2023-01-24 01:20] LABS: Glucose,Whole Blood 161 mg/dL (70-110)
[2023-01-24] MEDS: HYDROmorphone 0.5 MG/0.5 ML SYRINGE IVP PRN ×7 (01:55→23:17)
[2023-01-24 06:05] LABS: Glucose,Whole Blood 147 mg/dL (70-110)
[2023-01-24] MEDS: [UNRECOGNIZED DRUG - REMARK] IV SCH ×15 (06:50→21:42)
[2023-01-24 07:39] LABS: ALT 147 U/L (4-34); AST 155 U/L (14-36); African American GFR (CKD) 47 (>60 ml/min/1.73 sqM); Albumin 2.3 g/dL (3.5-5.0); Albumin/Globulin Ratio 0.6; Anion Gap 7 mmol/L; Bilirubin,Unconjugated 0.9 mg/dL (0.0-1.1); Blood Urea Nitrogen 40 mg/dL (7-17); Calcium 8.4 mg/dL (8.4-10.2); Carbon Dioxide 29 mmol/L (22-30); Chloride 100 mmol/L (98-107); Glucose 144 mg/dL (74-99); Magnesium 1.9 mg/dL (1.6-2.3); Non-African American GFR(CKD) 41 (>60 ml/min/1.73 sqM); Potassium 4.1 mmol/L (3.5-5.1); Sodium 136 mmol/L (137-145); Total Bilirubin 8.5 mg/dL (0.2-1.3); Total Protein 6.3 g/dL (6.3-8.2)
[2023-01-24 07:41] LABS: Anisocytosis Slight; Basophils % (A) 0 %; Eosinophils # (A) 0.2 k/uL (0-0.7); Eosinophils % (A) 1 %; HCT 25.2 % (34.0-46.0); HGB 7.9 gm/dL (11.4-16.0); Hypochromasia Moderate; Lymphocytes # (A) 0.4 k/uL (1.0-4.8); Lymphocytes % (A) 2 %; MCH 27.8 pg (25.0-35.0); MCHC 31.4 g/dL (31.0-37.0); MCV 88.5 fL (80.0-100.0); Mean Platelet Volume 8.9; Monocytes # (A) 0.6 k/uL (0-1.0); Monocytes % (A) 3 %; Neutrophils # (A) 19.4 k/uL (1.3-7.7); Neutrophils % (A) 93 %; Platelet Count 295 k/uL (150-450); RBC 2.85 m/uL (3.80-5.40); RDW 16.1 % (11.5-15.5); WBC 20.8 k/uL (3.8-10.6)
[2023-01-24 07:51] LABS: Alkaline Phosphatase 1339 U/L (38-126)
[2023-01-24] MEDS: ONDANSETRON 4 MG/2 ML VIAL IVP PRN (11:44)
[2023-01-24] MEDS: ENOXAPARIN 40 MG/0.4 ML SYRINGE SQ SCH (11:44)
[2023-01-24 11:45] LABS: Glucose,Whole Blood 176 mg/dL (70-110)
[2023-01-24] MEDS: LIDOCAINE 5% PATCH TOPICAL SCH (11:45)
--- NOTE | 2023-01-24 12:35 | P.DS ---
Providers Date of admission: 01/19/23 11:33 Expected date of discharge: 01/24/23 Attending physician: Marcia Francis MD Consults: 01/16/23 20:06 Consult Physician Routine Consulting Provider: Fred Van Consult Reason/Comments: known Do you want consulting provider notified?: Yes 01/17/23 09:59 Consult to Palliative Care Routine Consulting Provider: Norma Abarca Consult Reason/Comments: goals of care Do you want consulting provider notified?: Already Contacted 01/22/23 07:44 Consult Physician Routine Consulting Provider: Sp Dorantes Consult Reason/Comments: in pt rehab Do you want consulting provider notified?: Yes Primary care physician: [facility] Course: Assessment: Metastatic renal cancer Acute on Chronic anemia, secondary to metastatic cancer Leukocytosis predominantly neutrophilic, secondary to metastatic cancer Intractable abdominal pain and left shoulder pain, secondary to metastatic cancer Transaminitis, secondary to advancement of metastatic cancer and CBD obstruction Prerenal azotemia Hospital course: Patient is a very pleasant 67-year-old female with a past medical history of metastatic renal cancer currently on palliative care. She presented to the emergency department secondary to findings of uncontrolled pain, weakness, and abnormal labs. Upon arrival to the emergency department patient underwent full evaluation. CBC revealed significant leukocytosis with WBC count of 25.8 predominantly neutrophilic with neutrophils of 24.1, normocytic anemia with hemoglobin of 7.1. BMP revealing hypernatremia with sodium of 150 and hyperchloremia with chloride of 114 with prerenal azotemia with BUN of 38. Patient also with lactic acidosis with plasma lactic acid of 2.7. Liver profile revealing hyperbilirubinemia with bilirubin of 5.7 and transaminitis with AST of 135, ALT of 131, an alkaline phosphatase of 1538. Patient was admitted under our services with consultation to oncology and palliative care. Liver ultrasound completed and reviewed. Radiology report stating new moderate biliary dilation presumed from local neoplastic progression causing CBD obstruction. Order was initially placed for CT abdomen and pelvis to further evaluate CBD obstruction and possible metastatic progression, however patient declined at this time. Patient met with palliative care as well as hospice and plan was to discharge patient home with hospice. I spent 30 minutes coordinating this discharge and 01/24 Gen: awake, alert HEENT: normocephalic, atraumatic, good hearing acuity, moist mucous membranes Resp: good air exchange, breathing comfortably with no accessory muscle use CVS: good distal perfusion x 4, GI: soft, NTTP, ND : no SPT, no CVAT, jackman catheter not present MSK: no pitting edema, no clubbing Neuro: non-focal, moving all extremities Psych: cooperative, euthymic mood Patient Condition at Discharge: Good Plan - Discharge Summary Discharge Rx Participant: No New Discharge Prescriptions: New bisacodyL [Dulcolax] 10 mg RECTAL DAILY PRN suppositor PRN Reason: Constipation Lidocaine 5% Patch [Lidoderm 5% Patch] 1 patch TOPICAL DAILY patch HYDROmorphone [Dilaudid] 1 mg PO Q4H PRN 3 Days #18 tab PRN Reason: Pain Control Morphine Sulfate [Morphine Sulfate 10 MG/5 ML] 5 mg PO Q6H PRN 3 Days #30 ml PRN Reason: Pain Control Continue Buprenorphine [Butrans 10 MCG/HOUR] 1 patch TRANSDERM TU Ondansetron Odt [Zofran ODT] 4 mg PO Q8H PRN PRN Reason: Nausea Discontinued MORPHINE ORAL STEVE 2mg/mL [Morphine Oral Soln 2 MG/ML] 5 mg PO Q6H PRN PRN Reason: Pain Discharge Medication List Buprenorphine [Butrans 10 MCG/HOUR] 1 patch TRANSDERM TU 11/15/22 [History] Ondansetron Odt [Zofran ODT] 4 mg PO Q8H PRN 11/15/22 [History] Lidocaine 5% Patch [Lidoderm 5% Patch] 1 patch TOPICAL DAILY patch 01/23/23 [Rx] bisacodyL [Dulcolax] 10 mg RECTAL DAILY PRN suppositor 01/23/23 [Rx] HYDROmorphone [Dilaudid] 1 mg PO Q4H PRN 3 Days #18 tab 01/24/23 [Rx] Morphine Sulfate [Morphine Sulfate 10 MG/5 ML] 5 mg PO Q6H PRN 3 Days #30 ml 01/24/23 [Rx] Follow up Appointment(s)/Referral(s): Fred Van MD [STAFF PHYSICIAN] - 02/06/23 2:00 pm Page Stahl MD [Primary Care Provider] - 1-2 days Discharge Disposition: HOME WITH HOSPICE
[2023-01-24 16:58] LABS: Glucose,Whole Blood 151 mg/dL (70-110)
[2023-01-24] MEDS: HYDROmorphone 2 MG TAB PO PRN (20:47)
[2023-01-25 00:36] LABS: Glucose,Whole Blood 157 mg/dL (70-110)
[2023-01-25] MEDS: HYDROmorphone 2 MG TAB PO PRN ×2 (01:36→06:33)
[2023-01-25] MEDS: HYDROmorphone 0.5 MG/0.5 ML SYRINGE IVP PRN ×2 (04:24→09:36)
[2023-01-25 05:52] LABS: Glucose,Whole Blood 149 mg/dL (70-110)
[2023-01-25 06:09] LABS: ALT 150 U/L (4-34); AST 166 U/L (14-36); African American GFR (CKD) 47 (>60 ml/min/1.73 sqM); Albumin 2.3 g/dL (3.5-5.0); Albumin/Globulin Ratio 0.5; Anion Gap 7 mmol/L; Blood Urea Nitrogen 39 mg/dL (7-17); Calcium 8.7 mg/dL (8.4-10.2); Carbon Dioxide 29 mmol/L (22-30); Chloride 99 mmol/L (98-107); Globulin 4.2 g/dL; Glucose 162 mg/dL (74-99); Magnesium 1.8 mg/dL (1.6-2.3); Non-African American GFR(CKD) 41 (>60 ml/min/1.73 sqM); Phosphorus 3.8 mg/dL (2.5-4.5); Potassium 3.8 mmol/L (3.5-5.1); Sodium 135 mmol/L (137-145); Total Bilirubin 9.5 mg/dL (0.2-1.3); Total Protein 6.5 g/dL (6.3-8.2)
[2023-01-25 06:23] LABS: Alkaline Phosphatase 1477 U/L (38-126)
[2023-01-25] MEDS: FAT EMULSION 20% 250 ML in EMPTY BAG 1 BAG IV SCH (06:35)
[2023-01-25] MEDS: [UNRECOGNIZED DRUG - REMARK] IV SCH ×10 (06:36→08:15)
[2023-01-25 07:52] VITALS: BP 99/64; PULSE 92; RESP 16; TEMP 98.2
[2023-01-25] MEDS: LIDOCAINE 5% PATCH TOPICAL SCH (09:00)
[2023-01-25] MEDS: ENOXAPARIN 40 MG/0.4 ML SYRINGE SQ SCH (09:00)
--- NOTE | 2023-01-25 10:38 | P.DS ---
Providers Date of admission: 01/19/23 11:33 Expected date of discharge: 01/25/23 Attending physician: Marcia Francis MD Consults: 01/16/23 20:06 Consult Physician Routine Consulting Provider: Fred Van Consult Reason/Comments: known Do you want consulting provider notified?: Yes 01/17/23 09:59 Consult to Palliative Care Routine Consulting Provider: Norma Abarca Consult Reason/Comments: goals of care Do you want consulting provider notified?: Already Contacted 01/22/23 07:44 Consult Physician Routine Consulting Provider: Sp Dorantes Consult Reason/Comments: in pt rehab Do you want consulting provider notified?: Yes [facility]: Discharge Diagnosis: Metastatic renal cancer Acute on Chronic anemia, secondary to metastatic cancer Leukocytosis predominantly neutrophilic, secondary to metastatic cancer Intractable abdominal pain and left shoulder pain, secondary to metastatic cancer Transaminitis, secondary to advancement of metastatic cancer and CBD obstruction Prerenal azotemia Hospital Course: Patient is a very pleasant 67-year-old female with a past medical history of metastatic renal cancer currently on palliative care. She presented to the emergency department secondary to findings of uncontrolled pain, weakness, and abnormal labs. Upon arrival to the emergency department patient underwent full evaluation. CBC revealed significant leukocytosis with WBC count of 25.8 predominantly neutrophilic with neutrophils of 24.1, normocytic anemia with hemoglobin of 7.1. BMP revealing hypernatremia with sodium of 150 and hyperchloremia with chloride of 114 with prerenal azotemia with BUN of 38. Patient also with lactic acidosis with plasma lactic acid of 2.7. Liver profile revealing hyperbilirubinemia with bilirubin of 5.7 and transaminitis with AST of 135, ALT of 131, an alkaline phosphatase of 1538. Patient was admitted under our services with consultation to oncology and palliative care. Liver ultrasound completed and reviewed. Radiology report stating new moderate biliary dilation presumed from local neoplastic progression causing CBD obstruction. Order was initially placed for CT abdomen and pelvis to further evaluate CBD obstruction and possible metastatic progression, however patient declined at this time. Patient met with palliative care as well as hospice and plan was to discharge patient home with hospice. Patient seen and examined at bedside.[] Vital signs reviewed and stable. Gen: awake, alert HEENT: normocephalic, atraumatic, good hearing acuity, moist mucous membranes Resp: good air exchange, breathing comfortably with no accessory muscle use CVS: good distal perfusion x 4, GI: soft, NTTP, ND : no SPT, no CVAT, jackman catheter not present MSK: no pitting edema, no clubbing Neuro: non-focal, moving all extremities Psych: cooperative, euthymic mood A total of 32 minutes of time were spent preparing this complex discharge summary. Patient was discharged on 01/25/23 at 10:37. Patient Condition at Discharge: Poor Plan - Discharge Summary Discharge Rx Participant: No New Discharge Prescriptions: New bisacodyL [Dulcolax] 10 mg RECTAL DAILY PRN suppositor PRN Reason: Constipation Lidocaine 5% Patch [Lidoderm 5% Patch] 1 patch TOPICAL DAILY patch HYDROmorphone [Dilaudid] 1 mg PO Q4H PRN 3 Days #18 tab PRN Reason: Pain Control Morphine Sulfate [Morphine Sulfate 10 MG/5 ML] 5 mg PO Q6H PRN 3 Days #30 ml PRN Reason: Pain Control Continue Buprenorphine [Butrans 10 MCG/HOUR] 1 patch TRANSDERM TU Ondansetron Odt [Zofran ODT] 4 mg PO Q8H PRN PRN Reason: Nausea Discontinued MORPHINE ORAL STEVE 2mg/mL [Morphine Oral Soln 2 MG/ML] 5 mg PO Q6H PRN PRN Reason: Pain Discharge Medication List Buprenorphine [Butrans 10 MCG/HOUR] 1 patch TRANSDERM TU 11/15/22 [History] Ondansetron Odt [Zofran ODT] 4 mg PO Q8H PRN 11/15/22 [History] Lidocaine 5% Patch [Lidoderm 5% Patch] 1 patch TOPICAL DAILY patch 01/23/23 [Rx] bisacodyL [Dulcolax] 10 mg RECTAL DAILY PRN suppositor 01/23/23 [Rx] HYDROmorphone [Dilaudid] 1 mg PO Q4H PRN 3 Days #18 tab 01/24/23 [Rx] Morphine Sulfate [Morphine Sulfate 10 MG/5 ML] 5 mg PO Q6H PRN 3 Days #30 ml 01/24/23 [Rx] Follow up Appointment(s)/Referral(s): Fred Van MD [STAFF PHYSICIAN] - 02/06/23 2:00 pm Page Stahl MD [Primary Care Provider] - 1-2 days Discharge Disposition: HOME WITH HOSPICE
== END 2023-01-25 14:02 | disposition hospice, home (50) | DRG 687 ==
LOC: EC 15:48 → 5NMEDONC 20:09 → OBSVTOIN 01-19 11:33
PROVIDERS: ADMIT Internal Medicine; ATTEND Internal Medicine
PROC: 3E0436Z Introduction of Nutritional Substance into Central Vein, Percutaneous Approach (ICD-10-PCS; 2023-01-17)
PROC: 30233N1 Transfusion of Nonautologous Red Blood Cells into Peripheral Vein, Percutaneous Approach (ICD-10-PCS; principal; 2023-01-18)
PROC: DP0C2ZZ Beam Radiation of Other Bone using Photons >10 MeV (ICD-10-PCS; 2023-01-18)
PROC: DP0C1ZZ Beam Radiation of Other Bone using Photons 1 - 10 MeV (ICD-10-PCS; 2023-01-18)
DX: C64.1 Malignant neoplasm of right kidney, except renal pelvis (principal); C79.51 Secondary malignant neoplasm of bone; C79.9 Secondary malignant neoplasm of unspecified site; E87.0 Hyperosmolality and hypernatremia; K80.21 Calculus of gallbladder without cholecystitis with obstruction; E87.20 Acidosis, unspecified; G89.3 Neoplasm related pain (acute) (chronic); R13.10 Dysphagia, unspecified; E87.8 Other disorders of electrolyte and fluid balance, not elsewhere classified; Z66 Do not resuscitate; Z51.5 Encounter for palliative care; D63.0 Anemia in neoplastic disease; K59.00 Constipation, unspecified; E86.0 Dehydration; E87.6 Hypokalemia; R74.8 Abnormal levels of other serum enzymes; D72.829 Elevated white blood cell count, unspecified; I10 Essential (primary) hypertension; E78.5 Hyperlipidemia, unspecified; E66.9 Obesity, unspecified; Z68.35 Body mass index [BMI] 35.0-35.9, adult; E03.9 Hypothyroidism, unspecified; Z79.891 Long term (current) use of opiate analgesic; Z88.6 Allergy status to analgesic agent; Z71.3 Dietary counseling and surveillance
CPT/HCPCS: 36415; 76705; 77280; 77295; 77300; 77334; 77336; 77387; 77412; 80048; 80053; 81001; 82140; 82248; 82330; 83605; 83690; 83735; 84100; 84478; 85025; 85027; 85610; 85730; 86850; 86900; 86901; 86920; 87040; 96361; 96372; 96374; 96375; 96376; 99285